=== PATIENT | male | born 1935 | race African-American/Black ===

== ENCOUNTER 2020-08-10 08:13 | Inpatient (IN) | payer OTHER ==
[~2020-08-10] VITALS: Ht 188 cm; Wt 50.8 kg
[2020-08-10] VITALS (10 sets, daily range): BP systolic 126–158; BP diastolic 55–113
--- NOTE | 2020-08-10 08:15 | NUR ---
ED Nurse Note: pt [facility] c/o desaturation to 81%n and dyspnea started this am. pt placed directly into isolation room onto telemetry monitoring. md aware of pt and eval of pt. resp therapist here to obtain ABG and then pt placed on NRB mask with improved saturation to 97%. pt with shallow dyspnea noted. occ coarse non productive cough noted. pt with incomprehensible speech. pt unable to follow commands. pt with iv attempts being made. difficult to obtain labs. labs sent except blood cultures as unable to obtain.
--- NOTE | 2020-08-10 08:20 | Emergency Room Report ---
History of Present Illness General Chief Complaint: Dyspnea/Respdistress Source: Medical Record, EMS Present Illness HPI Disclaimer: Please note that this report is being documented using DRAGON technology. This can lead to erroneous entry secondary to incorrect interpretation by the dictating instrument. HPI: 85-year-old male presents for evaluation of hypoxia. Presents from [facility] for decreased oxygen saturation in the 80s. Placed on nonrebreather improved to 92%. Patient is lethargic and cannot provide any add itional history at this time. Accompanying paperwork shows recent admission to [facility] for sepsis secondary to COVID-19. He is full code according to that documentation but no POLST is provided. No further information available from EMS. PMH: Hypertension, diabetes, COVID-19 PSH: Unable to obtain Allergies: Unable to obtain Social Hx: Unable to obtain Allergies: Coded Allergies: No Known Allergies (Unverified , 08/10/20) COVID-19 Screening Contact w/high risk pt: No Experienced COVID-19 symptoms?: Yes COVID-19 Testing performed SUCTION ROLLER: Yes COVID-19 Screening: Positive COVID-19 COVID-19 Testing Source: [facility] Review of Systems All Other Systems: limited - Unable to obtain from patient Physical Exam Vital Signs Date Time Temp Pulse Resp B/P (MAP) Pulse Ox O2 Delivery O2 Flow Rate FiO2 08/10/20 08:07 97.9 96 26 158/84 (108) 92 Non-Rebreather 15.0 General: Lethargic but arousable to light stimulation. HEENT: NC/AT. EOMI. Cardiovascular: Tachycardic. S1 and S2 normal. No murmur appreciated Resp: Tachypnea, nonrebreather 15 L. Pulse ox 92%. Shallow breathing. Abdomen: Abdomen is soft, nondistended. Nontender Skin: Intact. No abrasions, laceration or rash over the exposed skin MSK: Frail appearing. Decreased bulk globally. Moving all extremities. Neuro: Awake but lethargic. Procedures Critical Care Time Critical Care Time Total critical care time: Approximately 45 minutes Due to a high probability of clinically significant, life threatening deterioration, the patient required the highest level of preparedness to intervene emergently and I personally spent this critical care time directly and personally managing the patient. This critical care time included obtaining a history, examining the patient, pulse oximetry, ordering and reviewing studies, ordering treatments, evaluating response to treatment and updating management plan as needed, frequent reassessment and discussion with other providers as well as arranging for ultimate disposition. This critical to care time was performed to assess and manage the high probability of life-threatening deterioration that could result in multiorgan failure. This critical care time is separate from the separately billable procedures and treating other patients. Medical Decision Making Diagnostic Impression: Primary Impression: Encephalopathy Additional Impressions: COVID-19 Elevated d-dimer Sepsis ER Course Is an 85-year-old male presenting for evaluation of respiratory distress and hypoxia. Recently tested positive for COVID-19 and appears he was admitted to [facility]. Arrives on 15 L nonrebreather. Blood gas shows no acidosis oxygen saturations are maintained. No obvious consolidation appreciated on x-ray. Patient remains positive for COVID-19 according to rapid swab. Receiving 30 cc/kg IV fluid bolus for tachycardia. Broad cultures are sent. He is afebrile. Decadron given. Will admit the patient to his assigned hospitalist per health plan, Dr. Fagan, for sepsis secondary to COVID-19 infection. Sepsis reevaluation: I, Dr. Kj Tejada, reevaluated the patient Capillary refill: Less than 2 seconds MAP: 130 Heart rate: 120 Respiratory rate: 20 Initial Lactate: 4.5 Repeat Lactate: Pending Pressors: Not indicated at this time No signs of fluid overload Laboratory Tests Test 08/10/20 08:08 08/10/20 08:41 Arterial Blood pH 7.390 (7.350-7.450) Arterial Blood Partial Pressure CO2 30.7 mmHg (35.0-45.0) L Arterial Blood Partial Pressure O2 80.3 mmHg (75.0-100.0) Arterial Blood HCO3 18.2 mmol/L (22.0-26.0) L Arterial Blood Oxygen Saturation 94.7 % (95-100) L Arterial Blood Base Excess -5.6 (-2-2) L Oleksandr Test Positive White Blood Count 6.7 K/UL (4.8-10.8) Red Blood Count 4.24 M/UL (4.70-6.10) L Hemoglobin 13.8 G/DL (14.2-18.0) L Hematocrit 42.3 % (42.0-52.0) Mean Corpuscular Volume 100 FL (80-99) H Mean Corpuscular Hemoglobin 32.6 PG (27.0-31.0) H Mean Corpuscular Hemoglobin Concent 32.7 G/DL (32.0-36.0) Red Cell Distribution Width 11.2 % (11.6-14.8) L Platelet Count 119 K/UL (150-450) L Mean Platelet Volume 9.1 FL (6.5-10.1) Neutrophils (%) (Auto) 83.7 % (45.0-75.0) H Lymphocytes (%) (Auto) 10.0 % (20.0-45.0) L Monocytes (%) (Auto) 5.8 % (1.0-10.0) Eosinophils (%) (Auto) 0.2 % (0.0-3.0) Basophils (%) (Auto) 0.4 % (0.0-2.0) Prothrombin Time 12.0 SEC (9.30-11.50) H Prothrombin Time INR 1.1 (0.9-1.1) Activated Partial Thromboplast Time 28 SEC (23-33) D-Dimer 0.95 mg/L FEU (0.00-0.49) H Sodium Level 139 MMOL/L (136-145) Potassium Level 4.9 MMOL/L (3.5-5.1) Chloride Level 105 MMOL/L (98-107) Carbon Dioxide Level 23 MMOL/L (21-32) Anion Gap 11 mmol/L (5-15) Blood Urea Nitrogen 13 mg/dL (7-18) Creatinine 1.3 MG/DL (0.55-1.30) Estimated Glomerular Filtration Rate > 60 mL/min (>60) Glucose Level 140 MG/DL (74-106) H Lactic Acid Level 4.60 mmol/L (0.4-2.0) H Calcium Level 9.3 MG/DL (8.5-10.1) Phosphorus Level 3.2 MG/DL (2.5-4.9) Magnesium Level 2.0 MG/DL (1.8-2.4) Ferritin 1927 NG/ML (8-388) H Total Bilirubin 0.8 MG/DL (0.2-1.0) Aspartate Amino Transferase (AST) 88 U/L (15-37) H Alanine Aminotransferase (ALT) 83 U/L (12-78) H Alkaline Phosphatase 67 U/L (46-116) Lactate Dehydrogenase 396 U/L (81-234) H Total Creatine Kinase 252 U/L (26-308) Creatine Kinase MB 1.3 NG/ML (0.0-3.6) Creatine Kinase MB Relative Index 0.5 Troponin I 0.000 ng/mL (0.000-0.056) C-Reactive Protein, Quantitative 3.2 mg/dL (0.00-0.90) H Pro-B-Type Natriuretic Peptide 818 pg/mL (0-125) H Total Protein 7.4 G/DL (6.4-8.2) Albumin 3.3 G/DL (3.4-5.0) L Globulin 4.1 g/dL Albumin/Globulin Ratio 0.8 (1.0-2.7) L Lipase 80 U/L (73-393) Microbiology Date/Time Source Procedure Growth Status 08/10/20 08:41 Nasopharynx SARS-CoV-2 RdRp Gene Assay - Final Complete EKG Diagnostic Results Troponin ordered: Yes When was troponin ordered?: Aug 10, 2020 EKG Time: 08:46 Rate: tachycardiac Rhythm: NSR Other Impression Sinus tachycardia, normal axis, nonspecific ST changes, QTc interval 433 ms Rhythm Strip Diag. Results Rhythm Strip Time: 08:46 EP Interpretation: yes Rate: 110 Rhythm: NSR, no PVC's, no ectopy Chest X-Ray Diagnostic Results Chest X-Ray Diagnostic Results : Chest X-Ray Ordered: Yes # of Views/Limited/Complete: 1 View Indication: Shortness of Breath EP Interpretation: Yes Interpretation: no consolidation, no effusion, no pneumothorax, no acute cardiopulmonary disease Impression: No acute disease Electronically Signed by: Electronically signed by Dr. Kj Tejada MD Last Vital Signs Date Time Temp Pulse Resp B/P (MAP) Pulse Ox O2 Delivery O2 Flow Rate FiO2 08/10/20 08:07 97.9 96 26 158/84 (108) 92 Non-Rebreather 15.0 Disposition: ADMITTED INPATIENT Condition: Serious Kj Tejada MD Aug 10, 2020 08:20
[2020-08-10] MEDS ORDERED: FERROUS SULFAT325 MG ORAL (08:24)
[2020-08-10] MEDS ORDERED: MULTIVITAMINS1 EAC8 ORAL (08:24)
[2020-08-10] MEDS ORDERED: LOVASTATIN20 MG ORAL (08:24)
[2020-08-10] MEDS ORDERED: LATANOPROST2.5 ML BOTH EYES (08:24)
[2020-08-10] MEDS ORDERED: COSOPT EYE DROP10 M1 BOTH EYES (08:24)
[2020-08-10] MEDS ORDERED: XARELTO10 MG ORAL (08:24)
--- NOTE | 2020-08-10 08:50 | NUR ---
ED Nurse Note: pt with improved saturation with NRB in use. remains at same mentation. md aware of ecg resulted.
--- NOTE | 2020-08-10 09:21 | NUR ---
ED Nurse Note: Called [facility] for xray.
[2020-08-10 09:39] LABS: BASOPHILS % (AUTO) 0.4 % (0.0-2.0); EOSINOPHILS % (AUTO) 0.2 % (0.0-3.0); HEMATOCRIT 42.3 % (42.0-52.0); HEMOGLOBIN 13.8 G/DL (14.2-18.0); MEAN CORPUSCULAR VOLUME 100 FL (80-99); MONOCYTES % (AUTO) 5.8 % (1.0-10.0); NEUTROPHILS % (AUTO) 83.7 % (45.0-75.0); PLATELET COUNT 119 K/UL (150-450); RED BLOOD COUNT 4.24 M/UL (4.70-6.10); RED CELL DISTRIBUTION WIDTH 11.2 % (11.6-14.8); WHITE BLOOD COUNT 6.7 K/UL (4.8-10.8)
[2020-08-10] MEDS ORDERED: Sodium Chloride 2,200 ML IVLG ONE (09:45)
[2020-08-10 09:49] LABS: INR 1.1 (0.9-1.1)
[2020-08-10 09:50] LABS: ANION GAP 11 mmol/L (5-15); BLOOD UREA NITROGEN 13 mg/dL (7-18); CALCIUM 9.3 MG/DL (8.5-10.1); CARBON DIOXIDE 23 MMOL/L (21-32); CHLORIDE 105 MMOL/L (98-107); CREATININE 1.3 MG/DL (0.55-1.30); POTASSIUM 4.9 MMOL/L (3.5-5.1); SODIUM 139 MMOL/L (136-145)
[2020-08-10 10:19] LABS: ALANINE AMINOTRANSFERASE 83 U/L (12-78); ALBUMIN 3.3 G/DL (3.4-5.0); ALBUMIN/GLOBULIN RATIO 0.8 (1.0-2.7); ALKALINE PHOSPHATASE 67 U/L (46-116); ASPARTATE AMINO TRANSFERASE 88 U/L (15-37); BILIRUBIN,TOTAL 0.8 MG/DL (0.2-1.0); CKMB 1.3 NG/ML (0.0-3.6); CREATINE KINASE 252 U/L (26-308); FERRITIN 1927 NG/ML (8-388); LACTATE DEHYDROGENASE 396 U/L (81-234); PHOSPHORUS 3.2 MG/DL (2.5-4.9)
[2020-08-10] MEDS ORDERED: Vancomycin 1 GM in NS 275 ML IVPB ONE (10:30)
[2020-08-10] MEDS ORDERED: Piperacillin/Tazobactam 3.375 GM in NS 110 ML IVPB ONE (10:30)
--- NOTE | 2020-08-10 10:44 | NUR ---
ED Nurse Note: learning and development officer called to draw bcx2 and repeat lactic sample as pt is difficult lab draw
--- NOTE | 2020-08-10 11:10 | NUR ---
ED Nurse Note: repeat lactic sent and bc x2 sent. pt changed to 3L via NC O2 and antibitoics infusing.
--- NOTE | 2020-08-10 11:18 | NUR ---
ED Nurse Note: Ulysses rouse of pt.
[2020-08-10 11:32] LABS: APPEARANCE,URINE CLEAR; BILIRUBIN, URINE NEGATIVE (NEGATIVE); GLUCOSE, URINE (UA) 2+ (NEGATIVE); KETONES,URINE 1+ (NEGATIVE); LEUKOCYTE ESTERASE ,URINE NEGATIVE (NEGATIVE); NITRITE,URINE NEGATIVE (NEGATIVE); PH,URINE 6 (4.5-8.0); PROTEIN,URINE 2+ (NEGATIVE); UROBILINOGEN,URINE NORMAL MG/DL (0.0-1.0)
[2020-08-10 11:40] LABS: COLOR,URINE YELLOW
--- NOTE | 2020-08-10 11:48 | History and Physical ---
Orly Dick SET UP TECHNICIAN 08/10/20 1148: History of Present Illness General Date patient seen: Aug 10, 2020 Time patient seen: 11:00 Reason for Hospitalization: Dyspnea/Respdistress Present Illness HPI 85 years old male, resident of [facility] facility, with past medical history of hypertension, diabetes mellitus, recent COVID-19, was sent for evaluation due to hypoxia. Patient was noted in the facility to have pulse oximetry in the 80s. Patient was placed on 100% nonrebreathing mask with improvement in saturation to 92%. Patient was unable to provide any history . Patient was recently admitted to [facility] for generalized weakness, was diagnosed with COVID-19, was doing better and never was treated with steroids or Remdesivivr. Patient was on Xarelto for DVT prophylaxis Upon evaluation in emergency department pulse oximetry was 92% on 100% nonrebreather mask, ABG on NRM was stable. Rapid COVID-19 was positive No leukocytosis , hemoglobin 13.8 , hematocrit 42.3, platelet count 119 . D-dimer 0.95 LDH 396, ferritin 1927, CRP 3.2 Electrolytes and renal parameters stable. Lactic acid 4.6 Troponin negative , pro BNP [address] no acute ischemic changes Albumin 3.3 . Urinalysis pending at this time. CXR final report pending In emergency department patient received empiric antibiotic, septic work-up initiated : pt received fluid bolus, pancultured, started on empiric antibiotic and will be admitted for further management. Allergies: Coded Allergies: No Known Allergies (Unverified , 08/10/20) COVID-19 Screening Contact w/high risk pt: No Experienced COVID-19 symptoms?: Yes Coronavirus symptoms experienc: Shortness of Breath Medication History Scheduled Aspirin* (Aspirin*), 81 MG ORAL DAILY, (Reported) Dorzolamide Hcl/Timolol Maleat (Cosopt Eye Drops), ML OP TWICE A DAY, (Reported) Enoxaparin* (Lovenox*), 40 MG SUBQ DAILY, (Reported) Ferrous Sulfate* (Ferrous Sulfate*), 325 MG ORAL DAILY, (Reported) Latanoprost* (Xalatan*), 1 DROP BOTH EYES BEDTIME, (Reported) Lovastatin (Lovastatin), 20 MG ORAL BEDTIME, (Reported) Multivitamin With Minerals (Multivitamins With Minerals*), 1 TAB ORAL DAILY, (Reported) Rivaroxaban (Xarelto*), 10 MG ORAL DAILY, (Reported) Patient History Healthcare decision maker Resuscitation status full code Advanced Directive on File Review of Systems ROS Narrative unable to provide given encephalopathy Physical Exam General Appearance: cachetic, other - chroncially ill looking, bedridden frail male Lines, tubes and drains: peripheral HEENT: normocephalic, atraumatic, anicteric, other - on NRM Neck: non-tender, normal inspection, other - trachea midline Respiratory/Chest: no accessory muscle use, other - few isolated rhonchi Cardiovascular/Chest: regular rhythm, tachycardia - ST low tachy Abdomen: normal bowel sounds, non tender, soft Extremities: no calf tenderness, normal capillary refill, no edema Neurologic: abnormal gait, other - confused, poorly responsive, moves all extremities Musculoskeletal: atrophy - BLE Last 24 Hour Vital Signs Date Time Temp Pulse Resp B/P (MAP) Pulse Ox O2 Delivery O2 Flow Rate FiO2 08/10/20 11:13 99 22 138/62 100 Nasal Cannula 3.0 08/10/20 11:00 118 25 138/62 99 Non-Rebreather 08/10/20 10:26 102 23 Non-Rebreather 15.0 08/10/20 10:00 102 23 150/104 99 Non-Rebreather 08/10/20 09:00 102 20 158/84 98 Non-Rebreather 08/10/20 08:15 108 21 151/113 86 Room Air 08/10/20 08:07 97.9 96 26 158/84 (108) 92 Non-Rebreather 15.0 Laboratory Tests Test 08/10/20 08:08 08/10/20 08:41 08/10/20 08:50 08/10/20 11:08 Arterial Blood pH 7.390 (7.350-7.450) Arterial Blood Partial Pressure CO2 30.7 mmHg (35.0-45.0) L Arterial Blood Partial Pressure O2 80.3 mmHg (75.0-100.0) Arterial Blood HCO3 18.2 mmol/L (22.0-26.0) L Arterial Blood Oxygen Saturation 94.7 % (95-100) L Arterial Blood Base Excess -5.6 (-2-2) L Oleksandr Test Positive White Blood Count 6.7 K/UL (4.8-10.8) Red Blood Count 4.24 M/UL (4.70-6.10) L Hemoglobin 13.8 G/DL (14.2-18.0) L Hematocrit 42.3 % (42.0-52.0) Mean Corpuscular Volume 100 FL (80-99) H Mean Corpuscular Hemoglobin 32.6 PG (27.0-31.0) H Mean Corpuscular Hemoglobin Concent 32.7 G/DL (32.0-36.0) Red Cell Distribution Width 11.2 % (11.6-14.8) L Platelet Count 119 K/UL (150-450) L Mean Platelet Volume 9.1 FL (6.5-10.1) Neutrophils (%) (Auto) 83.7 % (45.0-75.0) H Lymphocytes (%) (Auto) 10.0 % (20.0-45.0) L Monocytes (%) (Auto) 5.8 % (1.0-10.0) Eosinophils (%) (Auto) 0.2 % (0.0-3.0) Basophils (%) (Auto) 0.4 % (0.0-2.0) Prothrombin Time 12.0 SEC (9.30-11.50) H Prothromb Time International Ratio 1.1 (0.9-1.1) Activated Partial Thromboplast Time 28 SEC (23-33) D-Dimer 0.95 mg/L FEU (0.00-0.49) H Sodium Level 139 MMOL/L (136-145) Potassium Level 4.9 MMOL/L (3.5-5.1) Chloride Level 105 MMOL/L (98-107) Carbon Dioxide Level 23 MMOL/L (21-32) Anion Gap 11 mmol/L (5-15) Blood Urea Nitrogen 13 mg/dL (7-18) Creatinine 1.3 MG/DL (0.55-1.30) Estimat Glomerular Filtration Rate > 60 mL/min (>60) Glucose Level 140 MG/DL (74-106) H Lactic Acid Level 4.60 mmol/L (0.4-2.0) H Pending Calcium Level 9.3 MG/DL (8.5-10.1) Phosphorus Level 3.2 MG/DL (2.5-4.9) Magnesium Level 2.0 MG/DL (1.8-2.4) Ferritin 1927 NG/ML (8-388) H Total Bilirubin 0.8 MG/DL (0.2-1.0) Aspartate Amino Transf (AST/SGOT) 88 U/L (15-37) H Alanine Aminotransferase (ALT/SGPT) 83 U/L (12-78) H Alkaline Phosphatase 67 U/L (46-116) Lactate Dehydrogenase 396 U/L (81-234) H Total Creatine Kinase 252 U/L (26-308) Creatine Kinase MB 1.3 NG/ML (0.0-3.6) Creatine Kinase MB Relative Index 0.5 Troponin I 0.000 ng/mL (0.000-0.056) C-Reactive Protein, Quantitative 3.2 mg/dL (0.00-0.90) H Pro-B-Type Natriuretic Peptide 818 pg/mL (0-125) H Total Protein 7.4 G/DL (6.4-8.2) Albumin 3.3 G/DL (3.4-5.0) L Globulin 4.1 g/dL Albumin/Globulin Ratio 0.8 (1.0-2.7) L Lipase 80 U/L (73-393) Urine Color Pending Urine Appearance Pending Urine pH Pending Urine Specific [place] Pending Urine Protein Pending Urine Glucose (UA) Pending Urine Ketones Pending Urine Blood Pending Urine Nitrite Pending Urine Bilirubin Pending Urine Urobilinogen Pending Urine Leukocyte Esterase Pending Microbiology Date/Time Source Procedure Growth Status 08/10/20 08:41 Nasopharynx SARS-CoV-2 RdRp Gene Assay - Final Complete Height (Feet): 6 Height (Inches): 2.00 Weight (Pounds): 160 Medications Current Medications Medications (Trade) Dose Ordered Sig/Torsten Route PRN Reason Start Time Stop Time Status Last Admin Dose Admin Vancomycin HCl 1 gm/Sodium Chloride 275 ml @ 183.708 mls/hr ONCE ONCE IVPB 08/10/20 10:30 08/10/20 11:59 Assessment/Plan Assessment/Plan: ASSESSMENT Probably sepsis Recent COVID infection/ never treated Probable PNA Aspiration risk Acute encephalopathy Elevated D dimer HTN DM Protein calorie malnutrition PLAN OF CARE admit to isolation room titrate Fio2 to keep sat above 92%, wean down from NRM as possible Albuterol via MDI prn empiric abx, fup with cx steroids ID consult pending recent COVID 19 at [facility], probably treated with steroids, abx and Remdesivir - will check link closely monitor resp status fup with CXR on Tuesday venous Duplex BLE aspiration precautions DVT prophylaxis BSSE when more awake gentle hydration keep NPO for now BP and BS management GI prophylaxis route sales manager consult supportive care full code case discussed and evaluated by supervising physician Sonu Fagan MD 08/10/20 1548: History of Present Illness General Reason for Hospitalization: Dyspnea/Respdistress Present Illness Allergies: Coded Allergies: No Known Allergies (Unverified , 08/10/20) Medication History Scheduled Aspirin* (Aspirin*), 81 MG ORAL DAILY, (Reported) Dorzolamide Hcl/Timolol Maleat (Cosopt Eye Drops), ML OP TWICE A DAY, (Reported) Enoxaparin* (Lovenox*), 40 MG SUBQ DAILY, (Reported) Ferrous Sulfate* (Ferrous Sulfate*), 325 MG ORAL DAILY, (Reported) Latanoprost* (Xalatan*), 1 DROP BOTH EYES BEDTIME, (Reported) Lovastatin (Lovastatin), 20 MG ORAL BEDTIME, (Reported) Multivitamin With Minerals (Multivitamins With Minerals*), 1 TAB ORAL DAILY, (Reported) Rivaroxaban (Xarelto*), 10 MG ORAL DAILY, (Reported) Orly Dick NP Aug 10, 2020 11:48 Sonu Fagan MD Aug 10, 2020 15:48
--- NOTE | 2020-08-10 11:55 | NUR ---
ED Nurse Note: pt continues to tolerate O2 via NC. abx and ivf infusion as noted. pt without mental status changes pt is awake and confused.
[2020-08-10] MEDS ORDERED: dexAMETHasone 10mg/ml Inj IV ONE (12:00)
--- NOTE | 2020-08-10 12:06 | NUR ---
ED Nurse Note: pt to be admitted to SDU at this time per dr reyez, lost charge card clerk notifying rn appliance service supervisor.
[2020-08-10] MEDS ORDERED: Vancomycin 750mg/NS 275ml IVPB ONE ×4 (13:30→16:00)
[2020-08-10] MEDS ORDERED: Albuterol 90mcg Inhaler 8gm INH PRN (13:30)
[2020-08-10] MEDS ORDERED: Potassium Chloride 10 MEQ in D5 1/2NS 1,000 ML IV SCH (13:30)
--- NOTE | 2020-08-10 14:08 | NUR ---
ED Nurse Note: report given to SDU rn. pt with stable vs.
--- NOTE | 2020-08-10 14:24 | NUR ---
ED Nurse Note: Dr. Ventura here to ambrose pt.
--- NOTE | 2020-08-10 14:30 | NUR ---
ED Nurse Note: pt transported to [facility]du with covid and acls protocols.
[2020-08-10] MEDS ORDERED: Varibar Pudding 230ml MC PRN (14:45)
[2020-08-10] MEDS ORDERED: Varibar Nectar 240ml MC PRN (14:45)
[2020-08-10] MEDS ORDERED: Varibar Thin Liquid powder 148gm MC PRN (14:45)
[2020-08-10] MEDS ORDERED: Varibar Honey 250ml MC PRN (14:45)
--- NOTE | 2020-08-10 15:00 | NUR ---
NURSE NOTES: Received report from MIRTA Leigh. Patient in bed resting, no active s/s cardiac, respiratory distress noticed at this time. Patient on 3L oxygen via NC, o2 sat 97% at this time. Patient open eyes spontaneously, does not follow command, rambling speech. laboratory monitor on, SR with HR 78. Vital signs taken. Espino Catheter patent, intact, draining well to gravity. IV on right and left hand 20G, asymptomatic, patent, intact. NPO at this time. contact, droplet, standard isolation initiate. Bed in lowest position, side rails upx3, call light within reach, bed alarm on, Will continue to monitor.
--- NOTE | 2020-08-10 15:05 | Infectious Diseases Prog Note ---
Assessment/Plan Assessment/Plan Full consult dictated: A) 1) covid-19 infection, pna, hypoxia 2) possible bacterial pna 3) possible sepsis P) 1) vancomycin and zosyn 2) remdesivir and dexamethasone 3) supportive care 4) will f/u 5) thanks Subjective Allergies: Coded Allergies: No Known Allergies (Unverified , 08/10/20) Objective Last 24 Hour Vital Signs Date Time Temp Pulse Resp B/P (MAP) Pulse Ox O2 Delivery O2 Flow Rate FiO2 08/10/20 14:13 86 23 129/80 100 Nasal Cannula 3.0 08/10/20 13:30 89 23 138/79 100 Nasal Cannula 3.0 08/10/20 11:54 95 22 127/55 100 Nasal Cannula 3.0 08/10/20 11:13 99 22 138/62 100 Nasal Cannula 3.0 08/10/20 11:00 118 25 138/62 99 Non-Rebreather 08/10/20 10:26 102 23 Non-Rebreather 15.0 08/10/20 10:00 102 23 150/104 99 Non-Rebreather 08/10/20 09:00 102 20 158/84 98 Non-Rebreather 08/10/20 08:15 108 21 151/113 86 Room Air 08/10/20 08:07 97.9 96 26 158/84 (108) 92 Non-Rebreather 15.0 Height (Feet): 6 Height (Inches): 2.00 Weight (Pounds): 160 Microbiology Date/Time Source Procedure Growth Status 08/10/20 08:41 Nasopharynx SARS-CoV-2 RdRp Gene Assay - Final Complete Laboratory Tests Test 08/10/20 08:08 08/10/20 08:41 08/10/20 08:50 08/10/20 11:08 Arterial Blood pH 7.390 (7.350-7.450) Arterial Blood Partial Pressure CO2 30.7 mmHg (35.0-45.0) L Arterial Blood Partial Pressure O2 80.3 mmHg (75.0-100.0) Arterial Blood HCO3 18.2 mmol/L (22.0-26.0) L Arterial Blood Oxygen Saturation 94.7 % (95-100) L Arterial Blood Base Excess -5.6 (-2-2) L Oleksandr Test Positive White Blood Count 6.7 K/UL (4.8-10.8) Red Blood Count 4.24 M/UL (4.70-6.10) L Hemoglobin 13.8 G/DL (14.2-18.0) L Hematocrit 42.3 % (42.0-52.0) Mean Corpuscular Volume 100 FL (80-99) H Mean Corpuscular Hemoglobin 32.6 PG (27.0-31.0) H Mean Corpuscular Hemoglobin Concent 32.7 G/DL (32.0-36.0) Red Cell Distribution Width 11.2 % (11.6-14.8) L Platelet Count 119 K/UL (150-450) L Mean Platelet Volume 9.1 FL (6.5-10.1) Neutrophils (%) (Auto) 83.7 % (45.0-75.0) H Lymphocytes (%) (Auto) 10.0 % (20.0-45.0) L Monocytes (%) (Auto) 5.8 % (1.0-10.0) Eosinophils (%) (Auto) 0.2 % (0.0-3.0) Basophils (%) (Auto) 0.4 % (0.0-2.0) Prothrombin Time 12.0 SEC (9.30-11.50) H Prothromb Time International Ratio 1.1 (0.9-1.1) Activated Partial Thromboplast Time 28 SEC (23-33) D-Dimer 0.95 mg/L FEU (0.00-0.49) H Sodium Level 139 MMOL/L (136-145) Potassium Level 4.9 MMOL/L (3.5-5.1) Chloride Level 105 MMOL/L (98-107) Carbon Dioxide Level 23 MMOL/L (21-32) Anion Gap 11 mmol/L (5-15) Blood Urea Nitrogen 13 mg/dL (7-18) Creatinine 1.3 MG/DL (0.55-1.30) Estimat Glomerular Filtration Rate > 60 mL/min (>60) Glucose Level 140 MG/DL (74-106) H Lactic Acid Level 4.60 mmol/L (0.4-2.0) H 4.10 mmol/L (0.66-2.22) H Calcium Level 9.3 MG/DL (8.5-10.1) Phosphorus Level 3.2 MG/DL (2.5-4.9) Magnesium Level 2.0 MG/DL (1.8-2.4) Ferritin 1927 NG/ML (8-388) H Total Bilirubin 0.8 MG/DL (0.2-1.0) Aspartate Amino Transf (AST/SGOT) 88 U/L (15-37) H Alanine Aminotransferase (ALT/SGPT) 83 U/L (12-78) H Alkaline Phosphatase 67 U/L (46-116) Lactate Dehydrogenase 396 U/L (81-234) H Total Creatine Kinase 252 U/L (26-308) Creatine Kinase MB 1.3 NG/ML (0.0-3.6) Creatine Kinase MB Relative Index 0.5 Troponin I 0.000 ng/mL (0.000-0.056) C-Reactive Protein, Quantitative 3.2 mg/dL (0.00-0.90) H Pro-B-Type Natriuretic Peptide 818 pg/mL (0-125) H Total Protein 7.4 G/DL (6.4-8.2) Albumin 3.3 G/DL (3.4-5.0) L Globulin 4.1 g/dL Albumin/Globulin Ratio 0.8 (1.0-2.7) L Lipase 80 U/L (73-393) Urine Color Yellow Urine Appearance Clear Urine pH 6 (4.5-8.0) Urine Specific [place] 1.015 (1.005-1.035) Urine Protein 2+ (NEGATIVE) H Urine Glucose (UA) 2+ (NEGATIVE) H Urine Ketones 1+ (NEGATIVE) H Urine Blood 2+ (NEGATIVE) H Urine Nitrite Negative (NEGATIVE) Urine Bilirubin Negative (NEGATIVE) Urine Urobilinogen Normal MG/DL (0.0-1.0) Urine Leukocyte Esterase Negative (NEGATIVE) Urine RBC 2-4 /HPF (0 - 0) H Urine WBC 0 /HPF (0 - 0) Urine Squamous Epithelial Cells Few /LPF (NONE/OCC) Urine Bacteria Few /HPF (NONE) Current Medications Medications (Trade) Dose Ordered Sig/Torsten Route PRN Reason Start Time Stop Time Status Last Admin Dose Admin Acetaminophen (Tylenol) 650 mg Q4H PRN ORAL Mild Pain (Pain Scale 1-3) 08/10/20 11:45 09/09/20 11:44 Albuterol Sulfate (Proventil MDI) 2 puff Q4H PRN INH Shortness of Breath 08/10/20 13:30 11/08/20 13:29 Barium Sulfate (Varibar Honey) 250 ml NOW PRN MC RAD 08/10/20 14:45 08/13/20 14:34 Barium Sulfate (Varibar [place]) 240 ml NOW PRN MC RAD 08/10/20 14:45 08/13/20 14:34 Barium Sulfate (Varibar Pudding) 230 ml NOW PRN MC RAD 08/10/20 14:45 08/13/20 14:34 Barium Sulfate (Varibar Thin Liquid powder) 148 gm NOW PRN MC RAD 08/10/20 14:45 08/13/20 14:34 Dexamethasone Sodium Phosphate (Decadron 10mg/ ml Inj) 6 mg DAILY IV 08/11/20 09:00 08/20/20 09:01 Dextrose (Dextrose 50%) 25 ml Q30M PRN IV Hypoglycemia 08/10/20 11:45 11/08/20 11:44 Dextrose (Dextrose 50%) 50 ml Q30M PRN IV Hypoglycemia 08/10/20 11:45 11/08/20 11:44 Dextrose/Sodium Chloride 1,000 ml @ 50 mls/hr Q20H IV 08/10/20 12:45 09/09/20 12:44 Heparin Sodium (Porcine) (Heparin 5000 units/ml) 5,000 units EVERY 12 HOURS SUBQ 08/10/20 21:00 09/24/20 20:59 Pantoprazole (Protonix) 40 mg DAILY IV 08/11/20 09:00 09/10/20 08:59 Piperacillin Sod/ Tazobactam Sod 3.375 gm/Sodium Chloride 110 ml @ 27.5 mls/hr EVERY 8 HOURS IVPB 08/10/20 18:00 08/15/20 17:59 Remdesivir 100 mg/ Sodium Chloride 250 ml @ 250 mls/hr Q24H IV 08/11/20 18:00 08/14/20 18:59 Remdesivir 200 mg/ Sodium Chloride 250 ml @ 125 mls/hr ONCE IV 08/10/20 18:00 08/10/20 19:59 Vancomycin HCl (Vanco pharmacy to dose) 1 ea DAILY PRN MISC Per rx protocol 08/10/20 11:45 09/09/20 11:44 Vancomycin HCl 500 mg/Dextrose 110 ml @ 110 mls/hr Q12H IVPB 08/10/20 23:00 08/15/20 22:59 Byron Byers MD Aug 10, 2020 15:05
[2020-08-10] MEDS ORDERED: LOVENOX10 M4 SUBQ (15:07)
[2020-08-10] MEDS ORDERED: ASPIRIN81 MG ORAL (15:07)
--- NOTE | 2020-08-10 15:40 | NUR ---
NURSE NOTES: Per Kapil WATER TAXI OPERATOR, NPO until speech evaluation, Oxygen 3L via NC.
[2020-08-10] MEDS: D5 1/2NS 1,000 ML IV SCH (15:51)
--- NOTE | 2020-08-10 17:50 | NUR ---
NURSE NOTES: Per JETT Dick, sliding scale with average. Order noted, entered, and carried out.
[2020-08-10] MEDS ORDERED: Loading Dose:Remdesivir 200mg/NS 210ml IV SCH ×2 (18:00)
[2020-08-10] MEDS: Piperacillin/Tazobactam 3.375 GM in NS 110 ML IVPB SCH (18:29)
--- NOTE | 2020-08-10 18:30 | NUR ---
NURSE NOTES: Per Dr. Byers, Remdesvir ordered, per pharmacist, no consent needed at this time.
--- NOTE | 2020-08-10 19:20 | NUR ---
NURSE NOTES: Received report from MIRTA Uribe. Pt asleep in bed, Alert and oriented x 1 to name only. Pt follows commands, afebrile and no respiratory distress noted. On Nasal cannula at 3 lpm pt saturating at 99-100%. With right wrist 20g and left hand 22g IV lines intact, patent and asymptomatic. With cardenas catheter to urine bag draining well with ana yellow urine. HOB elevated. Needs were attended. Call light within reach. Bed rails are up and wheels are locked Continue plan of care Addendum: 08/10/20 at 2005 by CLEOPATRA Guillen RN correction: Pt does not follow commands but opens eyes
--- NOTE | 2020-08-10 19:24 | NUR ---
NURSE HAND-OFF REPORT: Important Events on Shift: admitted to SDU Patient Status: stable Diet: NPO Pending Orders: na Pending Results/Labs:na Pending MD notification:na Latest Vital Signs: Temperature 98.6 , Pulse 89 , B/P 126 /81 , Respiratory Rate 20 , O2 SAT 96 , Nasal Cannula, O2 Flow Rate 3.0 . Vital Sign Comment: stable EKG Rhythm: Sinus Rhythm Rhythm change?: N MD Notified?: - MD Response: Latest Jacobsen Fall Score: 75 Fall Risk: High Risk Safety Measures: Call light Within Reach, Bed Alarm Zone 2, Side Rails Side Rails x3, Bed position Low and Locked. Fall Precautions: Yellow Socks Yellow Gown Door Sign Patient Fall Education Report given to MIRTA WHELAN.
[2020-08-10] MEDS ORDERED: Heparin 5000 units/ml inj SUBQ SCH (21:00)
[2020-08-10] MEDS: NovoLOG Insulin Flexpen SUBQ SCH (21:00)
--- NOTE | 2020-08-10 22:15 | Consultation ---
DATE OF CONSULTATION: 08/10/2020 INFECTIOUS DISEASE CONSULTATION CONSULTING PHYSICIAN: Byron Byers MD ATTENDING PHYSICIAN: Sonu Fagan MD REFERRING PHYSICIAN: Sonu Fagan MD REASON FOR CONSULTATION: COVID-19 infection, hypoxia, pneumonia, sepsis. CHIEF COMPLAINT: Patient's chief complaint into the hospital COVID pneumonia, hypoxia. HISTORY OF PRESENT ILLNESS: This is an 85-year-old male who was seen in the emergency room. Patient I believe at [facility] was diagnosed with COVID infection. Patient was not given remdesivir or steroids. Patient was at [facility] for generalized weakness also. He was diagnosed with COVID pneumonia. Patient now presents to [facility] from a senior living facility for hypoxia. Patient is being admitted for hypoxia, COVID-19 infection, and pneumonia. Infectious Disease consultation is requested. Patient will be started on dexamethasone and remdesivir. Patient is also on Vanco and Zosyn for possible aspiration and healthcare-acquired pneumonia versus community-acquired pneumonia. MAR was noted. Orders were noted. Notes and records were reviewed. Case discussed with Dr. Fagan and pharmacy. Remdesivir will be started in addition to steroids. Patient's lactic acid was also elevated. We will continue Vanco and Zosyn for now also for possible sepsis and bacterial pneumonia. Patient is currently in COVID isolation. REVIEW OF SYSTEMS: CONSTITUTIONAL: As discussed, he came in with hypoxia. He currently does not have any fevers. He has altered mental status. He has underlying dementia. He has also had tachycardia. Review of systems otherwise, weak, mostly nonverbal. CARDIAC: No pressors. GASTROINTESTINAL: No nausea, vomiting, or diarrhea. GENITOURINARY: He has a Espino. PULMONARY: He is short of breath and hypoxic. SKIN: No rash. NEUROLOGIC: No seizures. PAST MEDICAL HISTORY: Patient has a past medical history of hypertension, diabetes, COVID infection. Patient has also encephalopathy, aspiration risk, protein malnutrition. ALLERGIES: Patient has no known drug allergies. No antibiotic allergies. SOCIAL HISTORY: Negative for smoking, alcohol, or drug abuse. FAMILY HISTORY: Noncontributory. MEDICATIONS: Upon reviewing the MAR, patient is on following medications. He is on dexamethasone, remdesivir, Zosyn, Vanco. He is on heparin. He is on albuterol treatments, IV fluids, acetaminophen as needed. Outside medications noted and reconciliated. PHYSICAL EXAMINATION: VITAL SIGNS: Temperature 97.9, pulse rate 86, respiratory 23, blood pressure 129/80, saturation 100% on 3 liters. Heart rate has been as high as 118. GENERAL: Lethargic, weak, mostly nonverbal. Opens his eyes. HEAD AND NECK: Oral exam, no thrush. Eye exam, no icterus. Normocephalic. Neck is supple. No JVD. He is on a breathing mask. HEART: Regular. No gallop or murmur. ABDOMEN: Soft. Positive bowel sounds. Nontender. LUNGS: Bilateral rhonchi. No rales. He has shortness of breath. SKIN: No rash. MUSCULOSKELETAL: No effusion. Legs without cellulitis. PERIPHERAL VASCULAR: No cyanosis or gangrene. GENITOURINARY: He has a Espino. Urine is slightly cloudy. LINE SITES: Without phlebitis. NEUROLOGIC: Generalized weakness, responsive. Mostly nonverbal. LABORATORY DATA: UA had leukocyte esterase negative. White count 6.7, hemoglobin 13.8. Creatinine 1.3. LFTs noted. Cultures are pending. Imaging studies are pending. Chest x-ray per the report had pneumonia. Final report is pending. COVID testing by molecular nasopharyngeal testing is positive. ASSESSMENT AND PLAN: 1. Patient had COVID-19 infection with pneumonia, hypoxia. Patient has possible bacterial pneumonia. Patient has elevated lactic acid, could have sepsis. Continue Zosyn and Vanco currently for bacterial pneumonia. Continue remdesivir and steroids, which is dexamethasone for COVID infection. Continue COVID isolation and respiratory support. Continue remdesivir, dexamethasone, Vanco, and Zosyn for COVID infection and also possible rash, patient's healthcare-acquired pneumonia versus community-acquired pneumonia and bacterial pneumonia. Check cultures, laboratories, chest x-ray. Continue supportive COVID infection. Continue isolation. 2. Case was discussed with Dr. Fagan and pharmacy. 3. Patient has history of hypertension. 4. Diabetes. 5. COVID-19 infection. 6. Dehydration. 7. IV fluids. 8. Malnutrition. 9. Aspiration risk. 10. Elevated D-dimer . 11. Allergies, no known drug allergies. 12. Social history is negative. 13. Family history is noncontributory. 14. MAR was noted. 15. Case was discussed with Dr. Fagan. Thank you, I will follow. Byron Byers M.D. DR: ANJANA JOB#: [id number] CC:
[2020-08-10] MEDS ORDERED: Vancomycin 500mg/D5W 110ml IVPB SCH ×2 (23:00)
[2020-08-11] VITALS: BP 117/63
--- NOTE | 2020-08-11 01:30 | NUR ---
NURSE NOTES: Pt provided partial bed bath. gown and linen changed. Pt tolerated well. Continue plan of care
[2020-08-11 04:00] VITALS: BP 112/60
[2020-08-11] MEDS: Piperacillin/Tazobactam 3.375 GM in NS 110 ML IVPB SCH ×3 (05:21→21:10)
--- NOTE | 2020-08-11 06:00 | NUR ---
NURSE NOTES: Pt asleep in bed. No respiratory distress or discomforts noted. Pt arousable with tactile and verbal stimulation. Continue plan of care
[2020-08-11] MEDS: NovoLOG Insulin Flexpen SUBQ SCH ×4 (06:07→21:12)
[2020-08-11 07:13] LABS: HEMATOCRIT 37.8 % (42.0-52.0); HEMOGLOBIN 12.5 G/DL (14.2-18.0); MEAN CORPUSCULAR VOLUME 98 FL (80-99); PLATELET COUNT 148 K/UL (150-450); RED BLOOD COUNT 3.86 M/UL (4.70-6.10); RED CELL DISTRIBUTION WIDTH 11.3 % (11.6-14.8); WHITE BLOOD COUNT 10.9 K/UL (4.8-10.8)
--- NOTE | 2020-08-11 07:20 | NUR ---
NURSE HAND-OFF REPORT: Important Events on Shift: Stable Patient Status: Stable Diet: NPo Pending Results/Labs:cbc, bmp Pending MD notification:n Latest Vital Signs: Temperature 97.5 , Pulse 92 , B/P 112 /60 , Respiratory Rate 20 , O2 SAT 96 , Nasal Cannula, O2 Flow Rate 3.0 . Vital Sign Comment: n EKG Rhythm: Sinus Rhythm Rhythm change?: N MD Notified?: - MD Response: Latest Jacobsen Fall Score: 75 Fall Risk: High Risk Safety Measures: Call light Within Reach, Bed Alarm Zone 2, Side Rails Side Rails x3, Bed position Low and Locked. Fall Precautions: Yellow Socks Yellow Gown Door Sign Patient Fall Education Report given to MIRTA Toussaint.
--- NOTE | 2020-08-11 07:21 | NUR ---
NURSE NOTES: Pt received from CLEOPATRA RN in stable condition without cardiopulmonary distress. Pt is AAOx1 - SR to classroom monitor - on 3L NC with spO2 95-99%. Pt is currently NPO pending ST eval. F/C noted draining urine. Skin alterations noted. Pt has a RW 20g and LH 22g IVs running D5 1/2NS at 50 cc/hr. Bed in lowest position. Alarm on. Side rails up x 3. Call light within reach. Will continue to monitor.
[2020-08-11 07:31] LABS: ALANINE AMINOTRANSFERASE 68 U/L (12-78); ALBUMIN 2.9 G/DL (3.4-5.0); ALBUMIN/GLOBULIN RATIO 0.8 (1.0-2.7); ALKALINE PHOSPHATASE 54 U/L (46-116); ANION GAP 7 mmol/L (5-15); ASPARTATE AMINO TRANSFERASE 67 U/L (15-37); BILIRUBIN,TOTAL 0.7 MG/DL (0.2-1.0); BLOOD UREA NITROGEN 16 mg/dL (7-18); CALCIUM 8.9 MG/DL (8.5-10.1); CARBON DIOXIDE 26 MMOL/L (21-32); CHLORIDE 110 MMOL/L (98-107); CHOLESTEROL 103 MG/DL (< 200); CREATININE 1.6 MG/DL (0.55-1.30); HDL CHOLESTEROL 58 MG/DL (40-60); POTASSIUM 4.7 MMOL/L (3.5-5.1); SODIUM 143 MMOL/L (136-145); TRIGLYCERIDES 29 MG/DL (30-150)
[2020-08-11 08:00] VITALS: BP 124/76
[2020-08-11] MEDS: D5 1/2NS 1,000 ML IV SCH ×2 (08:22→21:11)
[2020-08-11] MEDS: Pantoprazole Inj IV SCH (08:22)
[2020-08-11] MEDS: dexAMETHasone 10mg/ml Inj IV SCH (08:22)
--- NOTE | 2020-08-11 08:59 | NUR ---
RD ASSESSMENT & RECOMMENDATIONS SEE CARE ACTIVITY FOR COMPLETE ASSESSMENT DAILY ESTIMATED NEEDS: Needs based on Pulmonary 51 25-35 kcals/kg 9528-2834 total kcals 1-1.5 g protein/kg 51-77 g total protein 25-30 mL/kg 1567-8849 total fluid mLs NUTRITION DIAGNOSIS: Altered nutrition related lab values r/t clinical status as evidenced by elev A1C (6.5), elev AST, covid ++. CURRENT DIET: NPO PO DIET RECOMMENDATIONS: Regular diet/ texture per BACTERIOLOGIST SOIL ADDITIONAL RECOMMENDATIONS: 1) Rec Glucerna supplements w/ Regular diet order monitor PO intake and need for added snacks 2) EMR wt: 72.5kg---> now 51kg Verify ht and wt as able 3) BACTERIOLOGIST SOIL eval pending 4) Monitor PO intake, BG and need for carb control diet
--- NOTE | 2020-08-11 11:37 | NUR ---
NURSE NOTES: Unable to collect sputum despite multiple attempts per RT (pt is not producing sputum at this time).
--- NOTE | 2020-08-11 11:43 | Pulmonology Progress Note ---
Subjective Allergies: Coded Allergies: No Known Allergies (Unverified , 08/10/20) Subjective in SDU now on O2 via NC, no resp distress ABG stable this am remains in isolation afebrile, on steroids and Remdesivivr creat uo to 1.6 this am still NPO, on gentle IV hydration BSSE pending lactic acid trending down, still elevated Objective Last 24 Hour Vital Signs Date Time Temp Pulse Resp B/P (MAP) Pulse Ox O2 Delivery O2 Flow Rate FiO2 08/11/20 08:00 97.6 103 18 124/76 (92) 99 08/11/20 08:00 Nasal Cannula 3.0 08/11/20 08:00 3.0 08/11/20 08:00 64 08/11/20 04:00 3.0 08/11/20 04:00 97.5 92 20 112/60 (77) 96 08/11/20 04:00 Nasal Cannula 3.0 Nasal Cannula 3.0 08/11/20 03:33 68 08/11/20 00:00 Nasal Cannula 3.0 Nasal Cannula 3.0 08/11/20 00:00 97.3 81 20 117/63 (81) 96 08/10/20 23:29 64 08/10/20 20:00 Nasal Cannula 3.0 Nasal Cannula 3.0 08/10/20 20:00 98.2 87 20 139/73 (95) 96 08/10/20 20:00 3.0 08/10/20 19:50 93 08/10/20 16:00 77 08/10/20 16:00 98.6 89 20 126/81 (96) 96 08/10/20 16:00 3.0 08/10/20 16:00 Nasal Cannula 3.0 Nasal Cannula 3.0 08/10/20 15:21 Nasal Cannula 3.0 08/10/20 15:00 98.8 81 17 131/76 (94) 96 08/10/20 14:13 86 23 129/80 100 Nasal Cannula 3.0 08/10/20 13:30 89 23 138/79 100 Nasal Cannula 3.0 08/10/20 11:54 95 22 127/55 100 Nasal Cannula 3.0 Intake and Output 08/10/20 08/11/20 19:00 07:00 Intake Total 5396.25 ml 856.25 ml Output Total 2000 ml 400 ml Balance 3396.25 ml 456.25 ml Intake Oral 0 ml IV Total 5396.25 ml 856.25 ml Output Urine Total 2000 ml 400 ml # Bowel Movements 3 Objective General Appearance: cachetic, chronically ill looking, bedridden frail male, confused Lines, tubes and drains: peripheral HEENT: normocephalic, atraumatic, anicteric, on O2 via NC Neck: non-tender, normal inspection, trachea midline Respiratory/Chest: no accessory muscle use; few isolated rhonchi Cardiovascular/Chest: regular rhythm, tele: - ST in loww 100th Abdomen: normal bowel sounds, non tender, soft Extremities: no calf tenderness, normal capillary refill, no edema Neurologic: abnormal gait, confused, poorly responsive, moves all extremities Musculoskeletal: atrophy - BLE Microbiology Date/Time Source Procedure Growth Status 08/10/20 08:41 Nasopharynx SARS-CoV-2 RdRp Gene Assay - Final Complete 08/10/20 08:30 Rectal Mucosa Received Laboratory Tests 08/10/20 21:48: POC Whole Blood Glucose 93 08/11/20 05:38: POC Whole Blood Glucose 94 08/11/20 06:20: White Blood Count 10.9#H, Red Blood Count 3.86L, Hemoglobin 12.5L, Hematocrit 37.8L, Mean Corpuscular Volume 98, Mean Corpuscular Hemoglobin 32.4H, Mean Corpuscular Hemoglobin Concent 33.1, Red Cell Distribution Width 11.3L, Platelet Count 148L, Mean Platelet Volume 8.3, Neutrophils (%) (Auto) , Lymphocytes (%) (Auto) , Monocytes (%) (Auto) , Eosinophils (%) (Auto) , Basophils (%) (Auto) , Differential Total Cells Counted 100, Neutrophils % (Manual) 88H, Lymphocytes % (Manual) 7L, Monocytes % (Manual) 5, Eosinophils % (Manual) 0, Basophils % (Manual) 0, Band Neutrophils 0, Platelet Estimate DecreasedL, Platelet Morphology Normal, Red Blood Cell Morphology Normal, D-Dimer 1.00H, Sodium Level 143, Potassium Level 4.7, Chloride Level 110H, Carbon Dioxide Level 26, Anion Gap 7, Blood Urea Nitrogen 16, Creatinine 1.6H, Estimat Glomerular Filtration Rate 50.2, Glucose Level 116H, Hemoglobin A1c 6.5H, Lactic Acid Level 2.70H, Calcium Level 8.9, Total Bilirubin 0.7, Aspartate Amino Transf (AST/SGOT) 67H, Alanine Aminotransferase (ALT/SGPT) 68, Alkaline Phosphatase 54, Total Protein 6.5, Albumin 2.9L, Globulin 3.6, Albumin/Globulin Ratio 0.8L, Triglycerides Level 29L, Cholesterol Level 103, LDL Cholesterol 35, HDL Cholesterol 58, Cholesterol/HDL Ratio 1.8L, Thyroid Stimulating Hormone (TSH) 0.558 08/11/20 07:40: Arterial Blood pH 7.384, Arterial Blood Partial Pressure CO2 31.9L, Arterial Blood Partial Pressure O2 123.8H, Arterial Blood HCO3 18.6L, Arterial Blood Oxygen Saturation 97.8, Arterial Blood Base Excess -5.5L, Oleksandr Test Positive Current Medications Medications (Trade) Dose Ordered Sig/Torsten Route PRN Reason Start Time Stop Time Status Last Admin Dose Admin Acetaminophen (Tylenol) 650 mg Q4H PRN ORAL Mild Pain (Pain Scale 1-3) 08/10/20 11:45 09/09/20 11:44 Albuterol Sulfate (Proventil MDI) 2 puff Q4H PRN INH Shortness of Breath 08/10/20 13:30 11/08/20 13:29 Barium Sulfate (Varibar Honey) 250 ml NOW PRN RAD 08/10/20 14:45 08/13/20 14:34 Barium Sulfate (Varibar [place]) 240 ml NOW PRN RAD 08/10/20 14:45 08/13/20 14:34 Barium Sulfate (Varibar Pudding) 230 ml NOW PRN RAD 08/10/20 14:45 08/13/20 14:34 Barium Sulfate (Varibar Thin Liquid powder) 148 gm NOW PRN RAD 08/10/20 14:45 08/13/20 14:34 Dexamethasone Sodium Phosphate (Decadron 10mg/ ml Inj) 6 mg DAILY IV 08/11/20 09:00 08/20/20 09:01 08/11/20 08:22 Dextrose (Dextrose 50%) 25 ml Q30M PRN IV Hypoglycemia 08/10/20 11:45 11/08/20 11:44 Dextrose (Dextrose 50%) 50 ml Q30M PRN IV Hypoglycemia 08/10/20 11:45 11/08/20 11:44 Dextrose/Sodium Chloride 1,000 ml @ 50 mls/hr Q20H IV 08/10/20 12:45 09/09/20 12:44 08/11/20 08:22 Insulin Aspart (NovoLOG) BEFORE MEALS AND HS SUBQ 08/10/20 21:00 11/08/20 20:59 Pantoprazole (Protonix) 40 mg DAILY IV 08/11/20 09:00 09/10/20 08:59 08/11/20 08:22 Piperacillin Sod/ Tazobactam Sod 3.375 gm/Sodium Chloride 110 ml @ 27.5 mls/hr EVERY 8 HOURS IVPB 08/10/20 18:00 08/15/20 17:59 08/11/20 05:21 Remdesivir 100 mg/ Sodium Chloride 250 ml @ 250 mls/hr Q24H IV 08/11/20 18:00 08/14/20 18:59 Rivaroxaban (Xarelto) 15 mg QPM ORAL 08/11/20 16:30 11/09/20 16:29 Vancomycin HCl (Vanco pharmacy to dose) 1 ea DAILY PRN MISC Per rx protocol 08/10/20 11:45 09/09/20 11:44 Assessment/Plan Assessment/Plan ASSESSMENT Probably sepsis Recent COVID infection/ never treated Probable PNA Aspiration risk Acute encephalopathy Elevated D dimer JERRY Proteinuria, possible diabetic nephropathy HTN DM Protein calorie malnutrition PLAN OF CARE AC isolation room titrate Fio2 to keep sat above 92%, now down to o2 via NC Albuterol via MDI prn empiric abx, fup with cx steroids and Remdesivvir D#2 ID follows recent COVID 19 at [facility], not treated at that time, closely monitor resp status fup with CXR on Tuesday venous Duplex BLE aspiration precautions DVT prophylaxis closely monitor renal parameters, will consider nephro eval if no improvement UA+ 2 protein, probably underlying diabetic nephropathy / BSSE when more awake IVF, increase rate t0 75 keep NPO for now BP and BS management GI prophylaxis shield runner consult supportive care full code case discussed and evaluated by supervising physician Orly Dick DIRECTOR OF NURSES REGISTRY Aug 11, 2020 11:43
[2020-08-11 12:00] VITALS: BP 131/73
--- NOTE | 2020-08-11 12:42 | Infectious Diseases Prog Note ---
Assessment/Plan Assessment/Plan A) 1) covid-19 infection, pna, hypoxia 2) possible bacterial pna 3) possible sepsis P) 1) vancomycin and zosyn 2) remdesivir and dexamethasone 3) supportive care 4) will f/u 5) monitor cr closely, monitor labs and chest x-ray Subjective Constitutional: Denies: fever HEENT: Reports: congestion - less Respiratory: Reports: shortness of breath - less Cardiovascular: Denies: chest pain Gastrointestinal/Abdominal: Denies: nausea Allergies: Coded Allergies: No Known Allergies (Unverified , 08/10/20) Objective Last 24 Hour Vital Signs Date Time Temp Pulse Resp B/P (MAP) Pulse Ox O2 Delivery O2 Flow Rate FiO2 08/11/20 12:00 60 08/11/20 12:00 97.5 60 20 131/73 (92) 99 08/11/20 12:00 Nasal Cannula 3.0 08/11/20 12:00 3.0 08/11/20 08:00 97.6 103 18 124/76 (92) 99 08/11/20 08:00 Nasal Cannula 3.0 08/11/20 08:00 3.0 08/11/20 08:00 64 08/11/20 04:00 3.0 08/11/20 04:00 97.5 92 20 112/60 (77) 96 08/11/20 04:00 Nasal Cannula 3.0 Nasal Cannula 3.0 08/11/20 03:33 68 08/11/20 00:00 Nasal Cannula 3.0 Nasal Cannula 3.0 08/11/20 00:00 97.3 81 20 117/63 (81) 96 08/10/20 23:29 64 08/10/20 20:00 Nasal Cannula 3.0 Nasal Cannula 3.0 08/10/20 20:00 98.2 87 20 139/73 (95) 96 08/10/20 20:00 3.0 08/10/20 19:50 93 08/10/20 16:00 77 08/10/20 16:00 98.6 89 20 126/81 (96) 96 08/10/20 16:00 3.0 08/10/20 16:00 Nasal Cannula 3.0 Nasal Cannula 3.0 08/10/20 15:21 Nasal Cannula 3.0 08/10/20 15:00 98.8 81 17 131/76 (94) 96 08/10/20 14:13 86 23 129/80 100 Nasal Cannula 3.0 08/10/20 13:30 89 23 138/79 100 Nasal Cannula 3.0 Height (Feet): 6 Height (Inches): 2.00 Weight (Pounds): 160 General Appearance: no acute distress HEENT: normocephalic, atraumatic, anicteric Respiratory/Chest: crackles/rales, rhonchi - bilaterally Cardiovascular: normal rate, regularly irregular Abdomen: normal bowel sounds, soft, non tender Microbiology Date/Time Source Procedure Growth Status 08/10/20 08:41 Nasopharynx SARS-CoV-2 RdRp Gene Assay - Final Complete 08/10/20 08:30 Rectal Mucosa Received Laboratory Tests Test 08/10/20 21:48 08/11/20 05:38 08/11/20 06:20 08/11/20 07:40 POC Whole Blood Glucose 93 MG/DL (74-106) 94 MG/DL (74-106) White Blood Count 10.9 K/UL (4.8-10.8) #H Red Blood Count 3.86 M/UL (4.70-6.10) L Hemoglobin 12.5 G/DL (14.2-18.0) L Hematocrit 37.8 % (42.0-52.0) L Mean Corpuscular Volume 98 FL (80-99) Mean Corpuscular Hemoglobin 32.4 PG (27.0-31.0) H Mean Corpuscular Hemoglobin Concent 33.1 G/DL (32.0-36.0) Red Cell Distribution Width 11.3 % (11.6-14.8) L Platelet Count 148 K/UL (150-450) L Mean Platelet Volume 8.3 FL (6.5-10.1) Neutrophils (%) (Auto) % (45.0-75.0) Lymphocytes (%) (Auto) % (20.0-45.0) Monocytes (%) (Auto) % (1.0-10.0) Eosinophils (%) (Auto) % (0.0-3.0) Basophils (%) (Auto) % (0.0-2.0) Differential Total Cells Counted 100 Neutrophils % (Manual) 88 % (45-75) H Lymphocytes % (Manual) 7 % (20-45) L Monocytes % (Manual) 5 % (1-10) Eosinophils % (Manual) 0 % (0-3) Basophils % (Manual) 0 % (0-2) Band Neutrophils 0 % (0-8) Platelet Estimate Decreased L Platelet Morphology Normal Red Blood Cell Morphology Normal D-Dimer 1.00 mg/L FEU (0.00-0.49) H Sodium Level 143 MMOL/L (136-145) Potassium Level 4.7 MMOL/L (3.5-5.1) Chloride Level 110 MMOL/L (98-107) H Carbon Dioxide Level 26 MMOL/L (21-32) Anion Gap 7 mmol/L (5-15) Blood Urea Nitrogen 16 mg/dL (7-18) Creatinine 1.6 MG/DL (0.55-1.30) H Estimat Glomerular Filtration Rate 50.2 mL/min (>60) Glucose Level 116 MG/DL (74-106) H Hemoglobin A1c 6.5 % (4.3-6.0) H Lactic Acid Level 2.70 mmol/L (0.4-2.0) H Calcium Level 8.9 MG/DL (8.5-10.1) Total Bilirubin 0.7 MG/DL (0.2-1.0) Aspartate Amino Transf (AST/SGOT) 67 U/L (15-37) H Alanine Aminotransferase (ALT/SGPT) 68 U/L (12-78) Alkaline Phosphatase 54 U/L (46-116) Total Protein 6.5 G/DL (6.4-8.2) Albumin 2.9 G/DL (3.4-5.0) L Globulin 3.6 g/dL Albumin/Globulin Ratio 0.8 (1.0-2.7) L Triglycerides Level 29 MG/DL (30-150) L Cholesterol Level 103 MG/DL (< 200) LDL Cholesterol 35 mg/dL (<100) HDL Cholesterol 58 MG/DL (40-60) Cholesterol/HDL Ratio 1.8 (3.3-4.4) L Thyroid Stimulating Hormone (TSH) 0.558 uiU/mL (0.358-3.740) Arterial Blood pH 7.384 (7.350-7.450) Arterial Blood Partial Pressure CO2 31.9 mmHg (35.0-45.0) L Arterial Blood Partial Pressure O2 123.8 mmHg (75.0-100.0) H Arterial Blood HCO3 18.6 mmol/L (22.0-26.0) L Arterial Blood Oxygen Saturation 97.8 % (95-100) Arterial Blood Base Excess -5.5 (-2-2) L Oleksandr Test Positive Current Medications Medications (Trade) Dose Ordered Sig/Torsten Route PRN Reason Start Time Stop Time Status Last Admin Dose Admin Acetaminophen (Tylenol) 650 mg Q4H PRN ORAL Mild Pain (Pain Scale 1-3) 08/10/20 11:45 09/09/20 11:44 Albuterol Sulfate (Proventil MDI) 2 puff Q4H PRN INH Shortness of Breath 08/10/20 13:30 11/08/20 13:29 Barium Sulfate (Varibar Honey) 250 ml NOW PRN RAD 08/10/20 14:45 08/13/20 14:34 Barium Sulfate (Varibar [place]) 240 ml NOW PRN RAD 08/10/20 14:45 08/13/20 14:34 Barium Sulfate (Varibar Pudding) 230 ml NOW PRN RAD 08/10/20 14:45 08/13/20 14:34 Barium Sulfate (Varibar Thin Liquid powder) 148 gm NOW PRN RAD 08/10/20 14:45 08/13/20 14:34 Dexamethasone Sodium Phosphate (Decadron 10mg/ ml Inj) 6 mg DAILY IV 08/11/20 09:00 08/20/20 09:01 08/11/20 08:22 Dextrose (Dextrose 50%) 25 ml Q30M PRN IV Hypoglycemia 08/10/20 11:45 11/08/20 11:44 Dextrose (Dextrose 50%) 50 ml Q30M PRN IV Hypoglycemia 08/10/20 11:45 11/08/20 11:44 Dextrose/Sodium Chloride 1,000 ml @ 75 mls/hr [id number] IV 08/10/20 12:45 09/09/20 12:44 08/11/20 08:22 Insulin Aspart (NovoLOG) BEFORE MEALS AND HS SUBQ 08/10/20 21:00 11/08/20 20:59 Pantoprazole (Protonix) 40 mg DAILY IV 08/11/20 09:00 09/10/20 08:59 08/11/20 08:22 Piperacillin Sod/ Tazobactam Sod 3.375 gm/Sodium Chloride 110 ml @ 27.5 mls/hr EVERY 8 HOURS IVPB 08/10/20 18:00 08/15/20 17:59 08/11/20 05:21 Remdesivir 100 mg/ Sodium Chloride 250 ml @ 250 mls/hr Q24H IV 08/11/20 18:00 08/14/20 18:59 Rivaroxaban (Xarelto) 15 mg QPM ORAL 08/11/20 16:30 11/09/20 16:29 Vancomycin HCl ([facility] pharmacy to dose) 1 ea DAILY PRN MISC Per rx protocol 08/10/20 11:45 09/09/20 11:44 Byron Byers MD Aug 11, 2020 12:42
--- NOTE | 2020-08-11 15:12 | Consultation ---
Consult Note Consult Note I am asked to evaluate the patient at the request of Dr. Melendez for rising serum creatinine and renal failure Patient evaluated, discussed with MIRTA Luis, records reviewed Chief Complaint: Dyspnea/Respdistress HPI: 85-year-old male presents for evaluation of hypoxia. Presents from [facility] for decreased oxygen saturation in the 80s. Placed on nonrebreather improved to 92%. Patient is lethargic and cannot provide any additional history at this time. Accompanying paperwork shows recent admission to [facility] for sepsis secondary to COVID-19. He is full code according to that documentation but no POLST is provided. No further information available from EMS. PMH: Hypertension, diabetes, COVID-19 Allergies: No Known Allergies (Unverified , 08/10/20) COVID-19 Screening Contact w/high risk pt: No Experienced COVID-19 symptoms?: Yes COVID-19 Testing performed EMR TRAINER: Yes COVID-19 Screening: Positive COVID-19 COVID-19 Testing Source: [facility] Vital Signs ER Date Time Temp Pulse Resp B/P (MAP) Pulse Ox O2 Delivery O2 Flow Rate FiO2 08/10/20 08:07 97.9 96 26 158/84 (108) 92 Non-Rebreather 15.0 General Appearance: cachetic, other - chroncially ill looking, bedridden frail male Lines, tubes and drains: peripheral HEENT: normocephalic, atraumatic, anicteric, other - on NRM Neck: non-tender, normal inspection, other - trachea midline Respiratory/Chest: no accessory muscle use, other - few isolated rhonchi Cardiovascular/Chest: regular rhythm, tachycardia - ST low tachy Abdomen: normal bowel sounds, non tender, soft Extremities: no calf tenderness, normal capillary refill, no edema Neurologic: abnormal gait, other - confused, poorly responsive, moves all extremities Musculoskeletal: atrophy - BLE . Assessment/Plan JERRY Sepsis, recent Covid infection, possible pneumonia Aspiration risk Acute encephalopathy Hypertension Diabetes mellitus BMI 20.5/protein calorie malnutrition Suggestion: Patient on antibiotics, remdesivir, steroids Continue to hydrate Monitor blood sugar Monitor electrolytes and renal parameters Urine studies Avoid nephrotoxic's Per orders Eyad Hunt MD Aug 11, 2020 15:12
[2020-08-11 16:00] VITALS: BP 145/82
--- NOTE | 2020-08-11 16:22 | NUR ---
CASE MANAGEMENT:REVIEW [facility]IB[facility]; SOB SI: COVID PNA. SEPSIS 97.8 96 26 158/84 92% ON 15L NON REBREATHER [id number] IS: IV VANCOMYCIN IVF+KCL IV DECADRON IV ZOSYN CXR BLOOD CX : TO TELEMETRY
--- NOTE | 2020-08-11 16:47 | NUR ---
Speech Pathology Note (Bedside Dysphagia Evaluation) Brief Note: Mr. Velasquez is an 85 year old male who was recently hospitalized at [facility] in early August for generalized weakness. He was noted to have poor PO intake 3 days prior to admission to [facility]. He was found to be COVID positive and subsequently transferred to [facility] for further care from 08/07/2020. On 08/10/2020, he was transfer to [facility] ED for COVID 19 c.w hypoxemia and lung infiltrate. CXR is not available at this time. The initial WBC is 6.7k and elevated to 10.9k overnight. His temp is stable between 97.3~97.6 range. Initial renal function is 1.3 similar to previous at [facility] and currently at 1.6. Findings: Mr. Velasquez is alert and oriented to self. He has poor insights. He is appeared to be able to comprehend and follow simple commands. However he frequently refused to perform what I ask for neurological assessment. He stated " what's wrong with you." His speech is intelligible and voice is intact. Asking him PO trial, including water, apple juice, and apple sauce, he refused to take any PO at this time. He stated " Why are you doing that. I do not wanna any in my mouth....what's wrong with these people." His speech is clear and voice is intact. At this time, I respect his wish and wants, I stop PO trials. Impression: Mr. Velasquez is 85 year old male with poor insights c.w encephalopathy. Pt remains at risk of aspiration, however due to refusal to take any PO at this time. Interpretation: 1. Failure to thrive with COVID 19 infection 2. Poor insights Plan: 1. PO diet with pureed and nectar thick liquid -On going RN dysphagia screen , if he fails screen please keep him NPO - COPPER TAPPER/myself will follow through this week Maria Elena Childress
[2020-08-11] MEDS: Xarelto 15mg tab ORAL SCH (17:16)
[2020-08-11] MEDS: Maintenance Dose:Remdesivir 100mg/NS 230ml x 4 Doses IV SCH ×2 (17:17)
--- NOTE | 2020-08-11 19:19 | NUR ---
NURSE HAND-OFF REPORT: Important Events on Shift: moderate pericardial effusion noted w/ 2D echo results today (Dr Hunt made aware - fleet technician also notified primary). Pt cleared by ST for diet (orders place - pt will be 1:1 feeder w/ aspiration precuation). Patient Status: stable Diet: CCHO med - pureed moist - NTL Pending Orders: sputum culture pending (unable to collect - multiple failed attempts per RT today). Venous Duplex pending covid swab results. Pending Results/Labs: n/a Pending MD notification: n/a Latest Vital Signs: Temperature 97.7 , Pulse 83 , B/P 145 /82 , Respiratory Rate 18 , O2 SAT 99 , Nasal Cannula, O2 Flow Rate 4.0 . Vital Sign Comment: stable EKG Rhythm: Sinus Rhythm Rhythm change?: N MD Notified?: n/a MD Response: n/a Latest Jacobsen Fall Score: 75 Fall Risk: High Risk Safety Measures: Call light Within Reach, Bed Alarm Zone 2, Side Rails Side Rails x3, Bed position Low and Locked. Fall Precautions: Yellow Socks Yellow Gown Door Sign Patient Fall Education Report given to MIRTA Omer.
--- NOTE | 2020-08-11 19:20 | NUR ---
NURSE NOTES: Pt received from MIRTA Toussaint alert and oriented x2 with no acute s/s of distress noted on 4L NC, saturating at 94%. cardiac monitor on - Sinus Rhythm. Bed alarm on, bed in lowest position. Call light and belongings within reach. IV site asymptomatic and patent on R wrist 20g, running to D5 1/2 NS at 75 and L hand 22g, saline lock.
[2020-08-11 20:00] VITALS: BP 125/65
[2020-08-12] VITALS: BP 136/61
[2020-08-12] MEDS ORDERED: Vancomycin 500 MG in NS 110 ML IVPB SCH (01:00)
[2020-08-12 04:00] VITALS: BP 129/80
[2020-08-12 05:06] LABS: HEMOGLOBIN 12.2 G/DL (14.2-18.0); MEAN CORPUSCULAR VOLUME 97 FL (80-99); PLATELET COUNT 171 K/UL (150-450); RED BLOOD COUNT 3.73 M/UL (4.70-6.10); RED CELL DISTRIBUTION WIDTH 11.3 % (11.6-14.8); WHITE BLOOD COUNT 12.2 K/UL (4.8-10.8)
[2020-08-12 05:27] LABS: ALANINE AMINOTRANSFERASE 50 U/L (12-78); ALBUMIN 2.6 G/DL (3.4-5.0); ALBUMIN/GLOBULIN RATIO 0.7 (1.0-2.7); ALKALINE PHOSPHATASE 46 U/L (46-116); ANION GAP 8 mmol/L (5-15); ASPARTATE AMINO TRANSFERASE 48 U/L (15-37); BILIRUBIN,TOTAL 0.6 MG/DL (0.2-1.0); BLOOD UREA NITROGEN 22 mg/dL (7-18); CARBON DIOXIDE 24 MMOL/L (21-32); CHLORIDE 107 MMOL/L (98-107); CREATININE 1.3 MG/DL (0.55-1.30); POTASSIUM 3.7 MMOL/L (3.5-5.1); SODIUM 139 MMOL/L (136-145)
[2020-08-12] MEDS: NovoLOG Insulin Flexpen SUBQ SCH ×4 (05:41→21:31)
[2020-08-12] MEDS: Piperacillin/Tazobactam 3.375 GM in NS 110 ML IVPB SCH ×3 (05:41→21:31)
[2020-08-12 05:42] LABS: PHOSPHORUS 3.1 MG/DL (2.5-4.9)
--- NOTE | 2020-08-12 07:22 | NUR ---
NURSE NOTES: Received report from Yahir RN
--- NOTE | 2020-08-12 07:25 | NUR ---
NURSE HAND-OFF REPORT: Important Events on Shift: Pt tolerating 4L NC, saturating at 97% during the shift. Wound care done, bed bath provided. Patient Status: Stable Diet: CCHO medium Pending Orders: n/a Pending Results/Labs: n/a Pending MD notification:n/a Latest Vital Signs: Temperature 97.2 , Pulse 60 , B/P 129 /80 , Respiratory Rate 20 , O2 SAT 100 , Nasal Cannula, O2 Flow Rate 4.0 . Vital Sign Comment: WNL EKG Rhythm: Sinus Rhythm Rhythm change?: N MD Notified?: - MD Response: Latest Jacobsen Fall Score: 75 Fall Risk: High Risk Safety Measures: Call light Within Reach, Bed Alarm Zone 2, Side Rails Side Rails x3, Bed position Low and Locked. Fall Precautions: Yes Yellow Socks Yellow Gown Door Sign Patient Fall Education Report given to Waleska RN and MIRTA Angel.
[2020-08-12 08:00] VITALS: BP 143/79
[2020-08-12] MEDS: Pantoprazole Inj IV SCH (08:30)
[2020-08-12] MEDS: dexAMETHasone 10mg/ml Inj IV SCH (08:30)
--- NOTE | 2020-08-12 09:11 | NUR ---
NURSE NOTES: Pt. in bed, sleeping but arousable. No sign of distress. On O2 at 4LPM via NC. O2 sat at 100%. No grimacing noted. IV at right wrist #20g. and left hand #22g. in placed patent/intact running D5 1/2 NS at 75cc/hr. F/C in placed patent/intact draining yellow colored urine. Bed in low position, locked. Call light within reach. Will cont. to monitor.
--- NOTE | 2020-08-12 09:32 | Nephrology Progress Note ---
Assessment/Plan Problem List: (1) Dehydration (2) JERRY (acute kidney injury) (3) Sepsis (4) COVID-19 (5) Encephalopathy Assessment JERRY- Sepsis, recent Covid infection, possible pneumonia Aspiration risk Acute encephalopathy Hypertension Diabetes mellitus BMI 20.5/protein calorie malnutrition Plan Patient on antibiotics, remdesivir, steroids Continue to hydrate Monitor blood sugar Monitor electrolytes and renal parameters Urine studies Avoid nephrotoxic's Per orders Subjective ROS Limited/Unobtainable: Yes Objective Objective Last 24 Hour Vital Signs Date Time Temp Pulse Resp B/P (MAP) Pulse Ox O2 Delivery O2 Flow Rate FiO2 08/12/20 08:00 97.5 79 20 143/79 (100) 92 08/12/20 04:00 Nasal Cannula 4.0 08/12/20 04:00 4.0 08/12/20 04:00 86 08/12/20 04:00 97.2 60 20 129/80 (96) 100 08/12/20 00:00 77 08/12/20 00:00 Nasal Cannula 4.0 08/12/20 00:00 97.5 64 18 136/61 (86) 100 08/11/20 20:00 Nasal Cannula 4.0 08/11/20 20:00 80 08/11/20 20:00 97.8 71 18 125/65 (85) 97 08/11/20 20:00 4.0 08/11/20 16:00 Nasal Cannula 4.0 08/11/20 16:00 67 08/11/20 16:00 97.7 83 18 145/82 (103) 99 08/11/20 16:00 4.0 08/11/20 12:00 60 08/11/20 12:00 97.5 60 20 131/73 (92) 99 08/11/20 12:00 Nasal Cannula 3.0 08/11/20 12:00 3.0 Intake and Output 08/11/20 08/12/20 19:00 07:00 Intake Total 1126.22689 ml 1707.0 ml Output Total 200 ml 300 ml Balance 926.18077 ml 1407.0 ml IV Total 1126.80952 ml 1707.0 ml Output Urine Total 200 ml 300 ml Current Medications Medications (Trade) Dose Ordered Sig/Torsten Route PRN Reason Start Time Stop Time Status Last Admin Dose Admin Acetaminophen (Tylenol) 650 mg Q4H PRN ORAL Mild Pain (Pain Scale 1-3) 08/10/20 11:45 09/09/20 11:44 Albuterol Sulfate (Proventil MDI) 2 puff Q4H PRN INH Shortness of Breath 08/10/20 13:30 11/08/20 13:29 Barium Sulfate (Varibar Honey) 250 ml NOW PRN RAD 08/10/20 14:45 08/13/20 14:34 Barium Sulfate (Varibar [place]) 240 ml NOW PRN RAD 08/10/20 14:45 08/13/20 14:34 Barium Sulfate (Varibar Pudding) 230 ml NOW PRN RAD 08/10/20 14:45 08/13/20 14:34 Barium Sulfate (Varibar Thin Liquid powder) 148 gm NOW PRN RAD 08/10/20 14:45 08/13/20 14:34 Dexamethasone Sodium Phosphate (Decadron 10mg/ ml Inj) 6 mg DAILY IV 08/11/20 09:00 08/20/20 09:01 08/12/20 08:30 Dextrose (Dextrose 50%) 25 ml Q30M PRN IV Hypoglycemia 08/10/20 11:45 11/08/20 11:44 Dextrose (Dextrose 50%) 50 ml Q30M PRN IV Hypoglycemia 08/10/20 11:45 11/08/20 11:44 Dextrose/Sodium Chloride 1,000 ml @ 75 mls/hr [id number] IV 08/10/20 12:45 09/09/20 12:44 08/11/20 21:11 Insulin Aspart (NovoLOG) BEFORE MEALS AND HS SUBQ 08/10/20 21:00 11/08/20 20:59 08/11/20 21:12 Magnesium Sulfate 100 ml @ 100 mls/hr Q1H IVPB 08/12/20 08:00 08/12/20 09:59 08/12/20 08:29 Pantoprazole (Protonix) 40 mg DAILY IV 08/11/20 09:00 09/10/20 08:59 08/12/20 08:30 Piperacillin Sod/ Tazobactam Sod 3.375 gm/Sodium Chloride 110 ml @ 27.5 mls/hr EVERY 8 HOURS IVPB 08/10/20 18:00 08/15/20 17:59 08/12/20 05:41 Remdesivir 100 mg/ Sodium Chloride 250 ml @ 250 mls/hr Q24H IV 08/11/20 18:00 08/14/20 18:59 08/11/20 17:17 Rivaroxaban (Xarelto) 15 mg QPM ORAL 08/11/20 16:30 11/09/20 16:29 08/11/20 17:16 Vancomycin HCl (Vanco pharmacy to dose) 1 ea DAILY PRN MISC Per rx protocol 08/10/20 11:45 09/09/20 11:44 Laboratory Tests 08/11/20 18:00: Urine Random Sodium 72 08/11/20 19:56: POC Whole Blood Glucose 151H 08/11/20 22:10: Random Vancomycin Level 6.7 08/12/20 04:00: Urine Eosinophils None seen 08/12/20 04:10: White Blood Count 12.2H, Red Blood Count 3.73L, Hemoglobin 12.2L, Hematocrit 36.0L, Mean Corpuscular Volume 97, Mean Corpuscular Hemoglobin 32.7H, Mean Corpuscular Hemoglobin Concent 33.8, Red Cell Distribution Width 11.3L, Platelet Count 171, Mean Platelet Volume 7.9, Neutrophils (%) (Auto) , Lymphocytes (%) (Auto) , Monocytes (%) (Auto) , Eosinophils (%) (Auto) , Basophils (%) (Auto) , Differential Total Cells Counted 100, Neutrophils % (Manual) 94H, Lymphocytes % (Manual) 3L, Monocytes % (Manual) 3, Eosinophils % (Manual) 0, Basophils % (Manual) 0, Band Neutrophils 0, Platelet Estimate Adequate, Platelet Morphology Normal, Red Blood Cell Morphology Normal, Sodium Level 139, Potassium Level 3.7, Chloride Level 107, Carbon Dioxide Level 24, Anion Gap 8, Blood Urea Nitrogen 22H, Creatinine 1.3, Estimat Glomerular Filtration Rate > 60, Glucose Level 125H , Uric Acid 2.9, Calcium Level 9.0, Phosphorus Level 3.1, Magnesium Level 1.7L, Total Bilirubin 0.6, Gamma Glutamyl Transpeptidase 28, Aspartate Amino Transf (AST/SGOT) 48H, Alanine Aminotransferase (ALT/SGPT) 50, Alkaline Phosphatase 46, Ammonia 21, Lactate Dehydrogenase 247H, C-Reactive Protein, Quantitative 6.0H, Pro-B-Type Natriuretic Peptide 735H, Total Protein 6.1L, Albumin 2.6L, Globulin 3.5, Albumin/Globulin Ratio 0.7L 08/12/20 05:32: POC Whole Blood Glucose 107H Height (Feet): 6 Height (Inches): 2.00 Weight (Pounds): 160 EENT: other - On nasal cannula Cardiovascular: normal rate Respiratory/Chest: decreased breath sounds Abdomen: distended Eyad Hunt MD Aug 12, 2020 09:32
--- NOTE | 2020-08-12 10:59 | Pulmonology Progress Note ---
Subjective ROS Limited/Unobtainable: Yes Constitutional: Denies: fever Gastrointestinal/Abdominal: Denies: nausea Allergies: Coded Allergies: No Known Allergies (Unverified , 08/10/20) Subjective in SDU now on O2 via NC, no resp distress ABG stable remains in isolation mild leukocytosis, likely due to steroids , no fevers on steroids and Remdesivivr creat down to 1.3 this am BSSE completed , started on diet as per ST recs Objective Last 24 Hour Vital Signs Date Time Temp Pulse Resp B/P (MAP) Pulse Ox O2 Delivery O2 Flow Rate FiO2 08/12/20 08:00 97.5 79 20 143/79 (100) 92 08/12/20 04:00 Nasal Cannula 4.0 08/12/20 04:00 4.0 08/12/20 04:00 86 08/12/20 04:00 97.2 60 20 129/80 (96) 100 08/12/20 00:00 77 08/12/20 00:00 Nasal Cannula 4.0 08/12/20 00:00 97.5 64 18 136/61 (86) 100 08/11/20 20:00 Nasal Cannula 4.0 08/11/20 20:00 80 08/11/20 20:00 97.8 71 18 125/65 (85) 97 08/11/20 20:00 4.0 08/11/20 16:00 Nasal Cannula 4.0 08/11/20 16:00 67 08/11/20 16:00 97.7 83 18 145/82 (103) 99 08/11/20 16:00 4.0 08/11/20 12:00 60 08/11/20 12:00 97.5 60 20 131/73 (92) 99 08/11/20 12:00 Nasal Cannula 3.0 08/11/20 12:00 3.0 Intake and Output 08/11/20 08/12/20 19:00 07:00 Intake Total 1126.96594 ml 1707.0 ml Output Total 200 ml 300 ml Balance 926.50064 ml 1407.0 ml IV Total 1126.54543 ml 1707.0 ml Output Urine Total 200 ml 300 ml Objective General Appearance: cachetic, chronically ill looking, bedridden frail male, confused Lines, tubes and drains: peripheral HEENT: normocephalic, atraumatic, anicteric, on O2 via NC Neck: non-tender, normal inspection, trachea midline Respiratory/Chest: no accessory muscle use; few isolated rhonchi Cardiovascular/Chest: regular rhythm, tele-SR Abdomen: normal bowel sounds, non tender, soft Extremities: no calf tenderness, normal capillary refill, no edema Neurologic: abnormal gait, confused, poorly responsive, moves all extremities Musculoskeletal: atrophy - BLE Microbiology Date/Time Source Procedure Growth Status 08/10/20 08:41 Nasopharynx SARS-CoV-2 RdRp Gene Assay - Final Complete 08/10/20 08:30 Rectal Mucosa VRE Culture - Final NO VANCOMYCIN RESISTANT ENTEROCOCCUS ... Complete Laboratory Tests 08/11/20 18:00: Urine Random Sodium 72 08/11/20 19:56: POC Whole Blood Glucose 151H 08/11/20 22:10: Random Vancomycin Level 6.7 08/12/20 04:00: Urine Eosinophils None seen 08/12/20 04:10: White Blood Count 12.2H, Red Blood Count 3.73L, Hemoglobin 12.2L, Hematocrit 36.0L, Mean Corpuscular Volume 97, Mean Corpuscular Hemoglobin 32.7H, Mean Corpuscular Hemoglobin Concent 33.8, Red Cell Distribution Width 11.3L, Platelet Count 171, Mean Platelet Volume 7.9, Neutrophils (%) (Auto) , Lymphocytes (%) (Auto) , Monocytes (%) (Auto) , Eosinophils (%) (Auto) , Basophils (%) (Auto) , Differential Total Cells Counted 100, Neutrophils % (Manual) 94H, Lymphocytes % (Manual) 3L, Monocytes % (Manual) 3, Eosinophils % (Manual) 0, Basophils % (Manual) 0, Band Neutrophils 0, Platelet Estimate Adequate, Platelet Morphology Normal, Red Blood Cell Morphology Normal, Sodium Level 139, Potassium Level 3.7, Chloride Level 107, Carbon Dioxide Level 24, Anion Gap 8, Blood Urea Nitrogen 22H, Creatinine 1.3, Estimat Glomerular Filtration Rate > 60, Glucose Level 125H , Uric Acid 2.9, Calcium Level 9.0, Phosphorus Level 3.1, Magnesium Level 1.7L, Total Bilirubin 0.6, Gamma Glutamyl Transpeptidase 28, Aspartate Amino Transf (AST/SGOT) 48H, Alanine Aminotransferase (ALT/SGPT) 50, Alkaline Phosphatase 46, Ammonia 21, Lactate Dehydrogenase 247H, C-Reactive Protein, Quantitative 6.0H, Pro-B-Type Natriuretic Peptide 735H, Total Protein 6.1L, Albumin 2.6L, Globulin 3.5, Albumin/Globulin Ratio 0.7L 08/12/20 05:32: POC Whole Blood Glucose 107H Current Medications Medications (Trade) Dose Ordered Sig/Torsten Route PRN Reason Start Time Stop Time Status Last Admin Dose Admin Acetaminophen (Tylenol) 650 mg Q4H PRN ORAL Mild Pain (Pain Scale 1-3) 08/10/20 11:45 09/09/20 11:44 Albuterol Sulfate (Proventil MDI) 2 puff Q4H PRN INH Shortness of Breath 08/10/20 13:30 11/08/20 13:29 Barium Sulfate (Varibar Honey) 250 ml NOW PRN MC RAD 08/10/20 14:45 08/13/20 14:34 Barium Sulfate (Varibar [place]) 240 ml NOW PRN RAD 08/10/20 14:45 08/13/20 14:34 Barium Sulfate (Varibar Pudding) 230 ml NOW PRN MC RAD 08/10/20 14:45 08/13/20 14:34 Barium Sulfate (Varibar Thin Liquid powder) 148 gm NOW PRN MC RAD 08/10/20 14:45 08/13/20 14:34 Dexamethasone Sodium Phosphate (Decadron 10mg/ ml Inj) 6 mg DAILY IV 08/11/20 09:00 08/20/20 09:01 08/12/20 08:30 Dextrose (Dextrose 50%) 25 ml Q30M PRN IV Hypoglycemia 08/10/20 11:45 11/08/20 11:44 Dextrose (Dextrose 50%) 50 ml Q30M PRN IV Hypoglycemia 08/10/20 11:45 11/08/20 11:44 Dextrose/Sodium Chloride 1,000 ml @ 75 mls/hr [id number] IV 08/10/20 12:45 09/09/20 12:44 08/11/20 21:11 Insulin Aspart (NovoLOG) BEFORE MEALS AND HS SUBQ 08/10/20 21:00 11/08/20 20:59 08/11/20 21:12 Pantoprazole (Protonix) 40 mg DAILY IV 08/11/20 09:00 09/10/20 08:59 08/12/20 08:30 Piperacillin Sod/ Tazobactam Sod 3.375 gm/Sodium Chloride 110 ml @ 27.5 mls/hr EVERY 8 HOURS IVPB 08/10/20 18:00 08/15/20 17:59 08/12/20 05:41 Remdesivir 100 mg/ Sodium Chloride 250 ml @ 250 mls/hr Q24H IV 08/11/20 18:00 08/14/20 18:59 08/11/20 17:17 Rivaroxaban (Xarelto) 15 mg QPM ORAL 08/11/20 16:30 11/09/20 16:29 08/11/20 17:16 Vancomycin HCl (Vanco pharmacy to dose) 1 ea DAILY PRN MISC Per rx protocol 08/10/20 11:45 09/09/20 11:44 Assessment/Plan Assessment/Plan ASSESSMENT Probably sepsis Recent COVID infection/ never treated Probable PNA Aspiration risk Acute encephalopathy Elevated D dimer JERRY Proteinuria, possible diabetic nephropathy HTN DM Protein calorie malnutrition PLAN OF CARE AC isolation room titrate Fio2 to keep sat above 92%, now down to 2 via NC Albuterol via MDI prn empiric abx, fup with cx steroids and Remdesivvir D#3 ID follows recent COVID 19 at [facility], not treated at that time, closely monitor resp status fup with CXR venous Duplex BLE aspiration precautions DVT prophylaxis closely monitor renal parameters, nephro eval appreciated continue hydration creat down to 1.3 BSSE completed diet texture as per ST recs aspiration precautions IVF, BP and BS management GI prophylaxis protein suppl as per RD recs supportive care full code case discussed and evaluated by supervising physician Orly Dick NP Aug 12, 2020 10:59
--- NOTE | 2020-08-12 11:00 | NUR ---
NURSE NOTES: Seen by Kapil FRAUSTO and updated her that pt. had poor p.o intake at breakfast. Ordered some labs for tomorrow.
--- NOTE | 2020-08-12 11:22 | NUR ---
RADIOLOGY DEPT., CHEST X-RAY DONE.-P.DYE
[2020-08-12 12:00] VITALS: BP 151/83
[2020-08-12] MEDS: D5 1/2NS 1,000 ML IV SCH (12:44)
--- NOTE | 2020-08-12 13:51 | NUR ---
NETWORK/TELECOM ENGINEERPLUNKET NURSE SI: RESP DISTRESS, COVID 19 LEUKOCYTOSIS T. 97.5 HR 58 RR 18 B/P 151/83 4L NC O2 SAT @ 98% WBC 12.2 BUN 22 MG 1.7 IS: RENDESIVIR IV DECADRON IV ZOSYN IV IVF D5NS @ 75ML/HR VANCO IV X 1 MG IV X 1 STEP DOWN STATUS
--- NOTE | 2020-08-12 13:56 | NUR ---
SHIPYARD PAINTING SUPERVISOR NOTES CLINICALS REVIEWED AND FAXED.
--- NOTE | 2020-08-12 14:08 | Diagnostic Imaging Report ---
Indication: Shortness of breath Technique: One view of the chest Comparison: 10/10/2019 Findings: Lungs and pleural spaces are clear. Heart size is normal. No significant change Impression: No acute process
[2020-08-12 16:00] VITALS: BP 141/75
--- NOTE | 2020-08-12 16:42 | NUR ---
NURSE NOTES:Skin/Wound assessment Sacral pressure ulcer stage 1 nonblanchable redness 4.0x2.5x0.0 Calazime and Optifoam applied for protection.Bilateral heels skin intact Optifoam applied and pillow to offload.
[2020-08-12] MEDS: Xarelto 15mg tab ORAL SCH (17:03)
[2020-08-12] MEDS: Maintenance Dose:Remdesivir 100mg/NS 230ml x 4 Doses IV SCH ×2 (18:02)
--- NOTE | 2020-08-12 18:23 | Infectious Diseases Prog Note ---
Assessment/Plan Assessment/Plan ASSESSMENT AND PLAN: 1. covid-19 infection, hypoxia, ? pna, chest x-ray negative, ? sepsis, leukocytosis likely secondary to steroids - zosyn -day # 3 - dexamethasone - day # 3 - remdesivir - day # 3 - monitor labs - f/u on final cultures 2. continue treatment per primary and consultants 3. Patient has history of hypertension. 4. Diabetes. 5. COVID-19 infection. 6. Dehydration. 7. IV fluids. 8. Malnutrition. 9. Aspiration risk. 10. Elevated D-dimer 11. Allergies, no known drug allergies. 12. Social history is negative. 13. Family history is noncontributory. 14. MAR was noted. 15. Case was discussed with Dr. Fagan. Subjective Constitutional: Reports: fatigue, other - more alert ; Denies: fever HEENT: Reports: congestion - less Respiratory: Reports: shortness of breath - less Cardiovascular: Denies: chest pain Gastrointestinal/Abdominal: Denies: nausea, vomiting, diarrhea Genitourinary: Reports: other - no cardenas ; Denies: dysuria Neurologic: Denies: headache Psychiatric: Denies: depression Skin: Denies: rash Endocrine: Denies: feels warm Musculoskeletal: Denies: pain, stiffness Allergies: Coded Allergies: No Known Allergies (Unverified , 08/10/20) Objective Last 24 Hour Vital Signs Date Time Temp Pulse Resp B/P (MAP) Pulse Ox O2 Delivery O2 Flow Rate FiO2 08/12/20 16:18 69 08/12/20 16:00 97.2 74 18 141/75 (97) 100 08/12/20 16:00 Nasal Cannula 4.0 08/12/20 16:00 4.0 08/12/20 12:44 58 08/12/20 12:00 Nasal Cannula 4.0 08/12/20 12:00 4.0 08/12/20 12:00 97.5 62 18 151/83 (105) 100 08/12/20 11:05 58 08/12/20 08:00 Nasal Cannula 4.0 08/12/20 08:00 4.0 08/12/20 08:00 97.5 79 20 143/79 (100) 92 08/12/20 04:00 Nasal Cannula 4.0 08/12/20 04:00 4.0 08/12/20 04:00 86 08/12/20 04:00 97.2 60 20 129/80 (96) 100 08/12/20 00:00 77 08/12/20 00:00 Nasal Cannula 4.0 08/12/20 00:00 97.5 64 18 136/61 (86) 100 08/11/20 20:00 Nasal Cannula 4.0 08/11/20 20:00 80 08/11/20 20:00 97.8 71 18 125/65 (85) 97 08/11/20 20:00 4.0 Height (Feet): 6 Height (Inches): 2.00 Weight (Pounds): 160 General Appearance: no acute distress, other - nad HEENT: normocephalic, atraumatic, anicteric, mucous membranes moist Respiratory/Chest: crackles/rales, rhonchi - bilaterally Cardiovascular: normal rate, regular rhythm, no gallop/murmur, no JVD Abdomen: normal bowel sounds, soft, non tender, no organomegaly, non distended Genitourinary: other - + cardenas Extremities: no cyanosis Skin: no rash Neurologic/Psychiatric: home health rn II-XII grossly normal, alert, responsive, other - nad Lymphatic: no neck adenopathy Musculoskeletal: no effusion Microbiology Date/Time Source Procedure Growth Status 08/10/20 08:41 Nasopharynx SARS-CoV-2 RdRp Gene Assay - Final Complete 08/10/20 08:30 Rectal Mucosa VRE Culture - Final NO VANCOMYCIN RESISTANT ENTEROCOCCUS ... Complete 08/10/20 08:30 Nasal Nares MRSA Culture - Final NO METHICILLIN RESISTANT STAPH AUREUS... Complete Laboratory Tests Test 08/11/20 19:56 08/11/20 22:10 08/12/20 04:00 08/12/20 04:10 POC Whole Blood Glucose 151 MG/DL (74-106) H Random Vancomycin Level 6.7 ug/mL Urine Eosinophils None seen (NONE SEEN) White Blood Count 12.2 K/UL (4.8-10.8) H Red Blood Count 3.73 M/UL (4.70-6.10) L Hemoglobin 12.2 G/DL (14.2-18.0) L Hematocrit 36.0 % (42.0-52.0) L Mean Corpuscular Volume 97 FL (80-99) Mean Corpuscular Hemoglobin 32.7 PG (27.0-31.0) H Mean Corpuscular Hemoglobin Concent 33.8 G/DL (32.0-36.0) Red Cell Distribution Width 11.3 % (11.6-14.8) L Platelet Count 171 K/UL (150-450) Mean Platelet Volume 7.9 FL (6.5-10.1) Neutrophils (%) (Auto) % (45.0-75.0) Lymphocytes (%) (Auto) % (20.0-45.0) Monocytes (%) (Auto) % (1.0-10.0) Eosinophils (%) (Auto) % (0.0-3.0) Basophils (%) (Auto) % (0.0-2.0) Differential Total Cells Counted 100 Neutrophils % (Manual) 94 % (45-75) H Lymphocytes % (Manual) 3 % (20-45) L Monocytes % (Manual) 3 % (1-10) Eosinophils % (Manual) 0 % (0-3) Basophils % (Manual) 0 % (0-2) Band Neutrophils 0 % (0-8) Platelet Estimate Adequate Platelet Morphology Normal Red Blood Cell Morphology Normal Sodium Level 139 MMOL/L (136-145) Potassium Level 3.7 MMOL/L (3.5-5.1) Chloride Level 107 MMOL/L (98-107) Carbon Dioxide Level 24 MMOL/L (21-32) Anion Gap 8 mmol/L (5-15) Blood Urea Nitrogen 22 mg/dL (7-18) H Creatinine 1.3 MG/DL (0.55-1.30) Estimat Glomerular Filtration Rate > 60 mL/min (>60) Glucose Level 125 MG/DL (74-106) H Uric Acid 2.9 MG/DL (2.6-7.2) Calcium Level 9.0 MG/DL (8.5-10.1) Phosphorus Level 3.1 MG/DL (2.5-4.9) Magnesium Level 1.7 MG/DL (1.8-2.4) L Total Bilirubin 0.6 MG/DL (0.2-1.0) Gamma Glutamyl Transpeptidase 28 U/L (5-85) Aspartate Amino Transf (AST/SGOT) 48 U/L (15-37) H Alanine Aminotransferase (ALT/SGPT) 50 U/L (12-78) Alkaline Phosphatase 46 U/L (46-116) Ammonia 21 umol/L (11-32) Lactate Dehydrogenase 247 U/L (81-234) H C-Reactive Protein, Quantitative 6.0 mg/dL (0.00-0.90) H Pro-B-Type Natriuretic Peptide 735 pg/mL (0-125) H Total Protein 6.1 G/DL (6.4-8.2) L Albumin 2.6 G/DL (3.4-5.0) L Globulin 3.5 g/dL Albumin/Globulin Ratio 0.7 (1.0-2.7) L Test 08/12/20 05:32 08/12/20 12:07 08/12/20 17:20 POC Whole Blood Glucose 107 MG/DL (74-106) H 120 MG/DL (74-106) H 135 MG/DL (74-106) H Current Medications Medications (Trade) Dose Ordered Sig/Torsten Route PRN Reason Start Time Stop Time Status Last Admin Dose Admin Acetaminophen (Tylenol) 650 mg Q4H PRN ORAL Mild Pain (Pain Scale 1-3) 08/10/20 11:45 09/09/20 11:44 Albuterol Sulfate (Proventil MDI) 2 puff Q4H PRN INH Shortness of Breath 08/10/20 13:30 11/08/20 13:29 Barium Sulfate (Varibar Honey) 250 ml NOW PRN MC RAD 08/10/20 14:45 08/13/20 14:34 Barium Sulfate (Varibar [place]) 240 ml NOW PRN MC RAD 08/10/20 14:45 08/13/20 14:34 Barium Sulfate (Varibar Pudding) 230 ml NOW PRN MC RAD 08/10/20 14:45 08/13/20 14:34 Barium Sulfate (Varibar Thin Liquid powder) 148 gm NOW PRN MC RAD 08/10/20 14:45 08/13/20 14:34 Dexamethasone Sodium Phosphate (Decadron 10mg/ ml Inj) 6 mg DAILY IV 08/11/20 09:00 08/20/20 09:01 08/12/20 08:30 Dextrose (Dextrose 50%) 25 ml Q30M PRN IV Hypoglycemia 08/10/20 11:45 11/08/20 11:44 Dextrose (Dextrose 50%) 50 ml Q30M PRN IV Hypoglycemia 08/10/20 11:45 11/08/20 11:44 Dextrose/Sodium Chloride 1,000 ml @ 75 mls/hr [id number] IV 08/10/20 12:45 09/09/20 12:44 08/12/20 12:44 Insulin Aspart (NovoLOG) BEFORE MEALS AND HS SUBQ 08/10/20 21:00 11/08/20 20:59 08/11/20 21:12 Pantoprazole (Protonix) 40 mg DAILY IV 08/11/20 09:00 09/10/20 08:59 08/12/20 08:30 Piperacillin Sod/ Tazobactam Sod 3.375 gm/Sodium Chloride 110 ml @ 27.5 mls/hr EVERY 8 HOURS IVPB 08/10/20 18:00 08/15/20 17:59 08/12/20 14:12 Remdesivir 100 mg/ Sodium Chloride 250 ml @ 250 mls/hr Q24H IV 08/11/20 18:00 08/14/20 18:59 08/12/20 18:02 Rivaroxaban (Xarelto) 15 mg QPM ORAL 08/11/20 16:30 11/09/20 16:29 08/12/20 17:03 Byron Byers MD Aug 12, 2020 18:23
--- NOTE | 2020-08-12 19:24 | Cardiology Report ---
APPROVED REPORT EKG Measurement Heart [id number] [id number] <Conclusion> Sinus tachycardia Nonspecific ST and T wave abnormality Abnormal ECG
--- NOTE | 2020-08-12 19:26 | NUR ---
NURSE HAND-OFF REPORT: Important Events on Shift: continue on remdesivir. no a/r noted. Patient Status: Diet: Pending Orders: Pending Results/Labs: Pending MD notification: Latest Vital Signs: Temperature 97.2 , Pulse 69 , B/P 141 /75 , Respiratory Rate 18 , O2 SAT 100 , Nasal Cannula, O2 Flow Rate 4.0 . Vital Sign Comment: EKG Rhythm: Sinus Rhythm Rhythm change?: N MD Notified?: - MD Response: Latest Jacobsen Fall Score: 75 Fall Risk: High Risk Safety Measures: Call light Within Reach, Bed Alarm Zone 2, Side Rails Side Rails x3, Bed position Low and Locked. Fall Precautions: Yellow Socks Yellow Gown Door Sign Patient Fall Education Report given to .
--- NOTE | 2020-08-12 19:54 | NUR ---
NURSE NOTES: Report received from MIRTA Galeano. Observed pt lying in the bed, sleeping, arousable. SR on surveillance system monitor. On 3L NC, no sob noted. Pt resting in the bed calmly. IV on R AC 20G, intact. L UA 20G, intact, running 1/2 NS at 75cc/hr. Bed in the lowest position. Side rails up x3. Will continue to monitor.
--- NOTE | 2020-08-12 19:55 | NUR ---
NURSE NOTES: Pt family member, granddaughter, Denies, requested for transfer to [facility]. Will f/u with case sealer in the morning.
[2020-08-12 20:00] VITALS: BP 132/74
--- NOTE | 2020-08-12 23:18 | NUR ---
NURSE NOTES: No acute distress noted at this time. SR noted. On 4L, no sob, tolerating. Apple juice given, no coughing w/ swallowing noted. will continue to monitor.
[2020-08-13] VITALS: BP 141/73
--- NOTE | 2020-08-13 | NUR ---
NURSE NOTES: Pt pooped using bed lee, stool is brown to black, formed, soft, and small. Pt is cleaned, reposition and gown is changed. Will continue to monitor pt. Addendum: 08/14/20 at 0216 by Galilea Zafar RN RN wrong date 1999
[2020-08-13] MEDS: D5 1/2NS 1,000 ML IV SCH ×2 (01:43→15:18)
[2020-08-13 04:00] VITALS: BP 144/87
[2020-08-13 05:14] LABS: HEMATOCRIT 41.4 % (42.0-52.0); HEMOGLOBIN 13.5 G/DL (14.2-18.0); MEAN CORPUSCULAR VOLUME 99 FL (80-99); PLATELET COUNT 212 K/UL (150-450); RED BLOOD COUNT 4.19 M/UL (4.70-6.10); RED CELL DISTRIBUTION WIDTH 11.4 % (11.6-14.8); WHITE BLOOD COUNT 12.1 K/UL (4.8-10.8)
[2020-08-13] MEDS: Piperacillin/Tazobactam 3.375 GM in NS 110 ML IVPB SCH ×3 (05:41→21:20)
[2020-08-13] MEDS: NovoLOG Insulin Flexpen SUBQ SCH ×4 (06:30→21:00)
[2020-08-13 06:57] LABS: ALANINE AMINOTRANSFERASE 53 U/L (12-78); ALBUMIN 2.8 G/DL (3.4-5.0); ALBUMIN/GLOBULIN RATIO 0.8 (1.0-2.7); ALKALINE PHOSPHATASE 45 U/L (46-116); ANION GAP 7 mmol/L (5-15); ASPARTATE AMINO TRANSFERASE 37 U/L (15-37); BILIRUBIN,TOTAL 0.5 MG/DL (0.2-1.0); BLOOD UREA NITROGEN 21 mg/dL (7-18); CALCIUM 9.1 MG/DL (8.5-10.1); CARBON DIOXIDE 26 MMOL/L (21-32); CHLORIDE 107 MMOL/L (98-107); CREATININE 1.3 MG/DL (0.55-1.30); POTASSIUM 4.3 MMOL/L (3.5-5.1); SODIUM 140 MMOL/L (136-145)
--- NOTE | 2020-08-13 07:16 | NUR ---
NURSE HAND-OFF REPORT: Important Events on Shift: Patient Status: No acute distress noted at this time. Diet: CCHO, pureed nectar thicken Pending Orders: n Pending Results/Labs:n Pending MD notification: n Latest Vital Signs: Temperature 97.7 , Pulse 74 , B/P 144 /87 , Respiratory Rate 20 , O2 SAT 98 , Nasal Cannula, O2 Flow Rate 4.0 . Vital Sign Comment: [] EKG Rhythm: Sinus Rhythm Rhythm change?: N MD Notified?: - MD Response: Latest Jacobsen Fall Score: 75 Fall Risk: High Risk Safety Measures: Call light Within Reach, Bed Alarm Zone 2, Side Rails Side Rails x3, Bed position Low and Locked. Fall Precautions: Yellow Socks Yellow Gown Door Sign Patient Fall Education Report given to MIRTA Gonzalez.
--- NOTE | 2020-08-13 07:30 | NUR ---
NURSE NOTES: Patient stable AOx1, alert to self. Cardiac sounds benign. RR even an unlabored on 5L NC. BL lung diminished with shallow respirations. Bowel sounds hypoactive. No BM at this time. Espino draining well to gravity, yellow urine. Radial and pedal pulses weak. Trace edema to BLE. Fluids and zosyn infusing through peripheral IV. Side rails upx2, call light within reach, bed low and locked. Labs drawn. Waiting for blood bank for transfusion.
[2020-08-13 08:00] VITALS: BP 135/74
--- NOTE | 2020-08-13 08:29 | Cardiology Report ---
APPROVED REPORT EXAM: Two-dimensional and M-mode echocardiogram with Doppler and color Doppler. INDICATION SOB M-Mode DIMENSIONS IVSd0.8 (0.7-1.1cm)Left Atrium (MM)2.1 (1.6-4.0cm) LVDd3.0 (3.5-5.6cm)Aortic Root3.4 (2.0-3.7cm) PWd1.0 (0.7-1.1cm)Aortic Cusp Exc.1.9 (1.5-2.0cm) IVSs1.0 cmEPSS0.5 (>1.0cm) LVDs1.5 (2.5-4.0cm) PWs1.2 cm Other Information Technically limited study due to pt's breathing. <Conclusion> Normal left ventricular chamber size, systolic function and wall motion to extent visualized. Left ventricular ejection fraction estimated to be 65 %. Study quality precludes accurate assessment of regional wall motion. No left ventricular hypertrophy. Small and moderate circumferential pericardial effusion. No evidence of pleural effusion. All other cardiac chamber sizes are within normal limits. Focal aortic valve sclerosis with adequate cusp excursion. Thickened mitral valve leaflets with normal excursion. Mitral annulus and aortic root calcification. Pulmonic valve not well visualized. Normal tricuspid valve structure. IVC at normal size without physiologic collapse suggestive of mildly increased RA pressure. A color flow and spectral Doppler study was performed and revealed: Mild aortic regurgitation. Trace mitral regurgitation. Mitral diastolic velocities suggest reduced left ventricular relaxation c/w mild LV diastolic dysfunction (Grade I ). Moderate tricuspid regurgitation. Tricuspid systolic velocities suggests peak right ventricular systolic pressure of 41 mmHg, consistent with moderate pulmonary hypertension. Trace pulmonic regurgitation present. There is no respiratory variations more than 50% across TV. There is no respiratory variations more than 25% across MV.
--- NOTE | 2020-08-13 08:51 | Pulmonology Progress Note ---
Subjective ROS Limited/Unobtainable: Yes Constitutional: Reports: other - more alert Allergies: Coded Allergies: No Known Allergies (Unverified , 08/10/20) Subjective in SDU now on O2 4 L via NC, no resp distress CXR 08/12 NGT remains in isolation mild leukocytosis, likely due to steroids , no fevers on steroids and Remdesivivr creat down to 1.3 , remains stable pt did not participated much in BSSE, started on diet as per ST rec Objective Last 24 Hour Vital Signs Date Time Temp Pulse Resp B/P (MAP) Pulse Ox O2 Delivery O2 Flow Rate FiO2 08/13/20 04:00 97.7 74 20 144/87 (106) 98 08/13/20 04:00 4.0 08/13/20 04:00 58 08/13/20 04:00 Nasal Cannula 4.0 08/13/20 00:00 97.7 77 24 141/73 (95) 100 08/13/20 00:00 Nasal Cannula 4.0 08/13/20 00:00 56 08/12/20 20:12 63 08/12/20 20:00 Nasal Cannula 4.0 08/12/20 20:00 4.0 08/12/20 20:00 97.8 73 24 132/74 (93) 100 08/12/20 16:18 69 08/12/20 16:00 97.2 74 18 141/75 (97) 100 08/12/20 16:00 Nasal Cannula 4.0 08/12/20 16:00 4.0 08/12/20 12:44 58 08/12/20 12:00 Nasal Cannula 4.0 08/12/20 12:00 4.0 08/12/20 12:00 97.5 62 18 151/83 (105) 100 08/12/20 11:05 58 Intake and Output 08/12/20 08/13/20 19:00 07:00 Intake Total 665 ml 1020 ml Output Total 225 ml 400 ml Balance 440 ml 620 ml Intake Oral 195 ml 120 ml IV Total 470 ml 900 ml Output Urine Total 225 ml 400 ml Objective General Appearance: cachetic, chronically ill looking, bedridden frail male, confused Lines, tubes and drains: peripheral HEENT: normocephalic, atraumatic, anicteric, on O2 via NC Neck: non-tender, normal inspection, trachea midline Respiratory/Chest: no accessory muscle use; few isolated rhonchi Cardiovascular/Chest: regular rhythm, tele-SR Abdomen: normal bowel sounds, non tender, soft Extremities: no calf tenderness, normal capillary refill, no edema Neurologic: abnormal gait, confused, poorly responsive, moves all extremities Musculoskeletal: atrophy - BLE Laboratory Tests 08/12/20 12:07: POC Whole Blood Glucose 120H 08/12/20 17:20: POC Whole Blood Glucose 135H 08/12/20 20:44: POC Whole Blood Glucose 170H 08/13/20 03:30: White Blood Count 12.1H, Red Blood Count 4.19L, Hemoglobin 13.5L, Hematocrit 41.4L, Mean Corpuscular Volume 99, Mean Corpuscular Hemoglobin 32.3H, Mean Corpuscular Hemoglobin Concent 32.6, Red Cell Distribution Width 11.4L, Platelet Count 212, Mean Platelet Volume 8.1, Neutrophils (%) (Auto) , Lymphocytes (%) (Auto) , Monocytes (%) (Auto) , Eosinophils (%) (Auto) , Basophils (%) (Auto) , Neutrophils % (Manual) [Pending], Lymphocytes % (Manual) [Pending], Platelet Estimate [Pending], Platelet Morphology [Pending], Sodium Level 140, Potassium Level 4.3, Chloride Level 107, Carbon Dioxide Level 26, Anion Gap 7, Blood Urea Nitrogen 21H, Creatinine 1.3, Estimat Glomerular Filtration Rate > 60, Glucose Level 136H, Calcium Level 9.1, Magnesium Level 2.3, Total Bilirubin 0.5, Direct Bilirubin 0.2, Aspartate Amino Transf (AST/SGOT) 37, Alanine Aminotransferase (ALT/SGPT) 53, Alkaline Phosphatase 45L, Total Protein 6.5, Albumin 2.8L, Globulin 3.7, Albumin/Globulin Ratio 0.8L 08/13/20 05:46: POC Whole Blood Glucose 134H 08/13/20 06:00: Urine Eosinophils [Pending] Current Medications Medications (Trade) Dose Ordered Sig/Torsten Route PRN Reason Start Time Stop Time Status Last Admin Dose Admin Acetaminophen (Tylenol) 650 mg Q4H PRN ORAL Mild Pain (Pain Scale 1-3) 08/10/20 11:45 09/09/20 11:44 Albuterol Sulfate (Proventil MDI) 2 puff Q4H PRN INH Shortness of Breath 08/10/20 13:30 11/08/20 13:29 Barium Sulfate (Varibar Honey) 250 ml NOW PRN MC RAD 08/10/20 14:45 08/13/20 14:34 Barium Sulfate (Varibar [place]) 240 ml NOW PRN MC RAD 08/10/20 14:45 08/13/20 14:34 Barium Sulfate (Varibar Pudding) 230 ml NOW PRN MC RAD 08/10/20 14:45 08/13/20 14:34 Barium Sulfate (Varibar Thin Liquid powder) 148 gm NOW PRN RAD 08/10/20 14:45 08/13/20 14:34 Dexamethasone Sodium Phosphate (Decadron 10mg/ ml Inj) 6 mg DAILY IV 08/11/20 09:00 08/20/20 09:01 08/12/20 08:30 Dextrose (Dextrose 50%) 25 ml Q30M PRN IV Hypoglycemia 08/10/20 11:45 11/08/20 11:44 Dextrose (Dextrose 50%) 50 ml Q30M PRN IV Hypoglycemia 08/10/20 11:45 11/08/20 11:44 Dextrose/Sodium Chloride 1,000 ml @ 75 mls/hr [id number] IV 08/10/20 12:45 09/09/20 12:44 08/13/20 01:43 Insulin Aspart (NovoLOG) BEFORE MEALS AND HS SUBQ 08/10/20 21:00 11/08/20 20:59 08/12/20 21:31 Pantoprazole (Protonix) 40 mg DAILY IV 08/11/20 09:00 09/10/20 08:59 08/12/20 08:30 Piperacillin Sod/ Tazobactam Sod 3.375 gm/Sodium Chloride 110 ml @ 27.5 mls/hr EVERY 8 HOURS IVPB 08/10/20 18:00 08/15/20 17:59 08/13/20 05:41 Remdesivir 100 mg/ Sodium Chloride 250 ml @ 250 mls/hr Q24H IV 08/11/20 18:00 08/14/20 18:59 08/12/20 18:02 Rivaroxaban (Xarelto) 15 mg QPM ORAL 08/11/20 16:30 11/09/20 16:29 08/12/20 17:03 Assessment/Plan Assessment/Plan ASSESSMENT Probably sepsis Recent COVID infection/ never treated Probable PNA Aspiration risk Acute encephalopathy Elevated D dimer JERRY Proteinuria, possible diabetic nephropathy HTN DM Protein calorie malnutrition PLAN OF CARE AC isolation room titrate Fio2 to keep sat above 92%, now 4 L O2 via NC Albuterol via MDI prn empiric abx, fup with cx steroids and Remdesivvir D#4 ID follows recent COVID 19 at [facility], not treated at that time, closely monitor resp status CXR 08/12 NGT for acute CP pathology aspiration precautions DVT prophylaxis with Xarelto closely monitor renal parameters, nephro eval appreciated continue hydration creat down to 1.3, remains stable BSSE done, but pt not participated much in the study diet texture as per ST recs aspiration precautions IVF, BP and BS management GI prophylaxis protein suppl as per RD recs supportive care full code case discussed and evaluated by supervising physician Orly Dick NP Aug 13, 2020 08:51
[2020-08-13] MEDS: Pantoprazole Inj IV SCH (09:23)
[2020-08-13] MEDS: dexAMETHasone 10mg/ml Inj IV SCH (09:24)
--- NOTE | 2020-08-13 09:38 | Nephrology Progress Note ---
Assessment/Plan Problem List: (1) Dehydration (2) JERRY (acute kidney injury) (3) Sepsis (4) COVID-19 (5) Encephalopathy Assessment JERRY- Sepsis, recent Covid infection, possible pneumonia Aspiration risk Acute encephalopathy Hypertension Diabetes mellitus BMI 20.5/protein calorie malnutrition Plan August 13: Labs reviewed. Renal parameters and electrolytes stable. Continue per ID/pulmonary management. Patient on antibiotics, remdesivir, steroids Continue to hydrate Monitor blood sugar Monitor electrolytes and renal parameters Urine studies Avoid nephrotoxic's Per orders Subjective ROS Limited/Unobtainable: No Constitutional: Reports: malaise Objective Objective Last 24 Hour Vital Signs Date Time Temp Pulse Resp B/P (MAP) Pulse Ox O2 Delivery O2 Flow Rate FiO2 08/13/20 04:00 97.7 74 20 144/87 (106) 98 08/13/20 04:00 4.0 08/13/20 04:00 58 08/13/20 04:00 Nasal Cannula 4.0 08/13/20 00:00 97.7 77 24 141/73 (95) 100 08/13/20 00:00 Nasal Cannula 4.0 08/13/20 00:00 56 08/12/20 20:12 63 08/12/20 20:00 Nasal Cannula 4.0 08/12/20 20:00 4.0 08/12/20 20:00 97.8 73 24 132/74 (93) 100 08/12/20 16:18 69 08/12/20 16:00 97.2 74 18 141/75 (97) 100 08/12/20 16:00 Nasal Cannula 4.0 08/12/20 16:00 4.0 08/12/20 12:44 58 08/12/20 12:00 Nasal Cannula 4.0 08/12/20 12:00 4.0 08/12/20 12:00 97.5 62 18 151/83 (105) 100 08/12/20 11:05 58 Intake and Output 08/12/20 08/13/20 19:00 07:00 Intake Total 665 ml 1020 ml Output Total 225 ml 400 ml Balance 440 ml 620 ml Intake Oral 195 ml 120 ml IV Total 470 ml 900 ml Output Urine Total 225 ml 400 ml Current Medications Medications (Trade) Dose Ordered Sig/Torsten Route PRN Reason Start Time Stop Time Status Last Admin Dose Admin Acetaminophen (Tylenol) 650 mg Q4H PRN ORAL Mild Pain (Pain Scale 1-3) 08/10/20 11:45 09/09/20 11:44 Albuterol Sulfate (Proventil MDI) 2 puff Q4H PRN INH Shortness of Breath 08/10/20 13:30 11/08/20 13:29 Barium Sulfate (Varibar Honey) 250 ml NOW PRN RAD 08/10/20 14:45 08/13/20 14:34 Barium Sulfate (Varibar [place]) 240 ml NOW PRN RAD 08/10/20 14:45 08/13/20 14:34 Barium Sulfate (Varibar Pudding) 230 ml NOW PRN RAD 08/10/20 14:45 08/13/20 14:34 Barium Sulfate (Varibar Thin Liquid powder) 148 gm NOW PRN RAD 08/10/20 14:45 08/13/20 14:34 Dexamethasone Sodium Phosphate (Decadron 10mg/ ml Inj) 6 mg DAILY IV 08/11/20 09:00 08/20/20 09:01 08/13/20 09:24 Dextrose (Dextrose 50%) 25 ml Q30M PRN IV Hypoglycemia 08/10/20 11:45 11/08/20 11:44 Dextrose (Dextrose 50%) 50 ml Q30M PRN IV Hypoglycemia 08/10/20 11:45 11/08/20 11:44 Dextrose/Sodium Chloride 1,000 ml @ 75 mls/hr [id number] IV 08/10/20 12:45 09/09/20 12:44 08/13/20 01:43 Insulin Aspart (NovoLOG) BEFORE MEALS AND HS SUBQ 08/10/20 21:00 11/08/20 20:59 08/12/20 21:31 Pantoprazole (Protonix) 40 mg DAILY IV 08/11/20 09:00 09/10/20 08:59 08/13/20 09:23 Piperacillin Sod/ Tazobactam Sod 3.375 gm/Sodium Chloride 110 ml @ 27.5 mls/hr EVERY 8 HOURS IVPB 08/10/20 18:00 08/15/20 17:59 08/13/20 05:41 Remdesivir 100 mg/ Sodium Chloride 250 ml @ 250 mls/hr Q24H IV 08/11/20 18:00 08/14/20 18:59 08/12/20 18:02 Rivaroxaban (Xarelto) 15 mg QPM ORAL 08/11/20 16:30 11/09/20 16:29 08/12/20 17:03 Laboratory Tests 08/12/20 12:07: POC Whole Blood Glucose 120H 08/12/20 17:20: POC Whole Blood Glucose 135H 08/12/20 20:44: POC Whole Blood Glucose 170H 08/13/20 03:30: White Blood Count 12.1H, Red Blood Count 4.19L, Hemoglobin 13.5L, Hematocrit 41.4L, Mean Corpuscular Volume 99, Mean Corpuscular Hemoglobin 32.3H, Mean Corpuscular Hemoglobin Concent 32.6, Red Cell Distribution Width 11.4L, Platelet Count 212, Mean Platelet Volume 8.1, Neutrophils (%) (Auto) , Lymphocytes (%) (Auto) , Monocytes (%) (Auto) , Eosinophils (%) (Auto) , Basophils (%) (Auto) , Neutrophils % (Manual) [Pending], Lymphocytes % (Manual) [Pending], Platelet Estimate [Pending], Platelet Morphology [Pending], Sodium Level 140, Potassium Level 4.3, Chloride Level 107, Carbon Dioxide Level 26, Anion Gap 7, Blood Urea Nitrogen 21H, Creatinine 1.3, Estimat Glomerular Filtration Rate > 60, Glucose Level 136H, Calcium Level 9.1, Magnesium Level 2.3, Ferritin [Pending], Total Bilirubin 0.5, Direct Bilirubin 0.2, Aspartate Amino Transf (AST/SGOT) 37, Alanine Aminotransferase (ALT/SGPT) 53, Alkaline Phosphatase 45L, Total Protein 6.5, Albumin 2.8L, Globulin 3.7, Albumin/Globulin Ratio 0.8L 08/13/20 05:46: POC Whole Blood Glucose 134H 08/13/20 06:00: Urine Eosinophils None seen Height (Feet): 6 Height (Inches): 2.00 Weight (Pounds): 160 EENT: other - On nasal cannula Cardiovascular: normal rate Respiratory/Chest: decreased breath sounds Abdomen: soft Eyad Hunt MD Aug 13, 2020 09:38
[2020-08-13] MEDS ORDERED: Tubing IV Secondary IV ONE (10:03)
[2020-08-13] MEDS ORDERED: D5 1/2NS 1000ml IV ONE ×2 (10:03→13:44)
[2020-08-13] MEDS ORDERED: MULTI VITAMIN1 EACH ORAL (10:49)
--- NOTE | 2020-08-13 10:57 | NUR ---
NURSE NOTES: Reported Sinus Bradycardia with lowest of 46. Stat orders received.
[2020-08-13 12:00] VITALS: BP 139/72
--- NOTE | 2020-08-13 12:45 | Cardiac Electrophysiology PN ---
Subjective Subjective [id number] Objective Last 24 Hour Vital Signs Date Time Temp Pulse Resp B/P (MAP) Pulse Ox O2 Delivery O2 Flow Rate FiO2 08/13/20 08:00 Nasal Cannula 5.0 08/13/20 08:00 5.0 08/13/20 08:00 96.9 64 16 135/74 (94) 95 08/13/20 08:00 63 08/13/20 04:00 97.7 74 20 144/87 (106) 98 08/13/20 04:00 4.0 08/13/20 04:00 58 08/13/20 04:00 Nasal Cannula 4.0 08/13/20 00:00 97.7 77 24 141/73 (95) 100 08/13/20 00:00 Nasal Cannula 4.0 08/13/20 00:00 56 08/12/20 20:12 63 08/12/20 20:00 Nasal Cannula 4.0 08/12/20 20:00 4.0 08/12/20 20:00 97.8 73 24 132/74 (93) 100 08/12/20 16:18 69 08/12/20 16:00 97.2 74 18 141/75 (97) 100 08/12/20 16:00 Nasal Cannula 4.0 08/12/20 16:00 4.0 Intake and Output 08/12/20 08/13/20 19:00 07:00 Intake Total 665 ml 1020 ml Output Total 225 ml 400 ml Balance 440 ml 620 ml Intake Oral 195 ml 120 ml IV Total 470 ml 900 ml Output Urine Total 225 ml 400 ml Laboratory Tests Test 08/12/20 17:20 08/12/20 20:44 08/13/20 03:30 08/13/20 05:46 POC Whole Blood Glucose 135 MG/DL (74-106) H 170 MG/DL (74-106) H 134 MG/DL (74-106) H White Blood Count 12.1 K/UL (4.8-10.8) H Red Blood Count 4.19 M/UL (4.70-6.10) L Hemoglobin 13.5 G/DL (14.2-18.0) L Hematocrit 41.4 % (42.0-52.0) L Mean Corpuscular Volume 99 FL (80-99) Mean Corpuscular Hemoglobin 32.3 PG (27.0-31.0) H Mean Corpuscular Hemoglobin Concent 32.6 G/DL (32.0-36.0) Red Cell Distribution Width 11.4 % (11.6-14.8) L Platelet Count 212 K/UL (150-450) Mean Platelet Volume 8.1 FL (6.5-10.1) Neutrophils (%) (Auto) % (45.0-75.0) Lymphocytes (%) (Auto) % (20.0-45.0) Monocytes (%) (Auto) % (1.0-10.0) Eosinophils (%) (Auto) % (0.0-3.0) Basophils (%) (Auto) % (0.0-2.0) Differential Total Cells Counted 100 Neutrophils % (Manual) 95 % (45-75) H Lymphocytes % (Manual) 3 % (20-45) L Monocytes % (Manual) 2 % (1-10) Eosinophils % (Manual) 0 % (0-3) Basophils % (Manual) 0 % (0-2) Band Neutrophils 0 % (0-8) Platelet Estimate Adequate Platelet Morphology Giant Platelets Occasional Macrocytosis 1+ [place] Cells Occasional Sodium Level 140 MMOL/L (136-145) Potassium Level 4.3 MMOL/L (3.5-5.1) Chloride Level 107 MMOL/L (98-107) Carbon Dioxide Level 26 MMOL/L (21-32) Anion Gap 7 mmol/L (5-15) Blood Urea Nitrogen 21 mg/dL (7-18) H Creatinine 1.3 MG/DL (0.55-1.30) Estimat Glomerular Filtration Rate > 60 mL/min (>60) Glucose Level 136 MG/DL (74-106) H Calcium Level 9.1 MG/DL (8.5-10.1) Magnesium Level 2.3 MG/DL (1.8-2.4) Ferritin 1499 NG/ML (8-388) H Total Bilirubin 0.5 MG/DL (0.2-1.0) Direct Bilirubin 0.2 MG/DL (0.0-0.3) Aspartate Amino Transf (AST/SGOT) 37 U/L (15-37) Alanine Aminotransferase (ALT/SGPT) 53 U/L (12-78) Alkaline Phosphatase 45 U/L (46-116) L Troponin I 0.084 ng/mL (0.000-0.056) Total Protein 6.5 G/DL (6.4-8.2) Albumin 2.8 G/DL (3.4-5.0) L Globulin 3.7 g/dL Albumin/Globulin Ratio 0.8 (1.0-2.7) L Test 08/13/20 06:00 08/13/20 12:40 Urine Eosinophils None seen (NONE SEEN) POC Whole Blood Glucose 122 MG/DL (74-106) H Microbiology Date/Time Source Procedure Growth Status 08/10/20 14:18 Rectum - Final NO CARBAPENEM-RESISTANT ENTEROBACTERI... Complete Ronald Baer MD Aug 13, 2020 12:45
[2020-08-13] MEDS ORDERED: NS 275ml ONE (13:44)
[2020-08-13] MEDS ORDERED: Sterile Water Irrig 1000ml IRRIG ONE (13:44)
[2020-08-13] MEDS ORDERED: 1/2 NS 1000ml IV ONE (13:44)
--- NOTE | 2020-08-13 15:38 | NUR ---
TRANSFER UPDATE RECEIVED CALL FROM PATIENT'S GRANDDAUGHTER (MARY T: [phone]) SHE IS REQUESTING PATIENT BE TRANSFERRED TO [facility] EXPLAINED TO STACY THAT THIS CASE MANGER WOULD LEAVE A MESSAGE FOR THE [facility] EMPLOYMENT SUPERVISOR AND ASK HIM TO ARRANGE TRANSFER AND TO CALL THE GRANDDAUGHTER LEFT VMM FOR [facility] EMPLOYMENT SUPERVISOR RIOS UNTIL [facility] ARRANGES TRANSFER THERE IS NOTHING THIS EMPLOYMENT SUPERVISOR CAN DO Addendum: 08/13/20 at 1609 by HAFSA ARAIZA LVN LVN SECOND MESSAGE LEFT FOR DOM BRODY AT [facility] ALSO LEFT MESSAGE FOR [facility] REFRACTORY TECHNICIAN, DELBERT, REGARDING GRANDDAUGHTER'S REQUEST FOR TRANSFER
--- NOTE | 2020-08-13 15:45 | Consultation ---
DATE OF CONSULTATION: 08/13/2020 CARDIOLOGY CONSULTATION CONSULTING PHYSICIAN: Ronald Baer MD REFERRING PHYSICIAN: Sonu Fagan MD REASON FOR CONSULTATION: Management of atrial fibrillation, pericardial effusion, and elevated troponin in a patient with recent COVID-19 pneumonia. HISTORY OF PRESENT ILLNESS: Patient is an 85-year-old gentleman who lives in a longterm facility with history of hypertension, diabetes, recent COVID-19 pneumonia who was sent from the facility for pulse oximeter in the 80s. Patient was placed on 100% non-rebreather facemask in saturation to 92%. Patient was recently at [facility], diagnosed with COVID-19, and was doing better and was not treated with steroids or remdesivir. Patient was evaluated and admitted. His echocardiogram showed ejection fraction of 65%; however, with moderate pericardial effusion. Even though EKG initially shows sinus rhythm, EKG from today was showed very low voltage and symptoms of atrial fibrillation. The troponin was also elevated. Cardiac electrophysiology consultation was obtained for further evaluation. REVIEW OF SYSTEMS: Cannot be obtained. PAST MEDICAL HISTORY: As mentioned above. FAMILY HISTORY: Noncontributory. SOCIAL HISTORY: assisted resident. PHYSICAL EXAMINATION: VITAL SIGNS: Show blood pressure of 134/74, pulse 64, respirations 18, temperature 96.9. HEAD AND NECK: Showed no JVD. LUNGS: Coarse rhonchi. CARDIOVASCULAR: Shows irregular S1 and S2 with no gallop or murmur. ABDOMEN: Soft. EXTREMITIES: No pitting edema. LABORATORY DATA: White count 12.1, hemoglobin 13.1, hematocrit 41.4, platelet count is 212,000. Troponin is 0.084, but initial troponin was negative. His EKG showed atrial fibrillation, low voltage even though prior EKG showed sinus rhythm. ASSESSMENT AND PLAN: 1. Troponin elevation. The first troponin was negative. We will completely rule out [place] protocol. EKG is very low voltage, it is nondiagnostic. We will repeat the EKG and repeat the cardiac enzymes in the morning for further evaluation. Patient is already on Xarelto 15 mg at night. 2. Atrial fibrillation. Again low voltage. Rate is controlled. Patient is already on Xarelto. 3. Low-voltage QRS, likely due to patient's moderate pericardial effusion, but clinically no tamponade physiology. 4. COVID infection, on remdesivir and IV antibiotic as well as Xarelto. 5. History of diabetes. 6. Hypoxemia. Thank you very much for allowing me to participate in the care of this patient. Please do not hesitate to contact me for any questions regarding my evaluation. Ronald Baer M.D. DR: HARINDER JOB#: [id number] CC:
--- NOTE | 2020-08-13 15:51 | NUR ---
NURSE NOTES: Reported to Dr. Fagan that patient is not eating. Order received for NGT placement and nutrition eval for feed recommendation.
--- NOTE | 2020-08-13 15:58 | NUR ---
NEUROLOGISTANALYTICS DEVELOPER SI; COVID 19 PNA, LEUKOCYTOSIS T. 96.9 HR 63 RR 16 B/P 144/87 4L N/C O2 SAT @ 98% WBC 12.1 TROP 0.084 IS: REMDESIVIR IV DECADRON IV ZOSYN IV IVF D5NS@ 75ML/HR STEP DOWN STATUS
[2020-08-13 16:00] VITALS: BP 148/74
--- NOTE | 2020-08-13 16:01 | NUR ---
DRYING CAN WORKER NOTES CLINICALS REVIEWED AND FAXED.
[2020-08-13] MEDS: Xarelto 15mg tab ORAL SCH (16:30)
[2020-08-13] MEDS: Maintenance Dose:Remdesivir 100mg/NS 230ml x 4 Doses IV SCH ×2 (18:12)
--- NOTE | 2020-08-13 19:15 | NUR ---
NURSE NOTES: Received report from MIRTA Devries. Pt is awake, alert/oriented x2-3. Vital signs are stable. Sinus Rhythm on the project management advisor. Peripheral IV is intact and patent. Tolerating 4L O2 via NC and saturating 98%. Espino catheter is intact and patent and draining yellowish urine. Skin issues noted. Bed is locked and in lowest position, bed alarm on, call light within reach. Will continue to monitor the pt. Will continue with the plan of care.
--- NOTE | 2020-08-13 19:35 | NUR ---
NURSE HAND-OFF REPORT: Important Events on Shift: Patient ericka. Dr. Baer consulted. Patient Status: Stable Diet: CCHO Pending Orders: N/A Pending Results/Labs:n/a Pending MD notification:n/a Latest Vital Signs: Temperature 97.7 , Pulse 81 , B/P 148 /74 , Respiratory Rate 18 , O2 SAT 96 , Nasal Cannula, O2 Flow Rate 4.0 . Vital Sign Comment: STABLE EKG Rhythm: Sinus Rhythm Rhythm change?: N MD Notified?: - MD Response: Latest Jacobsen Fall Score: 75 Fall Risk: High Risk Safety Measures: Call light Within Reach, Bed Alarm Zone 2, Side Rails Side Rails x3, Bed position Low and Locked. Fall Precautions: Yellow Socks Yellow Gown Door Sign Patient Fall Education Report given to Galilea. Resistive when NGT being placed although agreeing to it but kept stating "no it hurts, stop". Endorsed to try again. Plan of care endorsed.
[2020-08-13 20:00] VITALS: BP 134/78
--- NOTE | 2020-08-13 22:00 | NUR ---
NURSE NOTES: Initial assessment done. Evening medications given. Pt ate 90% of his dinner. Denies pain. Tolerating 4L O2 saturating 100%. Vital signs remain stable. Will continue to monitor pt.
[2020-08-14] VITALS: BP 157/65
--- NOTE | 2020-08-14 | NUR ---
NURSE NOTES: Pt is asleep. Not in distress. O2 saturation remain 100%. Vital signs stable. Will continue to monitor pt.
[2020-08-14 04:00] VITALS: BP 134/71
--- NOTE | 2020-08-14 04:00 | NUR ---
NURSE NOTES: Pt is asleep. Not in distress. Tolerating 4L O2 With O2 sat of 100%. 12 lead EKG done, In and out of SR/AFib in the front desk monitor. Vital signs stable. Will continue to monitor pt.
--- NOTE | 2020-08-14 04:00 | NUR ---
NURSE NOTES: Bed bath done, dressings changed, repositioned. Pt pooped, small brown, black stool. Tolerating O2 4L saturating 100%. Vital signs remain stable. Espino catheter intact draining yellowish urine with tiny streaks of blood and blood clots. Will continue to monitor pt.
[2020-08-14] MEDS: D5 1/2NS 1,000 ML IV SCH ×2 (04:08→18:05)
[2020-08-14] MEDS: Piperacillin/Tazobactam 3.375 GM in NS 110 ML IVPB SCH ×3 (05:35→21:30)
[2020-08-14] MEDS: NovoLOG Insulin Flexpen SUBQ SCH ×4 (05:53→21:00)
[2020-08-14 06:02] LABS: HEMATOCRIT 40.3 % (42.0-52.0); HEMOGLOBIN 13.3 G/DL (14.2-18.0); MEAN CORPUSCULAR VOLUME 98 FL (80-99); PLATELET COUNT 211 K/UL (150-450); RED BLOOD COUNT 4.11 M/UL (4.70-6.10); RED CELL DISTRIBUTION WIDTH 11.2 % (11.6-14.8); WHITE BLOOD COUNT 14.2 K/UL (4.8-10.8)
[2020-08-14 06:30] LABS: ANION GAP 6 mmol/L (5-15); BLOOD UREA NITROGEN 21 mg/dL (7-18); CALCIUM 8.9 MG/DL (8.5-10.1); CARBON DIOXIDE 27 MMOL/L (21-32); CHLORIDE 108 MMOL/L (98-107); CREATININE 1.3 MG/DL (0.55-1.30); POTASSIUM 3.9 MMOL/L (3.5-5.1); SODIUM 141 MMOL/L (136-145)
--- NOTE | 2020-08-14 07:25 | NUR ---
NURSE HAND-OFF REPORT: Important Events on Shift:None Patient Status: stable, Full code Diet: CCHO, pureed, nectar thick Pending Orders: N Pending Results/Labs:N Pending MD notification:N Latest Vital Signs: Temperature 97.2 , Pulse 62 , B/P 134 /71 , Respiratory Rate 18 , O2 SAT 100 , Nasal Cannula, O2 Flow Rate 4.0 . Vital Sign Comment: stable EKG Rhythm: Sinus Rhythm Rhythm change?: Y MD Notified?: N - MD Response: Latest Jacobsen Fall Score: 75 Fall Risk: High Risk Safety Measures: Call light Within Reach, Bed Alarm Zone 2, Side Rails Side Rails x3, Bed position Low and Locked. Fall Precautions: Yellow Socks Yellow Gown Door Sign Patient Fall Education Report given to MIRTA Valerio
[2020-08-14 08:00] VITALS: BP 146/76
--- NOTE | 2020-08-14 08:04 | NUR ---
RD ASSESSMENT & RECOMMENDATIONS SEE CARE ACTIVITY FOR COMPLETE ASSESSMENT DAILY ESTIMATED NEEDS: Needs based on Pulmonary 51 25-35 kcals/kg 9311-5922 total kcals 1-1.5 g protein/kg 51-77 g total protein 25-30 mL/kg 4883-6442 total fluid mLs NUTRITION DIAGNOSIS: Altered nutrition related lab values r/t clinical status as evidenced by elev A1C (6.5), elev AST, covid ++. CURRENT DIET: CCHO MED puree w/ NTL PO DIET RECOMMENDATIONS: Regular diet/ texture per BRAND DIRECTOR ADDITIONAL RECOMMENDATIONS: 1) Rec Glucerna supplements w/ Regular diet order monitor PO intake and need for added snacks 2) EMR wt: 72.5kg---> now 51kg Verify ht and wt as able 3) BRAND DIRECTOR eval pending 4) Monitor PO intake, BG and need for carb control diet
--- NOTE | 2020-08-14 08:10 | NUR ---
NURSE NOTES:Handoff received from MIRTA Calero. Patient received resting in bed, no acute signs of distress noted. 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 Patient is on nasal cannula 4 liters saturating at 97%. patient is on isolation for Covid placed on fall and aspiration precaution, bed in the low and locked position with call light within reach, Espino is attached to bedside and is draining to gravity. IV sites are clean dry and intact with R wrist running D51/2NS@&%ML/HR. will follow plan of care.
--- NOTE | 2020-08-14 09:05 | Pulmonology Progress Note ---
Subjective ROS Limited/Unobtainable: No Constitutional: Reports: other - more alert Allergies: Coded Allergies: No Known Allergies (Unverified , 08/10/20) Subjective in SDU on O2 4 L via NC, no resp distress CXR 08/12 NGT remains in isolation persistent leukocytosis, likely due to steroids , no fevers on steroids and Remdesivivr creat down to 1.3 , remains stable episode of ericka 08/13, cardio consulted minimal troponin elevation 08/13 and 08/14 pt did not participated much in BSSE, started on diet as per ST recs, not eating, resisted NG tube palcemnet Objective Last 24 Hour Vital Signs Date Time Temp Pulse Resp B/P (MAP) Pulse Ox O2 Delivery O2 Flow Rate FiO2 08/14/20 04:00 Nasal Cannula 4.0 08/14/20 04:00 4.0 08/14/20 04:00 97.2 62 18 134/71 (92) 100 08/14/20 03:41 73 08/14/20 00:00 Nasal Cannula 4.0 08/14/20 00:00 97.3 67 18 157/65 (95) 100 08/14/20 00:00 65 08/13/20 20:00 Nasal Cannula 4.0 08/13/20 20:00 4.0 08/13/20 20:00 96.9 75 18 134/78 (96) 100 08/13/20 19:16 83 08/13/20 16:00 Nasal Cannula 4.0 08/13/20 16:00 74 08/13/20 16:00 4.0 08/13/20 16:00 97.7 81 18 148/74 (98) 96 08/13/20 12:00 74 08/13/20 12:00 Nasal Cannula 4.0 08/13/20 12:00 4.0 08/13/20 12:00 97.2 81 18 139/72 (94) 96 Intake and Output 08/13/20 08/14/20 19:00 07:00 Intake Total 175 ml 1205.0 ml Output Total 300 ml 550 ml Balance -125 ml 655.0 ml Intake Oral 100 ml 120 ml IV Total 75 ml 1085.0 ml Output Urine Total 300 ml 550 ml Objective General Appearance: cachetic, chronically ill looking, bedridden frail male, confused Lines, tubes and drains: peripheral HEENT: normocephalic, atraumatic, anicteric, on O2 via NC Neck: non-tender, normal inspection, trachea midline Respiratory/Chest: no accessory muscle use; few isolated rhonchi Cardiovascular/Chest: regular rhythm, tele-SR Abdomen: normal bowel sounds, non tender, soft Extremities: no calf tenderness, normal capillary refill, no edema Neurologic: abnormal gait, confused, poorly responsive, moves all extremities Musculoskeletal: atrophy - BLE Laboratory Tests 08/13/20 12:40: POC Whole Blood Glucose 122H 08/13/20 17:55: POC Whole Blood Glucose 136H 08/13/20 21:18: POC Whole Blood Glucose 121H 08/14/20 03:40: White Blood Count 14.2H, Red Blood Count 4.11L, Hemoglobin 13.3L, Hematocrit 40.3L, Mean Corpuscular Volume 98, Mean Corpuscular Hemoglobin 32.4H, Mean Corpuscular Hemoglobin Concent 33.1, Red Cell Distribution Width 11.2L, Platelet Count 211, Mean Platelet Volume 7.9, Neutrophils (%) (Auto) , Lymphocytes (%) (Auto) , Monocytes (%) (Auto) , Eosinophils (%) (Auto) , Basophils (%) (Auto) , Differential Total Cells Counted 100, Neutrophils % (Manual) 88H, Lymphocytes % (Manual) 4L, Monocytes % (Manual) 8, Eosinophils % (Manual) 0, Basophils % (Manual) 0, Band Neutrophils 0, Platelet Estimate Adequate, Platelet Morphology Normal, Les Cells Occasional, Sodium Level 141, Potassium Level 3.9, Chloride Level 108H, Carbon Dioxide Level 27, Anion Gap 6, Blood Urea Nitrogen 21H, Creatinine 1.3, Estimat Glomerular Filtration Rate > 60, Glucose Level 112H, Calcium Level 8.9, Direct Bilirubin 0.2, Troponin I 0.074H, C-Reactive Protein, Quantitative 2.4H, Pro-B-Type Natriuretic Peptide 376H 08/14/20 04:30: Urine Eosinophils None seen 08/14/20 05:46: POC Whole Blood Glucose 93 Current Medications Medications (Trade) Dose Ordered Sig/Torsten Route PRN Reason Start Time Stop Time Status Last Admin Dose Admin Acetaminophen (Tylenol) 650 mg Q4H PRN ORAL Mild Pain (Pain Scale 1-3) 08/10/20 11:45 09/09/20 11:44 Albuterol Sulfate (Proventil MDI) 2 puff Q4H PRN INH Shortness of Breath 08/10/20 13:30 11/08/20 13:29 Dexamethasone Sodium Phosphate (Decadron 10mg/ ml Inj) 6 mg DAILY IV 08/11/20 09:00 08/20/20 09:01 08/13/20 09:24 Dextrose (Dextrose 50%) 25 ml Q30M PRN IV Hypoglycemia 08/10/20 11:45 11/08/20 11:44 Dextrose (Dextrose 50%) 50 ml Q30M PRN IV Hypoglycemia 08/10/20 11:45 11/08/20 11:44 Dextrose/Sodium Chloride 1,000 ml @ 75 mls/hr [id number] IV 08/10/20 12:45 09/09/20 12:44 08/14/20 04:08 Insulin Aspart (NovoLOG) BEFORE MEALS AND HS SUBQ 08/10/20 21:00 11/08/20 20:59 08/12/20 21:31 Pantoprazole (Protonix) 40 mg DAILY IV 08/11/20 09:00 09/10/20 08:59 08/13/20 09:23 Piperacillin Sod/ Tazobactam Sod 3.375 gm/Sodium Chloride 110 ml @ 27.5 mls/hr EVERY 8 HOURS IVPB 08/10/20 18:00 08/15/20 17:59 08/14/20 05:35 Remdesivir 100 mg/ Sodium Chloride 250 ml @ 250 mls/hr Q24H IV 08/11/20 18:00 08/14/20 18:59 08/13/20 18:12 Rivaroxaban (Xarelto) 15 mg QPM ORAL 08/11/20 16:30 11/09/20 16:29 08/12/20 17:03 Assessment/Plan Assessment/Plan ASSESSMENT Probably sepsis Recent COVID infection/ never treated Probable PNA Aspiration risk Elevated troponin Bradycardia Paroxysmal atrial fibrillation Acute encephalopathy Elevated D dimer JERRY -resolved Proteinuria, HTN DM Protein calorie malnutrition PLAN OF CARE AC isolation room titrate Fio2 to keep sat above 92%, on 4 L O2 via NC Albuterol via MDI prn empiric abx, BCX 08/10 NGTD steroids and Remdesivvir D#5 mild leukocytosis, probably due to steroids ID follows recent COVID 19 at [facility], not treated at that time, closely monitor resp status CRP down to 2.4, ferritin down to 1499 CXR 08/12 NGT for acute CP pathology will f/up with CXR in am aspiration precautions minimal troponin elevation 08/13 and 08/14 cardio eval appreciates PAF rate controlled on Xarelto already closely monitor renal parameters, nephro eval appreciated continue hydration creat down to 1.3, remains stable BSSE done, but pt not participated diet texture as per ST recs not eating, declined NGT aspiration precautions continue IVF, BP and BS management GI prophylaxis will consider GI eval protein suppl as per RD recs supportive care full code case discussed and evaluated by supervising physician Orly Dick NP Aug 14, 2020 09:05
--- NOTE | 2020-08-14 09:10 | NUR ---
NURSE NOTES:Patient ate eggs from his breakfast plate but refused the rest.
--- NOTE | 2020-08-14 09:28 | Nephrology Progress Note ---
Assessment/Plan Problem List: (1) Dehydration (2) JERRY (acute kidney injury) (3) Sepsis (4) COVID-19 (5) Encephalopathy Assessment JERRY- Sepsis, recent Covid infection, possible pneumonia Aspiration risk Acute encephalopathy Hypertension Diabetes mellitus BMI 20.5/protein calorie malnutrition Plan August 14: No chemistry panel done today. Stable from renal standpoint of view. August 13: Labs reviewed. Renal parameters and electrolytes stable. Continue per ID/pulmonary management. Patient on antibiotics, remdesivir, steroids Continue to hydrate Monitor blood sugar Monitor electrolytes and renal parameters Urine studies Avoid nephrotoxic's Per orders Subjective ROS Limited/Unobtainable: No Objective Objective Last 24 Hour Vital Signs Date Time Temp Pulse Resp B/P (MAP) Pulse Ox O2 Delivery O2 Flow Rate FiO2 08/14/20 04:00 Nasal Cannula 4.0 08/14/20 04:00 4.0 08/14/20 04:00 97.2 62 18 134/71 (92) 100 08/14/20 03:41 73 08/14/20 00:00 Nasal Cannula 4.0 08/14/20 00:00 97.3 67 18 157/65 (95) 100 08/14/20 00:00 65 08/13/20 20:00 Nasal Cannula 4.0 08/13/20 20:00 4.0 08/13/20 20:00 96.9 75 18 134/78 (96) 100 08/13/20 19:16 83 08/13/20 16:00 Nasal Cannula 4.0 08/13/20 16:00 74 08/13/20 16:00 4.0 08/13/20 16:00 97.7 81 18 148/74 (98) 96 08/13/20 12:00 74 08/13/20 12:00 Nasal Cannula 4.0 08/13/20 12:00 4.0 08/13/20 12:00 97.2 81 18 139/72 (94) 96 Intake and Output 08/13/20 08/14/20 19:00 07:00 Intake Total 175 ml 1205.0 ml Output Total 300 ml 550 ml Balance -125 ml 655.0 ml Intake Oral 100 ml 120 ml IV Total 75 ml 1085.0 ml Output Urine Total 300 ml 550 ml Laboratory Tests 08/13/20 12:40: POC Whole Blood Glucose 122H 08/13/20 17:55: POC Whole Blood Glucose 136H 08/13/20 21:18: POC Whole Blood Glucose 121H 08/14/20 03:40: White Blood Count 14.2H, Red Blood Count 4.11L, Hemoglobin 13.3L, Hematocrit 40.3L, Mean Corpuscular Volume 98, Mean Corpuscular Hemoglobin 32.4H, Mean Corpuscular Hemoglobin Concent 33.1, Red Cell Distribution Width 11.2L, Platelet Count 211, Mean Platelet Volume 7.9, Neutrophils (%) (Auto) , Lymphocytes (%) (Auto) , Monocytes (%) (Auto) , Eosinophils (%) (Auto) , Basophils (%) (Auto) , Differential Total Cells Counted 100, Neutrophils % (Manual) 88H, Lymphocytes % (Manual) 4L, Monocytes % (Manual) 8, Eosinophils % (Manual) 0, Basophils % (Manual) 0, Band Neutrophils 0, Platelet Estimate Adequate, Platelet Morphology Normal, Les Cells Occasional, Sodium Level 141, Potassium Level 3.9, Chloride Level 108H, Carbon Dioxide Level 27, Anion Gap 6, Blood Urea Nitrogen 21H, Creatinine 1.3, Estimat Glomerular Filtration Rate > 60, Glucose Level 112H, Calcium Level 8.9, Direct Bilirubin 0.2, Troponin I 0.074H, C-Reactive Protein, Quantitative 2.4H, Pro-B-Type Natriuretic Peptide 376H 08/14/20 04:30: Urine Eosinophils None seen 08/14/20 05:46: POC Whole Blood Glucose 93 Height (Feet): 6 Height (Inches): 2.00 Weight (Pounds): 160 General Appearance: no apparent distress Objective No change Eyad Hunt MD Aug 14, 2020 09:27
[2020-08-14] MEDS: dexAMETHasone 10mg/ml Inj IV SCH (09:44)
[2020-08-14] MEDS: Pantoprazole Inj IV SCH (09:44)
--- NOTE | 2020-08-14 10:32 | Cardiac Electrophysiology PN ---
Assessment/Plan Assessment/Plan 1. Troponin elevation. The first troponin was negative. FU trponins mildly elevated at 0.08 and 0.07 EKG is very low voltage, it is nondiagnostic. Patient is already on Xarelto 15 mg daily 2. Atrial fibrillation. Again low voltage. Rate is controlled. Patient is already on Xarelto. 3. Low-voltage QRS, likely due to patient's moderate pericardial effusion, but clinically no tamponade physiology. 4. COVID infection, on remdesivir and IV antibiotic as well as Xarelto. 5. History of diabetes. 6. Hypoxemia. Subjective Subjective In and out of atrial fib. Refused NGT. In isolation for Covid Objective Last 24 Hour Vital Signs Date Time Temp Pulse Resp B/P (MAP) Pulse Ox O2 Delivery O2 Flow Rate FiO2 08/14/20 08:00 97.9 76 20 146/76 (99) 100 08/14/20 08:00 Nasal Cannula 4.0 08/14/20 04:00 Nasal Cannula 4.0 08/14/20 04:00 4.0 08/14/20 04:00 97.2 62 18 134/71 (92) 100 08/14/20 03:41 73 08/14/20 00:00 Nasal Cannula 4.0 08/14/20 00:00 97.3 67 18 157/65 (95) 100 08/14/20 00:00 65 08/13/20 20:00 Nasal Cannula 4.0 08/13/20 20:00 4.0 08/13/20 20:00 96.9 75 18 134/78 (96) 100 08/13/20 19:16 83 08/13/20 16:00 Nasal Cannula 4.0 08/13/20 16:00 74 08/13/20 16:00 4.0 08/13/20 16:00 97.7 81 18 148/74 (98) 96 08/13/20 12:00 74 08/13/20 12:00 Nasal Cannula 4.0 08/13/20 12:00 4.0 08/13/20 12:00 97.2 81 18 139/72 (94) 96 Intake and Output 08/13/20 08/14/20 19:00 07:00 Intake Total 175 ml 1205.0 ml Output Total 300 ml 550 ml Balance -125 ml 655.0 ml Intake Oral 100 ml 120 ml IV Total 75 ml 1085.0 ml Output Urine Total 300 ml 550 ml Laboratory Tests Test 08/13/20 12:40 08/13/20 17:55 08/13/20 21:18 08/14/20 03:40 POC Whole Blood Glucose 122 MG/DL (74-106) H 136 MG/DL (74-106) H 121 MG/DL (74-106) H White Blood Count 14.2 K/UL (4.8-10.8) H Red Blood Count 4.11 M/UL (4.70-6.10) L Hemoglobin 13.3 G/DL (14.2-18.0) L Hematocrit 40.3 % (42.0-52.0) L Mean Corpuscular Volume 98 FL (80-99) Mean Corpuscular Hemoglobin 32.4 PG (27.0-31.0) H Mean Corpuscular Hemoglobin Concent 33.1 G/DL (32.0-36.0) Red Cell Distribution Width 11.2 % (11.6-14.8) L Platelet Count 211 K/UL (150-450) Mean Platelet Volume 7.9 FL (6.5-10.1) Neutrophils (%) (Auto) % (45.0-75.0) Lymphocytes (%) (Auto) % (20.0-45.0) Monocytes (%) (Auto) % (1.0-10.0) Eosinophils (%) (Auto) % (0.0-3.0) Basophils (%) (Auto) % (0.0-2.0) Differential Total Cells Counted 100 Neutrophils % (Manual) 88 % (45-75) H Lymphocytes % (Manual) 4 % (20-45) L Monocytes % (Manual) 8 % (1-10) Eosinophils % (Manual) 0 % (0-3) Basophils % (Manual) 0 % (0-2) Band Neutrophils 0 % (0-8) Platelet Estimate Adequate Platelet Morphology Normal Les Cells Occasional Sodium Level 141 MMOL/L (136-145) Potassium Level 3.9 MMOL/L (3.5-5.1) Chloride Level 108 MMOL/L (98-107) H Carbon Dioxide Level 27 MMOL/L (21-32) Anion Gap 6 mmol/L (5-15) Blood Urea Nitrogen 21 mg/dL (7-18) H Creatinine 1.3 MG/DL (0.55-1.30) Estimat Glomerular Filtration Rate > 60 mL/min (>60) Glucose Level 112 MG/DL (74-106) H Calcium Level 8.9 MG/DL (8.5-10.1) Direct Bilirubin 0.2 MG/DL (0.0-0.3) Troponin I 0.074 ng/mL (0.000-0.056) C-Reactive Protein, Quantitative 2.4 mg/dL (0.00-0.90) H Pro-B-Type Natriuretic Peptide 376 pg/mL (0-125) H Test 08/14/20 04:30 08/14/20 05:46 Urine Eosinophils None seen (NONE SEEN) POC Whole Blood Glucose 93 MG/DL (74-106) Objective HEAD AND NECK: Showed no JVD. LUNGS: Coarse rhonchi. CARDIOVASCULAR: Shows irregular S1 and S2 with no gallop or murmur. ABDOMEN: Soft. EXTREMITIES: No pitting edema. Ronald Baer MD Aug 14, 2020 10:32
[2020-08-14 11:57] VITALS: BP 153/78
--- NOTE | 2020-08-14 12:22 | NUR ---
SPEECH PATHOLOGY NOTE: PATIENT SEEN FOR DYSPHAGIA TX SESSION, CLEARED BY MIRTA VILLEDA. PATIENT WAS ALERT, COOPERATIVE, ANSWERING SIMPLE QUESTIONS FROM CLINICIAN. HE WAS POSITIONED AT 90 DEGREES UPRIGHT FOR P.O. TRIALS OF PUREE AND NECTAR THICK LIQUID PRESENTED IN 5ML AMOUNT VIA SPOON. PER OBSERVATION, ORAL PHASE PRESENTED MILDLY DELAYED IN BOLUS FORMATION, BOLUS TRANSFER. PHARYNGEAL PHASE C/B MILD/MOD DELAY IN INITIATION OF PHARYNGEAL PHASE OF SWALLOW. FULL HYOLARYNGEAL EXCURSION OBSERVED. CLEAR UPPER AIRWAY SOUNDS POST SWALLOW. NO OVERT S/S OF ASPIRATION OBSERVED. PATIENT OPENED HIS EYES BRIEFLY UPON REQUEST. HE PRESENTS MALNOURISHED, PER RD ASSESSMENT: Current Diet CCHO MED puree w/ NTL PO Intake Variable PO Intake Comment mostly 0% w/ 90% of dinner last night Diagnosis Altered nutrition related lab values r/t clinical status as evidenced by elev A1C (6.5), elev AST, covid ++. Diet Regular diet/ texture per DISPATCH CLERK Recommendation #1 1) Rec Glucerna supplements w/ Regular diet order Recommendation #2 monitor PO intake and need for added snacks Recommendation #3 2) EMR wt: 72.5kg---> now 51kg Recommendation #4 Verify ht and wt as able Recommendation #5 3) DISPATCH CLERK eval pending Recommendation #6 4) Monitor PO intake, BG and need for carb control diet Education Comment iso, A&O x1 Nutrition Monitoring & Evaluation Wt stable/gain/loss PO intake adequacy Tolerate intake/delivery Blood Glucose Control Na/Fluid status Phos,Magnesium,K+ Nutrition Risk High Reassessment Due CONTINUE CURRENT DIET TEXTURE (PUREE/NECTAR THICK LIQUIDS) WITH MEALTIME SUPPLEMENTATION PER RD RECOMMENDATION, TOTAL ASSIST WITH MEALS, CRUSH CRUSHABLE MEDS/PRESENT IN PUREE, ORAL CARE POST P.O. ST TO FOLLOW FOR DIET TOLERANCE, ANALYZE/ADJUST DIET TEXTURE. THANK YOU FOR THIS REFERRAL.
--- NOTE | 2020-08-14 12:40 | NUR ---
NURSE NOTES:Patient does not want to eat any lunch at this time stating he is not hungry.
--- NOTE | 2020-08-14 13:01 | NUR ---
NURSE NOTES:Tried calling the grand-daughter twice from the patient room but did not get an answer.
--- NOTE | 2020-08-14 13:30 | NUR ---
NURSE NOTES:Called the number located on the face sheet from patient room so that patient could speak to his grand-daughter Apryl.
--- NOTE | 2020-08-14 14:26 | NUR ---
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 97.7 HR 70 RR 20 B/P 146/76 4L NC O2 SAT @ 98% WBC 14.2 IS: REDEMSIVIR IV DECADRON IV PROTONIX IV IVF D5NS@ 75ML/HR STEP DOWN STATUS
--- NOTE | 2020-08-14 14:30 | NUR ---
MEDIA ASSISTANT NOTES CLINICALS REVIEWED AND FAXED.
--- NOTE | 2020-08-14 15:33 | Infectious Diseases Prog Note ---
Assessment/Plan Assessment/Plan ASSESSMENT AND PLAN: 1. covid-19 infection, hypoxia, ? pna, chest x-ray negative, ? sepsis, leukocytosis likely secondary to steroids - zosyn -day # 5 - dexamethasone - day # 5 - remdesivir - day # 5 - monitor labs - f/u on final cultures - negative to date - f/u chest x-ray ordered - f/ on results - consider discontinue zosyn if chest x-ray negative 2. continue treatment per primary and consultants 3. Patient has history of hypertension. 4. Diabetes. 5. COVID-19 infection. 6. Dehydration. 7. IV fluids. 8. Malnutrition. 9. Aspiration risk. 10. Elevated D-dimer 11. Allergies, no known drug allergies. 12. Social history is negative. 13. Family history is noncontributory. 14. MAR was noted. 15. Case was discussed with Dr. Fagan. Subjective Constitutional: Reports: fatigue; Denies: fever HEENT: Reports: congestion - mild Respiratory: Reports: shortness of breath - mild Cardiovascular: Denies: chest pain Gastrointestinal/Abdominal: Denies: nausea, vomiting, diarrhea Genitourinary: Denies: dysuria Neurologic: Denies: headache Psychiatric: Denies: depression Skin: Denies: rash Hematologic: Denies: bleeding Musculoskeletal: Denies: pain Allergies: Coded Allergies: No Known Allergies (Unverified , 08/10/20) Objective Last 24 Hour Vital Signs Date Time Temp Pulse Resp B/P (MAP) Pulse Ox O2 Delivery O2 Flow Rate FiO2 08/14/20 12:00 4.0 08/14/20 12:00 68 08/14/20 11:59 Nasal Cannula 4.0 08/14/20 11:57 97.7 70 18 153/78 (103) 100 08/14/20 08:00 97.9 76 20 146/76 (99) 100 08/14/20 08:00 4.0 08/14/20 08:00 Nasal Cannula 4.0 08/14/20 07:48 68 08/14/20 04:00 Nasal Cannula 4.0 08/14/20 04:00 4.0 08/14/20 04:00 97.2 62 18 134/71 (92) 100 08/14/20 03:41 73 08/14/20 00:00 Nasal Cannula 4.0 08/14/20 00:00 97.3 67 18 157/65 (95) 100 08/14/20 00:00 65 08/13/20 20:00 Nasal Cannula 4.0 08/13/20 20:00 4.0 08/13/20 20:00 96.9 75 18 134/78 (96) 100 08/13/20 19:16 83 08/13/20 16:00 Nasal Cannula 4.0 08/13/20 16:00 74 08/13/20 16:00 4.0 08/13/20 16:00 97.7 81 18 148/74 (98) 96 Height (Feet): 6 Height (Inches): 2.00 Weight (Pounds): 160 General Appearance: no acute distress HEENT: normocephalic, atraumatic, anicteric, mucous membranes moist Respiratory/Chest: no respiratory distress, no accessory muscle use, crackles/rales, rhonchi - bilaterally Cardiovascular: normal rate, regular rhythm, no gallop/murmur Abdomen: normal bowel sounds, soft, non tender, no organomegaly, non distended Genitourinary: other Extremities: no cyanosis Skin: no rash 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 Heart size is normal. No significant change Impression: No acute process Microbiology Date/Time Source Procedure Growth Status 08/10/20 14:18 Rectum - Final NO CARBAPENEM-RESISTANT ENTEROBACTERI... Complete 08/10/20 11:08 Blood Blood Culture - Preliminary NO GROWTH AFTER 72 HOURS Resulted 08/10/20 08:41 Nasopharynx SARS-CoV-2 RdRp Gene Assay - Final Complete Laboratory Tests Test 08/13/20 17:55 08/13/20 21:18 08/14/20 03:40 08/14/20 04:30 POC Whole Blood Glucose 136 MG/DL (74-106) H 121 MG/DL (74-106) H White Blood Count 14.2 K/UL (4.8-10.8) H Red Blood Count 4.11 M/UL (4.70-6.10) L Hemoglobin 13.3 G/DL (14.2-18.0) L Hematocrit 40.3 % (42.0-52.0) L Mean Corpuscular Volume 98 FL (80-99) Mean Corpuscular Hemoglobin 32.4 PG (27.0-31.0) H Mean Corpuscular Hemoglobin Concent 33.1 G/DL (32.0-36.0) Red Cell Distribution Width 11.2 % (11.6-14.8) L Platelet Count 211 K/UL (150-450) Mean Platelet Volume 7.9 FL (6.5-10.1) Neutrophils (%) (Auto) % (45.0-75.0) Lymphocytes (%) (Auto) % (20.0-45.0) Monocytes (%) (Auto) % (1.0-10.0) Eosinophils (%) (Auto) % (0.0-3.0) Basophils (%) (Auto) % (0.0-2.0) Differential Total Cells Counted 100 Neutrophils % (Manual) 88 % (45-75) H Lymphocytes % (Manual) 4 % (20-45) L Monocytes % (Manual) 8 % (1-10) Eosinophils % (Manual) 0 % (0-3) Basophils % (Manual) 0 % (0-2) Band Neutrophils 0 % (0-8) Platelet Estimate Adequate Platelet Morphology Normal Les Cells Occasional Sodium Level 141 MMOL/L (136-145) Potassium Level 3.9 MMOL/L (3.5-5.1) Chloride Level 108 MMOL/L (98-107) H Carbon Dioxide Level 27 MMOL/L (21-32) Anion Gap 6 mmol/L (5-15) Blood Urea Nitrogen 21 mg/dL (7-18) H Creatinine 1.3 MG/DL (0.55-1.30) Estimat Glomerular Filtration Rate > 60 mL/min (>60) Glucose Level 112 MG/DL (74-106) H Calcium Level 8.9 MG/DL (8.5-10.1) Direct Bilirubin 0.2 MG/DL (0.0-0.3) Troponin I 0.074 ng/mL (0.000-0.056) C-Reactive Protein, Quantitative 2.4 mg/dL (0.00-0.90) H Pro-B-Type Natriuretic Peptide 376 pg/mL (0-125) H Urine Eosinophils None seen (NONE SEEN) Test 08/14/20 05:46 08/14/20 11:54 POC Whole Blood Glucose 93 MG/DL (74-106) 123 MG/DL (74-106) H Current Medications Medications (Trade) Dose Ordered Sig/Torsten Route PRN Reason Start Time Stop Time Status Last Admin Dose Admin Acetaminophen (Tylenol) 650 mg Q4H PRN ORAL Mild Pain (Pain Scale 1-3) 08/10/20 11:45 09/09/20 11:44 Albuterol Sulfate (Proventil MDI) 2 puff Q4H PRN INH Shortness of Breath 08/10/20 13:30 11/08/20 13:29 Dexamethasone Sodium Phosphate (Decadron 10mg/ ml Inj) 6 mg DAILY IV 08/11/20 09:00 08/20/20 09:01 08/14/20 09:44 Dextrose (Dextrose 50%) 25 ml Q30M PRN IV Hypoglycemia 08/10/20 11:45 11/08/20 11:44 Dextrose (Dextrose 50%) 50 ml Q30M PRN IV Hypoglycemia 08/10/20 11:45 11/08/20 11:44 Dextrose/Sodium Chloride 1,000 ml @ 75 mls/hr [id number] IV 08/10/20 12:45 09/09/20 12:44 08/14/20 04:08 Insulin Aspart (NovoLOG) BEFORE MEALS AND HS SUBQ 08/10/20 21:00 11/08/20 20:59 08/12/20 21:31 Pantoprazole (Protonix) 40 mg DAILY IV 08/11/20 09:00 09/10/20 08:59 08/14/20 09:44 Piperacillin Sod/ Tazobactam Sod 3.375 gm/Sodium Chloride 110 ml @ 27.5 mls/hr EVERY 8 HOURS IVPB 08/10/20 18:00 08/15/20 17:59 08/14/20 13:58 Remdesivir 100 mg/ Sodium Chloride 250 ml @ 250 mls/hr Q24H IV 08/11/20 18:00 08/14/20 18:59 08/13/20 18:12 Rivaroxaban (Xarelto) 15 mg QPM ORAL 08/11/20 16:30 11/09/20 16:29 08/12/20 17:03 Byron Byers MD Aug 14, 2020 15:33
[2020-08-14 16:00] VITALS: BP 126/56
[2020-08-14] MEDS: Xarelto 15mg tab ORAL SCH (16:44)
[2020-08-14] MEDS: Maintenance Dose:Remdesivir 100mg/NS 230ml x 4 Doses IV SCH ×2 (18:05)
--- NOTE | 2020-08-14 19:15 | NUR ---
NURSE NOTES: Received report from MIRTA Valerio. Pt is lying down on bed asleep. No facial grimacing. No signs of distress. IV site are intact and patent. Vital signs are stable. Tolerating 4 L O2. Espino catheter is intact and patent and draining sufficient urine. Bed is locked and in lowest position, bed alarm on. Head of bed is elevated at all times. Will continue to monitor the pt. Will continue with the plan of care.
--- NOTE | 2020-08-14 19:15 | NUR ---
NURSE HAND-OFF REPORT: Important Events on Shift: Patient Status: stable Diet: CCHO M pureed nectar thick liquids Pending Orders: Pending Results/Labs: Pending MD notification: Latest Vital Signs: Temperature 98.4 , Pulse 89 , B/P 126 /56 , Respiratory Rate 16 , O2 SAT 100 , Nasal Cannula, O2 Flow Rate 4.0 . Vital Sign Comment: EKG Rhythm: Sinus Rhythm Rhythm change?: N MD Notified?: N - MD Response: Latest Jacobsen Fall Score: 75 Fall Risk: High Risk Safety Measures: Call light Within Reach, Bed Alarm Zone 2, Side Rails Side Rails x3, Bed position Low and Locked. Fall Precautions: Yellow Socks Yellow Gown Door Sign Patient Fall Education Report given to MIRTA Calero.
[2020-08-14 20:00] VITALS: BP 139/75
--- NOTE | 2020-08-14 22:00 | NUR ---
NURSE NOTES: Initial assessment done. Evening medications given. Vital signs remain stable. Tolerating 4L O2 NC with O2 sat 100%. No sign of distress. Pt is sleeping. Will continue to monitor pt.
[2020-08-15] VITALS: BP 143/81
--- NOTE | 2020-08-15 01:45 | NUR ---
NURSE NOTES: Pt d/c IV. Pt given complete bed bath, gown change, linens change, turned and repositioned. Vitals remain stable. Tolerating 4 L O2 saturating 100%. Espino catheter draining dark ana urine. Will continue to monitor pt.
[2020-08-15 04:00] VITALS: BP 153/84
[2020-08-15 04:53] LABS: HEMATOCRIT 38.4 % (42.0-52.0); HEMOGLOBIN 12.9 G/DL (14.2-18.0); MEAN CORPUSCULAR VOLUME 98 FL (80-99); PLATELET COUNT 227 K/UL (150-450); RED BLOOD COUNT 3.93 M/UL (4.70-6.10); RED CELL DISTRIBUTION WIDTH 11.1 % (11.6-14.8); WHITE BLOOD COUNT 9.8 K/UL (4.8-10.8)
[2020-08-15 05:08] LABS: PHOSPHORUS 2.4 MG/DL (2.5-4.9)
[2020-08-15 05:19] LABS: ALANINE AMINOTRANSFERASE 35 U/L (12-78); ALBUMIN 2.4 G/DL (3.4-5.0); ALBUMIN/GLOBULIN RATIO 0.8 (1.0-2.7); ALKALINE PHOSPHATASE 41 U/L (46-116); ANION GAP 5 mmol/L (5-15); ASPARTATE AMINO TRANSFERASE 34 U/L (15-37); BILIRUBIN,DIRECT 0.2 MG/DL (0.0-0.3); BILIRUBIN,TOTAL 0.5 MG/DL (0.2-1.0); CARBON DIOXIDE 27 MMOL/L (21-32); CHLORIDE 107 MMOL/L (98-107); CREATININE 1.2 MG/DL (0.55-1.30); SODIUM 139 MMOL/L (136-145)
[2020-08-15 05:28] LABS: BLOOD UREA NITROGEN 16 mg/dL (7-18)
[2020-08-15] MEDS: Piperacillin/Tazobactam 3.375 GM in NS 110 ML IVPB SCH ×3 (05:47→21:57)
[2020-08-15] MEDS: NovoLOG Insulin Flexpen SUBQ SCH ×4 (05:52→21:00)
--- NOTE | 2020-08-15 07:25 | NUR ---
NURSE HAND-OFF REPORT: Important Events on Shift:None Patient Status: stable Diet: CCHO, pureed nectar thick Pending Orders: N Pending Results/Labs:N Pending MD notification:N Latest Vital Signs: Temperature 96.9 , Pulse 57 , B/P 153 /84 , Respiratory Rate 14 , O2 SAT 100 , Nasal Cannula, O2 Flow Rate 4.0 . Vital Sign Comment: stable EKG Rhythm: Sinus Rhythm Rhythm change?: N MD Notified?: N - MD Response: Latest Jacobsen Fall Score: 75 Fall Risk: High Risk Safety Measures: Call light Within Reach, Bed Alarm Zone 2, Side Rails Side Rails x3, Bed position Low and Locked. Fall Precautions: Yellow Socks Yellow Gown Door Sign Patient Fall Education Report given to MIRTA Dfuf.
--- NOTE | 2020-08-15 07:30 | NUR ---
NURSE NOTES: Received patient from MIRTA Calero under the care of Dr. Fagan for the admitting dx. of Covid (+) status and PNA. Noted NKA and Full code. On contact and droplet isolation for Covid (+) status. Fall and aspiration precaution observed and maintained at all times. Patient is asleep but easily arousable. Tolerating O2 settings well. No acute distress or discomfort noted. Will continue to monitor.
[2020-08-15] MEDS: D5 1/2NS 1,000 ML IV SCH (07:37)
[2020-08-15 08:00] VITALS: BP 131/72
[2020-08-15] MEDS: Pantoprazole Inj IV SCH (08:24)
[2020-08-15] MEDS: dexAMETHasone 10mg/ml Inj IV SCH (08:25)
--- NOTE | 2020-08-15 08:49 | Nephrology Progress Note ---
Assessment/Plan Problem List: (1) Dehydration (2) JERRY (acute kidney injury) (3) Sepsis (4) COVID-19 (5) Encephalopathy Assessment JERRY- Sepsis, recent Covid infection, possible pneumonia Aspiration risk Acute encephalopathy Hypertension Diabetes mellitus BMI 20.5/protein calorie malnutrition Plan August 15: Labs reviewed. Low magnesium and low phosphorus replacement ordered. Continue per consultants. August 14: No chemistry panel done today. Stable from renal standpoint of view. August 13: Labs reviewed. Renal parameters and electrolytes stable. Continue per ID/pulmonary management. Patient on antibiotics, remdesivir, steroids Continue to hydrate Monitor blood sugar Monitor electrolytes and renal parameters Urine studies Avoid nephrotoxic's Per orders Subjective ROS Limited/Unobtainable: No Constitutional: Reports: malaise Objective Objective Last 24 Hour Vital Signs Date Time Temp Pulse Resp B/P (MAP) Pulse Ox O2 Delivery O2 Flow Rate FiO2 08/15/20 06:40 57 08/15/20 04:00 96.9 63 14 153/84 (107) 100 08/15/20 04:00 4.0 08/15/20 04:00 Nasal Cannula 4.0 08/15/20 00:00 68 08/15/20 00:00 Nasal Cannula 4.0 08/15/20 00:00 98.0 60 14 143/81 (101) 100 08/14/20 20:00 4.0 08/14/20 20:00 Nasal Cannula 4.0 08/14/20 20:00 73 08/14/20 20:00 98.2 66 14 139/75 (96) 100 08/14/20 16:00 4.0 08/14/20 16:00 98.4 80 16 126/56 (79) 100 08/14/20 16:00 Nasal Cannula 4.0 08/14/20 16:00 89 08/14/20 12:00 4.0 08/14/20 12:00 68 08/14/20 11:59 Nasal Cannula 4.0 08/14/20 11:57 97.7 70 18 153/78 (103) 100 Intake and Output 08/14/20 08/15/20 19:00 07:00 Intake Total 1035 ml 1089.65 ml Output Total 800 ml 700 ml Balance 235 ml 389.65 ml Intake Oral 60 ml 60 ml IV Total 975 ml 1029.65 ml Output Urine Total 800 ml 700 ml Current Medications Medications (Trade) Dose Ordered Sig/Torsten Route PRN Reason Start Time Stop Time Status Last Admin Dose Admin Acetaminophen (Tylenol) 650 mg Q4H PRN ORAL Mild Pain (Pain Scale 1-3) 08/10/20 11:45 09/09/20 11:44 Albuterol Sulfate (Proventil MDI) 2 puff Q4H PRN INH Shortness of Breath 08/10/20 13:30 11/08/20 13:29 Dexamethasone Sodium Phosphate (Decadron 10mg/ ml Inj) 6 mg DAILY IV 08/11/20 09:00 08/20/20 09:01 08/15/20 08:25 Dextrose (Dextrose 50%) 25 ml Q30M PRN IV Hypoglycemia 08/10/20 11:45 11/08/20 11:44 Dextrose (Dextrose 50%) 50 ml Q30M PRN IV Hypoglycemia 08/10/20 11:45 11/08/20 11:44 Dextrose/Sodium Chloride 1,000 ml @ 75 mls/hr [id number] IV 08/10/20 12:45 09/09/20 12:44 08/15/20 07:37 Insulin Aspart (NovoLOG) BEFORE MEALS AND HS SUBQ 08/10/20 21:00 11/08/20 20:59 08/14/20 16:43 Magnesium Sulfate 100 ml @ 100 mls/hr Q1H IVPB 08/15/20 08:00 08/15/20 09:59 08/15/20 08:24 Pantoprazole (Protonix) 40 mg DAILY IV 08/11/20 09:00 09/10/20 08:59 08/15/20 08:24 Piperacillin Sod/ Tazobactam Sod 3.375 gm/Sodium Chloride 110 ml @ 27.5 mls/hr EVERY 8 HOURS IVPB 08/14/20 22:00 08/19/20 21:59 08/15/20 05:47 Rivaroxaban (Xarelto) 15 mg QPM ORAL 08/11/20 16:30 11/09/20 16:29 08/14/20 16:44 Sodium Phosphate 15 mm/Sodium Chloride 280 ml @ 70.273 mls/ hr ONCE ONCE IVPB 08/15/20 10:00 08/15/20 13:59 Laboratory Tests 08/14/20 11:54: POC Whole Blood Glucose 123H 08/14/20 16:29: POC Whole Blood Glucose 153H 08/14/20 21:27: POC Whole Blood Glucose 116H 08/15/20 03:55: White Blood Count 9.8, Red Blood Count 3.93L, Hemoglobin 12.9L, Hematocrit 38.4L , Mean Corpuscular Volume 98, Mean Corpuscular Hemoglobin 32.9H, Mean Corpuscul ar Hemoglobin Concent 33.7, Red Cell Distribution Width 11.1L, Platelet Count 227, Mean Platelet Volume 7.8, Neutrophils (%) (Auto) , Lymphocytes (%) (Auto) , Monocytes (%) (Auto) , Eosinophils (%) (Auto) , Basophils (%) (Auto) , Neutr ophils % (Manual) [Pending], Lymphocytes % (Manual) [Pending], Platelet Estimate [Pending], Platelet Morphology [Pending], Sodium Level 139, Potassium Level 4.0, Chloride Level 107, Carbon Dioxide Level 27, Anion Gap 5, Blood Urea Nitrogen 16, Creatinine 1.2, Estimat Glomerular Filtration Rate > 60, Glucose Level 89, Calcium Level 9.0, Phosphorus Level 2.4L, Magnesium Level 1.7L, Total Bilirubin 0.5, Direct Bilirubin 0.2, Gamma Glutamyl Transpeptidase 28, Aspartate Amino Transf (AST/SGOT) 34, Alanine Aminotransferase (ALT/SGPT) 35, Alkaline Phosphatase 41L, Total Protein 5.6L, Albumin 2.4L, Globulin 3.2, Albumin/Globulin Ratio 0.8L 08/15/20 05:38: POC Whole Blood Glucose 76 08/15/20 05:52: POC Whole Blood Glucose 99 Height (Feet): 6 Height (Inches): 2.00 Weight (Pounds): 160 General Appearance: no apparent distress Respiratory/Chest: decreased breath sounds Abdomen: soft Objective No change Eyad Hunt MD Aug 15, 2020 08:49
--- NOTE | 2020-08-15 09:40 | NUR ---
NURSE NOTES: Patient continues to be asleep. No sign of distress noted. 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 NNO at this time. Will continue with current plan of care.
--- NOTE | 2020-08-15 09:42 | NUR ---
RADIOLOGY DEPT., CHEST X-RAY DONE.-P.DYE
[2020-08-15] MEDS ORDERED: Sodium Phosphate 15 MM in NS 275 ML IVPB ONE (10:00)
--- NOTE | 2020-08-15 10:47 | Pulmonology Progress Note ---
Subjective ROS Limited/Unobtainable: No Constitutional: Reports: fatigue; Denies: fever Gastrointestinal/Abdominal: Denies: nausea, vomiting, diarrhea Psychiatric: Denies: depression Skin: Denies: rash Musculoskeletal: Denies: pain Allergies: Coded Allergies: No Known Allergies (Unverified , 08/10/20) Subjective in SDU on O2 4 L via NC, no resp distress CXR 08/12 NGT remains in isolation leuk resolved, no fevers on steroids completed 5 days of Remdesivivr creat down to 1.2 , remains stable Mg-1.7 P-2.4 minimal troponin elevation 08/13 and 08/14 pt ate some breakfast with full assistance this am Objective Last 24 Hour Vital Signs Date Time Temp Pulse Resp B/P (MAP) Pulse Ox O2 Delivery O2 Flow Rate FiO2 08/15/20 08:00 4.0 08/15/20 08:00 Nasal Cannula 4.0 08/15/20 08:00 69 08/15/20 08:00 97.2 73 15 131/72 (91) 100 08/15/20 06:40 57 08/15/20 04:00 96.9 63 14 153/84 (107) 100 08/15/20 04:00 4.0 08/15/20 04:00 Nasal Cannula 4.0 08/15/20 00:00 68 08/15/20 00:00 Nasal Cannula 4.0 08/15/20 00:00 98.0 60 14 143/81 (101) 100 08/14/20 20:00 4.0 08/14/20 20:00 Nasal Cannula 4.0 08/14/20 20:00 73 08/14/20 20:00 98.2 66 14 139/75 (96) 100 08/14/20 16:00 4.0 08/14/20 16:00 98.4 80 16 126/56 (79) 100 08/14/20 16:00 Nasal Cannula 4.0 08/14/20 16:00 89 08/14/20 12:00 4.0 08/14/20 12:00 68 08/14/20 11:59 Nasal Cannula 4.0 08/14/20 11:57 97.7 70 18 153/78 (103) 100 Intake and Output 08/14/20 08/15/20 19:00 07:00 Intake Total 1035 ml 1089.65 ml Output Total 800 ml 700 ml Balance 235 ml 389.65 ml Intake Oral 60 ml 60 ml IV Total 975 ml 1029.65 ml Output Urine Total 800 ml 700 ml Objective General Appearance: cachetic, chronically ill looking, bedridden frail male, confused Lines, tubes and drains: peripheral HEENT: normocephalic, atraumatic, anicteric, on O2 via NC Neck: non-tender, normal inspection, trachea midline Respiratory/Chest: no accessory muscle use; few isolated rhonchi Cardiovascular/Chest: regular rhythm, tele-SR Abdomen: normal bowel sounds, non tender, soft Extremities: no calf tenderness, normal capillary refill, no edema Neurologic: abnormal gait, confused, poorly responsive, moves all extremities Musculoskeletal: atrophy - BLE Laboratory Tests 08/14/20 11:54: POC Whole Blood Glucose 123H 08/14/20 16:29: POC Whole Blood Glucose 153H 08/14/20 21:27: POC Whole Blood Glucose 116H 08/15/20 03:55: White Blood Count 9.8, Red Blood Count 3.93L, Hemoglobin 12.9L, Hematocrit 38.4L , Mean Corpuscular Volume 98, Mean Corpuscular Hemoglobin 32.9H, Mean Corpuscular Hemoglobin Concent 33.7, Red Cell Distribution Width 11.1L, Platelet Count 227, Mean Platelet Volume 7.8, Neutrophils (%) (Auto) , Lymphocytes (%) (Auto) , Monocytes (%) (Auto) , Eosinophils (%) (Auto) , Basophils (%) (Auto) , Differential Total Cells Counted 100, Neutrophils % (Manual) 86H, Lymphocytes % (Manual) 8L, Monocytes % (Manual) 6, Eosinophils % (Manual) 0, Basophils % (Manual) 0, Band Neutrophils 0, Platelet Estimate Adequate, Platelet Morphology Normal, Red Blood Cell Morphology Normal, Sodium Level 139, Potassium Level 4.0, Chloride Level 107, Carbon Dioxide Level 27, Anion Gap 5, Blood Urea Nitrogen 16, Creatinine 1.2, Estimat Glomerular Filtration Rate > 60, Glucose Level 89, Calcium Level 9.0, Phosphorus Level 2.4L, Magnesium Level 1.7L, Total Bilirubin 0.5, Direct Bilirubin 0.2, Gamma Glutamyl Transpeptidase 28, Aspartate Amino T ransf (AST/SGOT) 34, Alanine Aminotransferase (ALT/SGPT) 35, Alkaline Phosphatase 41L, Total Protein 5.6L, Albumin 2.4L, Globulin 3.2, Albumin/Globulin Ratio 0.8L 08/15/20 05:38: POC Whole Blood Glucose 76 08/15/20 05:52: POC Whole Blood Glucose 99 Current Medications Medications (Trade) Dose Ordered Sig/Torsten Route PRN Reason Start Time Stop Time Status Last Admin Dose Admin Acetaminophen (Tylenol) 650 mg Q4H PRN ORAL Mild Pain (Pain Scale 1-3) 08/10/20 11:45 09/09/20 11:44 Albuterol Sulfate (Proventil MDI) 2 puff Q4H PRN INH Shortness of Breath 08/10/20 13:30 11/08/20 13:29 Dexamethasone Sodium Phosphate (Decadron 10mg/ ml Inj) 6 mg DAILY IV 08/11/20 09:00 08/20/20 09:01 08/15/20 08:25 Dextrose (Dextrose 50%) 25 ml Q30M PRN IV Hypoglycemia 08/10/20 11:45 11/08/20 11:44 Dextrose (Dextrose 50%) 50 ml Q30M PRN IV Hypoglycemia 08/10/20 11:45 11/08/20 11:44 Dextrose/Sodium Chloride 1,000 ml @ 75 mls/hr [id number] IV 08/10/20 12:45 09/09/20 12:44 08/15/20 07:37 Insulin Aspart (NovoLOG) BEFORE MEALS AND HS SUBQ 08/10/20 21:00 11/08/20 20:59 08/14/20 16:43 Pantoprazole (Protonix) 40 mg DAILY IV 08/11/20 09:00 09/10/20 08:59 08/15/20 08:24 Piperacillin Sod/ Tazobactam Sod 3.375 gm/Sodium Chloride 110 ml @ 27.5 mls/hr EVERY 8 HOURS IVPB 08/14/20 22:00 08/19/20 21:59 08/15/20 05:47 Rivaroxaban (Xarelto) 15 mg QPM ORAL 08/11/20 16:30 11/09/20 16:29 08/14/20 16:44 Sodium Phosphate 15 mm/Sodium Chloride 280 ml @ 70.273 mls/ hr ONCE ONCE IVPB 08/15/20 10:00 08/15/20 13:59 08/15/20 10:00 Assessment/Plan Assessment/Plan ASSESSMENT Probably sepsis Recent COVID infection/ never treated Probable PNA Aspiration risk Elevated troponin Bradycardia Paroxysmal atrial fibrillation Acute encephalopathy Elevated D dimer JERRY -resolved Proteinuria, HTN DM Protein calorie malnutrition PLAN OF CARE AC isolation room titrate Fio2 to keep sat above 92%, on 4 L O2 via NC Albuterol via MDI prn empiric abx, BCX 08/10 NGTD steroids , completed Remdesivvir mild leukocytosis, probably due to steroids -resolved ID follows recent COVID 19 at [facility], not treated at that time, closely monitor resp status CRP and ferritin trending down CXR 08/12 NGT for acute CP pathology will f/up with CXR today aspiration precautions minimal troponin elevation 08/13 and 08/14 cardio eval appreciates PAF rate controlled on Xarelto already at night ericka in high 50th, during the day no ericka closely monitor renal parameters, nephro eval appreciated continue hydration creat down to 1.2, remains stable Mg and P replaced as per nephro recs BSSE done, but pt not participated diet texture as per ST recs not eating, declined NGT aspiration precautions continue IVF, BP and BS management GI prophylaxis will consider GI eval protein suppl as per RD recs supportive care full code case discussed and evaluated by supervising physician Orly Dick NP Aug 15, 2020 10:47
--- NOTE | 2020-08-15 11:00 | NUR ---
NURSE NOTES: Received order from Dr. Byers to perform a rapid Covid-19 nasopharyngeal swab on patient. Noted and carried out.
[2020-08-15 11:58] VITALS: BP 143/77
--- NOTE | 2020-08-15 13:00 | NUR ---
NURSE NOTES: Patient able to consume 100% of lunch meal with assistance. No distress or discomfort noted. No cheeking or aspiration noted. Seen and examined by ADOLFO Mesa at this time. Will continue to monitor.
--- NOTE | 2020-08-15 13:13 | Cardiac Electrophysiology PN ---
Assessment/Plan Assessment/Plan 1. Troponin elevation. The first troponin was negative. FU trponins mildly elevated at 0.08 and 0.07 EKG is very low voltage, it is nondiagnostic. Patient is already on Xarelto 15 mg daily 2. Atrial fibrillation. Again low voltage. Rate is controlled. Patient is already on Xarelto. 3. Low-voltage QRS, likely due to patient's moderate pericardial effusion, but clinically no tamponade physiology. 4. COVID infection, finished remdesivir. On IV antibiotic as well as Xarelto. 5. History of diabetes. 6. Hypoxemia. SRIRAM RN Subjective Subjective HAd atrial fib last night. In isolation for Covid. Completed Remdesevir, On Puree diet now. Had Rapid Covid today Objective Last 24 Hour Vital Signs Date Time Temp Pulse Resp B/P (MAP) Pulse Ox O2 Delivery O2 Flow Rate FiO2 08/15/20 12:00 71 08/15/20 11:58 97.1 69 17 143/77 (99) 97 08/15/20 08:00 4.0 08/15/20 08:00 Nasal Cannula 4.0 08/15/20 08:00 69 08/15/20 08:00 97.2 73 15 131/72 (91) 100 08/15/20 06:40 57 08/15/20 04:00 96.9 63 14 153/84 (107) 100 08/15/20 04:00 4.0 08/15/20 04:00 Nasal Cannula 4.0 08/15/20 00:00 68 08/15/20 00:00 Nasal Cannula 4.0 08/15/20 00:00 98.0 60 14 143/81 (101) 100 08/14/20 20:00 4.0 08/14/20 20:00 Nasal Cannula 4.0 08/14/20 20:00 73 08/14/20 20:00 98.2 66 14 139/75 (96) 100 08/14/20 16:00 4.0 08/14/20 16:00 98.4 80 16 126/56 (79) 100 08/14/20 16:00 Nasal Cannula 4.0 08/14/20 16:00 89 Intake and Output 08/14/20 08/15/20 19:00 07:00 Intake Total 1035 ml 1089.65 ml Output Total 800 ml 700 ml Balance 235 ml 389.65 ml Intake Oral 60 ml 60 ml IV Total 975 ml 1029.65 ml Output Urine Total 800 ml 700 ml Laboratory Tests Test 08/14/20 16:29 08/14/20 21:27 08/15/20 03:55 08/15/20 05:38 POC Whole Blood Glucose 153 MG/DL (74-106) H 116 MG/DL (74-106) H 76 MG/DL (74-106) White Blood Count 9.8 K/UL (4.8-10.8) Red Blood Count 3.93 M/UL (4.70-6.10) L Hemoglobin 12.9 G/DL (14.2-18.0) L Hematocrit 38.4 % (42.0-52.0) L Mean Corpuscular Volume 98 FL (80-99) Mean Corpuscular Hemoglobin 32.9 PG (27.0-31.0) H Mean Corpuscular Hemoglobin Concent 33.7 G/DL (32.0-36.0) Red Cell Distribution Width 11.1 % (11.6-14.8) L Platelet Count 227 K/UL (150-450) Mean Platelet Volume 7.8 FL (6.5-10.1) Neutrophils (%) (Auto) % (45.0-75.0) Lymphocytes (%) (Auto) % (20.0-45.0) Monocytes (%) (Auto) % (1.0-10.0) Eosinophils (%) (Auto) % (0.0-3.0) Basophils (%) (Auto) % (0.0-2.0) Differential Total Cells Counted 100 Neutrophils % (Manual) 86 % (45-75) H Lymphocytes % (Manual) 8 % (20-45) L Monocytes % (Manual) 6 % (1-10) Eosinophils % (Manual) 0 % (0-3) Basophils % (Manual) 0 % (0-2) Band Neutrophils 0 % (0-8) Platelet Estimate Adequate Platelet Morphology Normal Red Blood Cell Morphology Normal Sodium Level 139 MMOL/L (136-145) Potassium Level 4.0 MMOL/L (3.5-5.1) Chloride Level 107 MMOL/L (98-107) Carbon Dioxide Level 27 MMOL/L (21-32) Anion Gap 5 mmol/L (5-15) Blood Urea Nitrogen 16 mg/dL (7-18) Creatinine 1.2 MG/DL (0.55-1.30) Estimat Glomerular Filtration Rate > 60 mL/min (>60) Glucose Level 89 MG/DL (74-106) Calcium Level 9.0 MG/DL (8.5-10.1) Phosphorus Level 2.4 MG/DL (2.5-4.9) L Magnesium Level 1.7 MG/DL (1.8-2.4) L Total Bilirubin 0.5 MG/DL (0.2-1.0) Direct Bilirubin 0.2 MG/DL (0.0-0.3) Gamma Glutamyl Transpeptidase 28 U/L (5-85) Aspartate Amino Transf (AST/SGOT) 34 U/L (15-37) Alanine Aminotransferase (ALT/SGPT) 35 U/L (12-78) Alkaline Phosphatase 41 U/L (46-116) L Total Protein 5.6 G/DL (6.4-8.2) L Albumin 2.4 G/DL (3.4-5.0) L Globulin 3.2 g/dL Albumin/Globulin Ratio 0.8 (1.0-2.7) L Test 08/15/20 05:52 08/15/20 11:56 POC Whole Blood Glucose 99 MG/DL (74-106) 140 MG/DL (74-106) H Objective HEAD AND NECK: Showed no JVD. LUNGS: Coarse rhonchi. CARDIOVASCULAR: Shows irregular S1 and S2 with no gallop or murmur. ABDOMEN: Soft. EXTREMITIES: No pitting edema. Ronald Baer MD Aug 15, 2020 13:13
--- NOTE | 2020-08-15 13:15 | NUR ---
NURSE NOTES: LAB results for the Covid-19 rapid test came back positive. Patient remains Covid-19 positive status. Will continue current plan of care.
--- NOTE | 2020-08-15 13:40 | NUR ---
NURSE NOTES: Made JETT Dick regarding eating and appetite and agreed with new order to D/C current IV fluid. Noted and carried out. Will continue to monitor.
--- NOTE | 2020-08-15 14:28 | NUR ---
DISCHARGE PLANNING: NOTE CHICA S/W JEREMIAS AT [facility]. SHE CAN ACCOMMODATE A COVID POSITIVE PT. CLINICALS FAXED TO [phone] DC REQUESTED FROM MD BESS Addendum: 08/15/20 at 1732 by Michelle Hargrove CM [facility] AUTH # [id number] AUTH FOR SNF [id number] Addendum: 08/15/20 at 1740 by Michelle Hargrove CM PER DR FARIAS PT IS NOT READY FOR DC D/T 4L/NC CHICA MADE HIM AWARE TAHT SNF CAN ACCOMMODATE WITH 4L/NC AND COVID POSITIVE.
--- NOTE | 2020-08-15 14:30 | NUR ---
CASE MANAGEMENT: REVIEW 08/15/2020 SI:SEPSIS. COVID PNA. VS: T 97.1 HR 69 RR 17 B/P 143/77 SATS 97% ON 4L/NC LABS: GLU 140 IS;ZOSYN IV Q8H DECADRON IV QD XARELTO PO QPM INSULIN ASPART SUBQ AC/HS SDU DCP: SNF
--- NOTE | 2020-08-15 14:37 | NUR ---
INSURANCE CLINICALS FAXED TO IPA: [facility] P: [phone] F: [phone] (FAX CLINICALS)
[2020-08-15 16:00] VITALS: BP 126/71
--- NOTE | 2020-08-15 16:21 | Diagnostic Imaging Report ---
Indication: Shortness of breath Technique: One view of the chest Comparison: 08/12/2020 Findings: Lungs pleural spaces are clear. The heart is borderline enlarged. The aorta is tortuous ectatic and calcified. No significant interim change Impression: No acute process
[2020-08-15] MEDS: Xarelto 15mg tab ORAL SCH (17:04)
--- NOTE | 2020-08-15 19:25 | NUR ---
NURSE HAND-OFF REPORT: Important Events on Shift:Covid rapid test result (+) Patient Status: Stable Diet: Pureed nectar thick Pending Orders: Pending Results/Labs: Pending MD notification: Latest Vital Signs: Temperature 98.1 , Pulse 72 , B/P 126 /71 , Respiratory Rate 18 , O2 SAT 99 , Nasal Cannula, O2 Flow Rate 4.0 . Vital Sign Comment: EKG Rhythm: Sinus Rhythm Rhythm change?: N MD Notified?: N - MD Response: Latest Jacobsen Fall Score: 75 Fall Risk: High Risk Safety Measures: Call light Within Reach, Bed Alarm Zone 2, Side Rails Side Rails x3, Bed position Low and Locked. Fall Precautions: Yellow Socks Yellow Gown Door Sign Patient Fall Education Report given to MIRTA Valencia.
--- NOTE | 2020-08-15 19:26 | NUR ---
NURSE NOTES: Received report from MIRTA Roger. Pt A/Ox4 responsive to verbal and tactile stimuli. On 4L N/C saturating 100%. 5-lead EKG shows SR. Vitals WNL. Afebrile. Espino draining well to gravity. Made aware of alterations in skin integrity. Call light within reach. Bed placed in lowest and locked position. Bed alarm on. Will continue monitoring.
[2020-08-15 20:00] VITALS: BP 135/70
[2020-08-16] VITALS (7 sets, daily range): BP systolic 109–148; BP diastolic 63–85
--- NOTE | 2020-08-16 03:15 | NUR ---
NURSE NOTES: Pt cardenas leaking. Pt. claims he feels the urge to urinate. Deflated 8cc of fluid, inserted further, and inflated 10 cc in balloon. Possible request for condom catheter if leaking continues. Will monitor. Encouraged pt to spit for sputum culture. Pt noncompliant and confused despite encouragement. Offered liquids as tolerated. In stable condition.
[2020-08-16] MEDS: Piperacillin/Tazobactam 3.375 GM in NS 110 ML IVPB SCH (05:13)
[2020-08-16] MEDS: NovoLOG Insulin Flexpen SUBQ SCH ×4 (05:17→21:00)
--- NOTE | 2020-08-16 05:49 | NUR ---
NURSE NOTES: Pt blood sugar glucose 80 mg/dl this morning. Encouraged thickened apple juice. Pt able to drink but does so slowly. In stable condition otherwise.
--- NOTE | 2020-08-16 07:00 | NUR ---
NURSE HAND-OFF REPORT: Important Events on Shift:No changes Patient Status: Stable Diet: [facility] Pending Orders: N Pending Results/Labs: N Pending MD notification: Tricia Fagan for Chemistry repeat Latest Vital Signs: Temperature 97.6 , Pulse 92 , B/P 148 /76 , Respiratory Rate 20 , O2 SAT 100 , Nasal Cannula, O2 Flow Rate 4.0 . Vital Sign Comment: WNL. Afebrile EKG Rhythm: Sinus Rhythm Rhythm change?: N MD Notified?: N - MD Response: Latest Jacobsen Fall Score: 75 Fall Risk: High Risk Safety Measures: Call light Within Reach, Bed Alarm Zone 1, Side Rails Side Rails x3, Bed position Low and Locked. Fall Precautions: Yellow Socks Yellow Gown Door Sign Patient Fall Education Report given to MIRTA Pradhan.
--- NOTE | 2020-08-16 07:09 | NUR ---
NURSE NOTES: Received report from MIRTA Valencia. Patient is resting in bed, in stable condition. No s/sx of SOB, breathing is even and unlabored, patent is on 4LNC, SpO2 95%. Patient denies any presence of pain or discomfort at this time. Bed is in lowest position, brakes engaged. Call light is kept within easy reach. Will continue to monitor patient.
--- NOTE | 2020-08-16 08:25 | Pulmonology Progress Note ---
Subjective ROS Limited/Unobtainable: No Constitutional: Reports: fatigue; Denies: fever Gastrointestinal/Abdominal: Denies: nausea, vomiting, diarrhea Psychiatric: Denies: depression Skin: Denies: rash Musculoskeletal: Denies: pain Allergies: Coded Allergies: No Known Allergies (Unverified , 08/10/20) Subjective in SDU now on 3 L via NC ; no resp distress CXR 08/12 NGT remains in isolation leuk resolved, no fevers on steroids completed 5 days of Remdesivivr creat down to 1.2 , remains stable minimal troponin elevation 08/13 and 08/14 eating labs still pending for this am Objective Last 24 Hour Vital Signs Date Time Temp Pulse Resp B/P (MAP) Pulse Ox O2 Delivery O2 Flow Rate FiO2 08/16/20 07:54 96.6 65 20 140/73 (95) 100 08/16/20 04:00 4.0 08/16/20 04:00 Nasal Cannula 4.0 08/16/20 04:00 97.6 92 20 148/76 (100) 100 08/16/20 03:57 64 08/16/20 00:00 Nasal Cannula 4.0 08/16/20 00:00 98.3 72 20 143/85 (104) 100 08/15/20 23:33 70 08/15/20 20:00 97.9 73 18 135/70 (91) 100 08/15/20 20:00 Nasal Cannula 4.0 08/15/20 20:00 4.0 08/15/20 19:28 72 08/15/20 16:00 73 08/15/20 16:00 4.0 08/15/20 16:00 Nasal Cannula 4.0 08/15/20 16:00 98.1 72 18 126/71 (89) 99 08/15/20 12:00 4.0 08/15/20 12:00 71 08/15/20 12:00 Nasal Cannula 4.0 08/15/20 11:58 97.1 69 17 143/77 (99) 97 Intake and Output 08/15/20 08/16/20 19:00 07:00 Intake Total 150 ml 507.6 ml Output Total 700 ml 500 ml Balance -550 ml 7.6 ml Intake Oral 150 ml 350 ml IV Total 157.6 ml Output Urine Total 700 ml 500 ml Objective General Appearance: cachetic, chronically ill looking, bedridden frail male, confused Lines, tubes and drains: peripheral HEENT: normocephalic, atraumatic, anicteric, on O2 via NC Neck: non-tender, normal inspection, trachea midline Respiratory/Chest: no accessory muscle use; few isolated rhonchi Cardiovascular/Chest: regular rhythm, tele-SR Abdomen: normal bowel sounds, non tender, soft Extremities: no calf tenderness, normal capillary refill, no edema Neurologic: abnormal gait, confused, poorly responsive, moves all extremities Musculoskeletal: atrophy - BLE Microbiology Date/Time Source Procedure Growth Status 08/15/20 11:30 Nasopharynx SARS-CoV-2 RdRp Gene Assay - Final Complete Laboratory Tests 08/15/20 11:56: POC Whole Blood Glucose 140H 08/15/20 17:03: POC Whole Blood Glucose 132H 08/15/20 21:58: POC Whole Blood Glucose 110H 08/16/20 05:16: POC Whole Blood Glucose 80 Current Medications Medications (Trade) Dose Ordered Sig/Torsten Route PRN Reason Start Time Stop Time Status Last Admin Dose Admin Acetaminophen (Tylenol) 650 mg Q4H PRN ORAL Mild Pain (Pain Scale 1-3) 08/10/20 11:45 09/09/20 11:44 Albuterol Sulfate (Proventil MDI) 2 puff Q4H PRN INH Shortness of Breath 08/10/20 13:30 11/08/20 13:29 Dexamethasone Sodium Phosphate (Decadron 10mg/ ml Inj) 6 mg DAILY IV 08/11/20 09:00 08/20/20 09:01 08/15/20 08:25 Dextrose (Dextrose 50%) 25 ml Q30M PRN IV Hypoglycemia 08/10/20 11:45 11/08/20 11:44 Dextrose (Dextrose 50%) 50 ml Q30M PRN IV Hypoglycemia 08/10/20 11:45 11/08/20 11:44 Insulin Aspart (NovoLOG) BEFORE MEALS AND HS SUBQ 08/10/20 21:00 11/08/20 20:59 08/15/20 11:30 Pantoprazole (Protonix) 40 mg DAILY IV 08/11/20 09:00 09/10/20 08:59 08/15/20 08:24 Piperacillin Sod/ Tazobactam Sod 3.375 gm/Sodium Chloride 110 ml @ 27.5 mls/hr EVERY 8 HOURS IVPB 08/14/20 22:00 08/19/20 21:59 08/16/20 05:13 Rivaroxaban (Xarelto) 15 mg QPM ORAL 08/11/20 16:30 11/09/20 16:29 08/15/20 17:04 Assessment/Plan Assessment/Plan ASSESSMENT Probably sepsis Recent COVID infection/ never treated Probable PNA Aspiration risk Elevated troponin Bradycardia Paroxysmal atrial fibrillation Acute encephalopathy Elevated D dimer JERRY -resolved Proteinuria, HTN DM Protein calorie malnutrition PLAN OF CARE AC isolation room titrate Fio2 to keep sat above 92%, on 4 L O2 via NC Albuterol via MDI prn empiric abx, BCX 08/10 NGTD steroids /Day #7 completed Remdesivir for 5 days mild leukocytosis, probably due to steroids -resolved ID follows recent COVID 19 at [facility], not treated at that time, closely monitor resp status CRP and ferritin trending down CXR 08/12 NGT for acute CP pathology CXR 08/15 no accuse process will dc Zosyn aspiration precautions minimal troponin elevation 08/13 and 08/14 cardio eval appreciates PAF rate controlled on Xarelto already at night ericka in high 50th, during the day no ericka closely monitor renal parameters, nephro eval appreciated continue hydration creat down to 1.2, remains stable Mg and P replaced as per nephro recs BSSE done, but pt not participated diet texture as per ST recs now eating, declined NGT aspiration precautions s/p IVF, BP and BS management GI prophylaxis protein suppl as per RD recs supportive care full code dc today to SNF had 5 days of Remdesevir and 7 days of steroids case discussed and evaluated by supervising physician Orly Dick NP Aug 16, 2020 08:25
[2020-08-16] MEDS: dexAMETHasone 10mg/ml Inj IV SCH (08:30)
[2020-08-16] MEDS: Pantoprazole Inj IV SCH (08:30)
--- NOTE | 2020-08-16 08:30 | NUR ---
NURSE NOTES: Ms. Dick, HOSPICE MANAGER seen and examined patient at beside, this nurse informed HOSPICE MANAGER that patient has been afebrile and is now 3L NC, also patient has been non-productive and unable to collect sputum. Ms. Dick acknowledged and gave no new orders at this time. Will continue to monitor patient.
[2020-08-16] MEDS ORDERED: ALBUTEROL SULF8.5 G1 INH (08:51)
--- NOTE | 2020-08-16 10:00 | NUR ---
NURSE NOTES: Patient noted with discharge order per Ms. Kapil NP. Called and spoke with Ms. Dick to clarify orders regarding Dexamethasone IV and Protonix IVP. Per Ms. Kapil NP okay to continue while in hospital, can be discontinued once discharged to SNF. Noted.
--- NOTE | 2020-08-16 10:10 | NUR ---
NURSE NOTES: Patient noted with urinary cardenas catheter, called and spoke with Ms. Dick PUBLIC SPEAKING PROFESSOR if would like to discharge patient with urinary cardenas catheter, per Ms. Dick discontinue urinary cardenas catheter before discharge to SNF. Noted. Order entered, noted, and carried out. Will continue to monitor patient.
[2020-08-16 10:55] LABS: HEMATOCRIT 37.5 % (42.0-52.0); HEMOGLOBIN 12.6 G/DL (14.2-18.0); MEAN CORPUSCULAR VOLUME 97 FL (80-99); PLATELET COUNT 229 K/UL (150-450); RED BLOOD COUNT 3.86 M/UL (4.70-6.10); RED CELL DISTRIBUTION WIDTH 11.3 % (11.6-14.8); WHITE BLOOD COUNT 10.2 K/UL (4.8-10.8)
[2020-08-16 11:05] LABS: ANION GAP 5 mmol/L (5-15); BLOOD UREA NITROGEN 17 mg/dL (7-18); CALCIUM 8.7 MG/DL (8.5-10.1); CARBON DIOXIDE 27 MMOL/L (21-32); CHLORIDE 106 MMOL/L (98-107); CREATININE 1.1 MG/DL (0.55-1.30); PHOSPHORUS 2.2 MG/DL (2.5-4.9); POTASSIUM 3.5 MMOL/L (3.5-5.1); SODIUM 138 MMOL/L (136-145)
--- NOTE | 2020-08-16 11:39 | NUR ---
*-*DISCHARGE PLANNING*-* PATIENT HAS BEEN REFERRED TO: [facility] P: [phone] S/W LAKESHA, PATIENT IS NOT ON BED HOLD, NO ROOMS AVAILABLE TILL TUESDAY.
--- NOTE | 2020-08-16 12:04 | Nephrology Progress Note ---
Assessment/Plan Problem List: (1) Dehydration (2) JERRY (acute kidney injury) (3) Sepsis (4) COVID-19 (5) Encephalopathy Assessment JERRY- Sepsis, recent Covid infection, possible pneumonia Aspiration risk Acute encephalopathy Hypertension Diabetes mellitus BMI 20.5/protein calorie malnutrition Plan August 16: Labs reviewed. Low phosphorus replaced. Stable from renal standpoint of view. Due for discharge to SNF today as he received 5 days of remdesivir and 7 days of steroids August 15: Labs reviewed. Low magnesium and low phosphorus replacement ordered. Continue per consultants. August 14: No chemistry panel done today. Stable from renal standpoint of view. August 13: Labs reviewed. Renal parameters and electrolytes stable. Continue per ID/pulmonary management. Patient on antibiotics, remdesivir, steroids Continue to hydrate Monitor blood sugar Monitor electrolytes and renal parameters Urine studies Avoid nephrotoxic's Per orders Subjective ROS Limited/Unobtainable: No Constitutional: Reports: malaise Objective Objective Last 24 Hour Vital Signs Date Time Temp Pulse Resp B/P (MAP) Pulse Ox O2 Delivery O2 Flow Rate FiO2 08/16/20 08:49 3.0 08/16/20 08:00 Nasal Cannula 4.0 08/16/20 08:00 71 08/16/20 07:54 96.6 65 20 140/73 (95) 100 08/16/20 04:00 4.0 08/16/20 04:00 Nasal Cannula 4.0 08/16/20 04:00 97.6 92 20 148/76 (100) 100 08/16/20 03:57 64 08/16/20 00:00 Nasal Cannula 4.0 08/16/20 00:00 98.3 72 20 143/85 (104) 100 08/15/20 23:33 70 08/15/20 20:00 97.9 73 18 135/70 (91) 100 08/15/20 20:00 Nasal Cannula 4.0 08/15/20 20:00 4.0 08/15/20 19:28 72 08/15/20 16:00 73 08/15/20 16:00 4.0 08/15/20 16:00 Nasal Cannula 4.0 08/15/20 16:00 98.1 72 18 126/71 (89) 99 Intake and Output 08/15/20 08/16/20 19:00 07:00 Intake Total 150 ml 507.6 ml Output Total 700 ml 500 ml Balance -550 ml 7.6 ml Intake Oral 150 ml 350 ml IV Total 157.6 ml Output Urine Total 700 ml 500 ml Current Medications Medications (Trade) Dose Ordered Sig/Torsten Route PRN Reason Start Time Stop Time Status Last Admin Dose Admin Acetaminophen (Tylenol) 650 mg Q4H PRN ORAL Mild Pain (Pain Scale 1-3) 08/10/20 11:45 09/09/20 11:44 Albuterol Sulfate (Proventil MDI) 2 puff Q4H PRN INH Shortness of Breath 08/10/20 13:30 11/08/20 13:29 Dexamethasone Sodium Phosphate (Decadron 10mg/ ml Inj) 6 mg DAILY IV 08/11/20 09:00 08/20/20 09:01 08/16/20 08:30 Dextrose (Dextrose 50%) 25 ml Q30M PRN IV Hypoglycemia 08/10/20 11:45 11/08/20 11:44 Dextrose (Dextrose 50%) 50 ml Q30M PRN IV Hypoglycemia 08/10/20 11:45 11/08/20 11:44 Insulin Aspart (NovoLOG) BEFORE MEALS AND HS SUBQ 08/10/20 21:00 11/08/20 20:59 08/15/20 11:30 Pantoprazole (Protonix) 40 mg DAILY IV 08/11/20 09:00 09/10/20 08:59 08/16/20 08:30 Rivaroxaban (Xarelto) 15 mg QPM ORAL 08/11/20 16:30 11/09/20 16:29 08/15/20 17:04 Laboratory Tests 08/15/20 17:03: POC Whole Blood Glucose 132H 08/15/20 21:58: POC Whole Blood Glucose 110H 08/16/20 05:16: POC Whole Blood Glucose 80 08/16/20 10:30: White Blood Count 10.2, Red Blood Count 3.86L, Hemoglobin 12.6L, Hematocrit 37.5L, Mean Corpuscular Volume 97, Mean Corpuscular Hemoglobin 32.6H, Mean Corpuscular Hemoglobin Concent 33.5, Red Cell Distribution Width 11.3L, Platelet Count 229, Mean Platelet Volume 8.0, Neutrophils (%) (Auto) , Lymphocytes (%) (Auto) , Monocytes (%) (Auto) , Eosinophils (%) (Auto) , Basophils (%) (Auto) , Differential Total Cells Counted 100, Neutrophils % (Manual) 90H, Lymphocytes % (Manual) 8L, Monocytes % (Manual) 2, Platelet Estimate [Pending], Platelet Morphology Normal, Red Blood Cell Morphology Normal, Sodium Level 138, Potassium Level 3.5, Chloride Level 106, Carbon Dioxide Level 27, Anion Gap 5, Blood Urea Nitrogen 17, Creatinine 1.1, Estimat Glomerular Filtration Rate > 60, Glucose Level 117H, Calcium Level 8.7, Phosphorus Level 2.2L, Magnesium Level 2.0 08/16/20 11:41: POC Whole Blood Glucose 97 Height (Feet): 6 Height (Inches): 2.00 Weight (Pounds): 160 General Appearance: no apparent distress Objective No change Eyad Hunt MD Aug 16, 2020 12:04
[2020-08-16] MEDS: Phospha 250 Neutral tab ORAL SCH ×2 (12:19→17:13)
--- NOTE | 2020-08-16 13:46 | Cardiac Electrophysiology PN ---
Assessment/Plan Assessment/Plan 1. Troponin elevation. The first troponin was negative. FU trponins mildly elevated at 0.08 and 0.07 EKG is very low voltage, it is nondiagnostic. Patient is already on Xarelto 15 mg daily 2. Atrial fibrillation. Again low voltage. Rate is controlled. Patient is already on Xarelto. 3. Low-voltage QRS, likely due to patient's moderate pericardial effusion, but clinically no tamponade physiology. 4. COVID infection, finished remdesivir. On IV antibiotic as well as Xarelto. 5. History of diabetes. 6. Hypoxemia. SRIRAM RN Subjective Subjective In isolation for Covid. Completed Remdesevir, On Puree diet now. Had Rapid Covid yesterday. No more atrial fib Objective Last 24 Hour Vital Signs Date Time Temp Pulse Resp B/P (MAP) Pulse Ox O2 Delivery O2 Flow Rate FiO2 08/16/20 12:00 65 08/16/20 12:00 Nasal Cannula 4.0 08/16/20 12:00 3.0 08/16/20 12:00 97.8 80 20 145/81 (102) 100 08/16/20 08:49 3.0 08/16/20 08:00 Nasal Cannula 4.0 08/16/20 08:00 71 08/16/20 07:54 96.6 65 20 140/73 (95) 100 08/16/20 04:00 4.0 08/16/20 04:00 Nasal Cannula 4.0 08/16/20 04:00 97.6 92 20 148/76 (100) 100 08/16/20 03:57 64 08/16/20 00:00 Nasal Cannula 4.0 08/16/20 00:00 98.3 72 20 143/85 (104) 100 08/15/20 23:33 70 08/15/20 20:00 97.9 73 18 135/70 (91) 100 08/15/20 20:00 Nasal Cannula 4.0 08/15/20 20:00 4.0 08/15/20 19:28 72 08/15/20 16:00 73 08/15/20 16:00 4.0 08/15/20 16:00 Nasal Cannula 4.0 08/15/20 16:00 98.1 72 18 126/71 (89) 99 Intake and Output 08/15/20 08/16/20 19:00 07:00 Intake Total 150 ml 507.6 ml Output Total 700 ml 500 ml Balance -550 ml 7.6 ml Intake Oral 150 ml 350 ml IV Total 157.6 ml Output Urine Total 700 ml 500 ml Laboratory Tests Test 08/15/20 17:03 08/15/20 21:58 08/16/20 05:16 08/16/20 10:30 POC Whole Blood Glucose 132 MG/DL (74-106) H 110 MG/DL (74-106) H 80 MG/DL (74-106) White Blood Count 10.2 K/UL (4.8-10.8) Red Blood Count 3.86 M/UL (4.70-6.10) L Hemoglobin 12.6 G/DL (14.2-18.0) L Hematocrit 37.5 % (42.0-52.0) L Mean Corpuscular Volume 97 FL (80-99) Mean Corpuscular Hemoglobin 32.6 PG (27.0-31.0) H Mean Corpuscular Hemoglobin Concent 33.5 G/DL (32.0-36.0) Red Cell Distribution Width 11.3 % (11.6-14.8) L Platelet Count 229 K/UL (150-450) Mean Platelet Volume 8.0 FL (6.5-10.1) Neutrophils (%) (Auto) % (45.0-75.0) Lymphocytes (%) (Auto) % (20.0-45.0) Monocytes (%) (Auto) % (1.0-10.0) Eosinophils (%) (Auto) % (0.0-3.0) Basophils (%) (Auto) % (0.0-2.0) Differential Total Cells Counted 100 Neutrophils % (Manual) 90 % (45-75) H Lymphocytes % (Manual) 8 % (20-45) L Monocytes % (Manual) 2 % (1-10) Eosinophils % (Manual) 0 % (0-3) Basophils % (Manual) 0 % (0-2) Band Neutrophils 0 % (0-8) Platelet Estimate Adequate Platelet Morphology Normal Red Blood Cell Morphology Normal Sodium Level 138 MMOL/L (136-145) Potassium Level 3.5 MMOL/L (3.5-5.1) Chloride Level 106 MMOL/L (98-107) Carbon Dioxide Level 27 MMOL/L (21-32) Anion Gap 5 mmol/L (5-15) Blood Urea Nitrogen 17 mg/dL (7-18) Creatinine 1.1 MG/DL (0.55-1.30) Estimat Glomerular Filtration Rate > 60 mL/min (>60) Glucose Level 117 MG/DL (74-106) H Calcium Level 8.7 MG/DL (8.5-10.1) Phosphorus Level 2.2 MG/DL (2.5-4.9) L Magnesium Level 2.0 MG/DL (1.8-2.4) Test 08/16/20 11:41 POC Whole Blood Glucose 97 MG/DL (74-106) Microbiology Date/Time Source Procedure Growth Status 08/15/20 11:30 Nasopharynx SARS-CoV-2 RdRp Gene Assay - Final Complete Objective HEAD AND NECK: Showed no JVD. LUNGS: Coarse rhonchi. CARDIOVASCULAR: Shows irregular S1 and S2 with no gallop or murmur. ABDOMEN: Soft. EXTREMITIES: No pitting edema. Ronald Baer MD Aug 16, 2020 13:46
--- NOTE | 2020-08-16 16:00 | NUR ---
NURSE NOTES: Titrated patient's oxygen supplement to 2LPM via nasal cannula, SpO2 100%, no s/sx of SOB, breathing is even and unlabored. Will continue to monitor patient.
--- NOTE | 2020-08-16 16:52 | Infectious Diseases Prog Note ---
Assessment/Plan Assessment/Plan ASSESSMENT AND PLAN: 1. covid-19 infection, hypoxia, ? pna, chest x-ray negative, ? sepsis, leukocytosis likely secondary to steroids - zosyn -day # 7 - finish - dexamethasone - day # 7 - s/p remdesivir - monitor labs - f/u on final cultures - negative to date - f/u chest x-ray - negative 2. continue treatment per primary and consultants 3. Patient has history of hypertension. 4. Diabetes. 5. COVID-19 infection. 6. Dehydration. 7. IV fluids. 8. Malnutrition. 9. Aspiration risk. 10. Elevated D-dimer 11. Allergies, no known drug allergies. 12. Social history is negative. 13. Family history is noncontributory. 14. MAR was noted. 15. Case was discussed with Dr. Fagan. Subjective Constitutional: Reports: fatigue; Denies: fever HEENT: Denies: congestion Respiratory: Denies: shortness of breath Cardiovascular: Denies: chest pain Gastrointestinal/Abdominal: Denies: nausea, vomiting, diarrhea Genitourinary: Reports: other - + cardenas Neurologic: Denies: headache Psychiatric: Reports: other - NA Skin: Denies: rash Hematologic: Denies: bleeding Musculoskeletal: Denies: pain Allergies: Coded Allergies: No Known Allergies (Unverified , 08/10/20) Objective Last 24 Hour Vital Signs Date Time Temp Pulse Resp B/P (MAP) Pulse Ox O2 Delivery O2 Flow Rate FiO2 08/16/20 16:00 76 08/16/20 15:44 98.1 71 20 143/81 (101) 100 08/16/20 15:44 2.0 08/16/20 15:43 Nasal Cannula 4.0 08/16/20 12:00 65 08/16/20 12:00 Nasal Cannula 4.0 08/16/20 12:00 3.0 08/16/20 12:00 97.8 80 20 145/81 (102) 100 08/16/20 08:49 3.0 08/16/20 08:00 Nasal Cannula 4.0 08/16/20 08:00 71 08/16/20 07:54 96.6 65 20 140/73 (95) 100 08/16/20 04:00 4.0 08/16/20 04:00 Nasal Cannula 4.0 08/16/20 04:00 97.6 92 20 148/76 (100) 100 08/16/20 03:57 64 08/16/20 00:00 Nasal Cannula 4.0 08/16/20 00:00 98.3 72 20 143/85 (104) 100 08/15/20 23:33 70 08/15/20 20:00 97.9 73 18 135/70 (91) 100 08/15/20 20:00 Nasal Cannula 4.0 08/15/20 20:00 4.0 08/15/20 19:28 72 Height (Feet): 6 Height (Inches): 2.00 Weight (Pounds): 160 General Appearance: no acute distress HEENT: normocephalic, atraumatic, anicteric, mucous membranes moist Respiratory/Chest: lungs clear, normal breath sounds, no respiratory distress, no accessory muscle use Cardiovascular: normal rate, regular rhythm, no gallop/murmur, no JVD Abdomen: normal bowel sounds, soft, non tender, no organomegaly, non distended Genitourinary: other - + cardenas - urine clear Extremities: no cyanosis Skin: no rash Neurologic/Psychiatric: valet parker II-XII grossly normal, alert, responsive Lymphatic: no neck adenopathy Musculoskeletal: no effusion Chest x-ray - 08/12/20 - Procedure: XRAY Chest 1v Indication: Shortness of breath Technique: One view of the chest Comparison: 10/10/2019 Findings: Lungs and pleural spaces are clear. Heart size is normal. No significant change Impression: No acute process Chest x-ray - 08/15/20- Procedure: XRAY Chest 1v Indication: Shortness of breath Technique: One view of the chest Comparison: 08/12/2020 Findings: Lungs pleural spaces are clear. The heart is borderline enlarged. The aorta is tortuous ectatic and calcified. No significant interim change Impression: No acute process Microbiology Date/Time Source Procedure Growth Status 08/15/20 11:30 Nasopharynx SARS-CoV-2 RdRp Gene Assay - Final Complete 08/10/20 14:18 Rectum - Final NO CARBAPENEM-RESISTANT ENTEROBACTERI... Complete 08/10/20 11:08 Blood Blood Culture - Final NO GROWTH AFTER 5 DAYS Complete Microbiology Date/Time Source Procedure Growth Status 08/15/20 11:30 Nasopharynx SARS-CoV-2 RdRp Gene Assay - Final Complete Laboratory Tests Test 08/15/20 17:03 08/15/20 21:58 08/16/20 05:16 08/16/20 10:30 POC Whole Blood Glucose 132 MG/DL (74-106) H 110 MG/DL (74-106) H 80 MG/DL (74-106) White Blood Count 10.2 K/UL (4.8-10.8) Red Blood Count 3.86 M/UL (4.70-6.10) L Hemoglobin 12.6 G/DL (14.2-18.0) L Hematocrit 37.5 % (42.0-52.0) L Mean Corpuscular Volume 97 FL (80-99) Mean Corpuscular Hemoglobin 32.6 PG (27.0-31.0) H Mean Corpuscular Hemoglobin Concent 33.5 G/DL (32.0-36.0) Red Cell Distribution Width 11.3 % (11.6-14.8) L Platelet Count 229 K/UL (150-450) Mean Platelet Volume 8.0 FL (6.5-10.1) Neutrophils (%) (Auto) % (45.0-75.0) Lymphocytes (%) (Auto) % (20.0-45.0) Monocytes (%) (Auto) % (1.0-10.0) Eosinophils (%) (Auto) % (0.0-3.0) Basophils (%) (Auto) % (0.0-2.0) Differential Total Cells Counted 100 Neutrophils % (Manual) 90 % (45-75) H Lymphocytes % (Manual) 8 % (20-45) L Monocytes % (Manual) 2 % (1-10) Eosinophils % (Manual) 0 % (0-3) Basophils % (Manual) 0 % (0-2) Band Neutrophils 0 % (0-8) Platelet Estimate Adequate Platelet Morphology Normal Red Blood Cell Morphology Normal Sodium Level 138 MMOL/L (136-145) Potassium Level 3.5 MMOL/L (3.5-5.1) Chloride Level 106 MMOL/L (98-107) Carbon Dioxide Level 27 MMOL/L (21-32) Anion Gap 5 mmol/L (5-15) Blood Urea Nitrogen 17 mg/dL (7-18) Creatinine 1.1 MG/DL (0.55-1.30) Estimat Glomerular Filtration Rate > 60 mL/min (>60) Glucose Level 117 MG/DL (74-106) H Calcium Level 8.7 MG/DL (8.5-10.1) Phosphorus Level 2.2 MG/DL (2.5-4.9) L Magnesium Level 2.0 MG/DL (1.8-2.4) Test 08/16/20 11:41 08/16/20 16:29 POC Whole Blood Glucose 97 MG/DL (74-106) 106 MG/DL (74-106) Current Medications Medications (Trade) Dose Ordered Sig/Torsten Route PRN Reason Start Time Stop Time Status Last Admin Dose Admin Acetaminophen (Tylenol) 650 mg Q4H PRN ORAL Mild Pain (Pain Scale 1-3) 08/10/20 11:45 09/09/20 11:44 Albuterol Sulfate (Proventil MDI) 2 puff Q4H PRN INH Shortness of Breath 08/10/20 13:30 11/08/20 13:29 Dexamethasone Sodium Phosphate (Decadron 10mg/ ml Inj) 6 mg DAILY IV 08/11/20 09:00 08/20/20 09:01 08/16/20 08:30 Dextrose (Dextrose 50%) 25 ml Q30M PRN IV Hypoglycemia 08/10/20 11:45 11/08/20 11:44 Dextrose (Dextrose 50%) 50 ml Q30M PRN IV Hypoglycemia 08/10/20 11:45 11/08/20 11:44 Insulin Aspart (NovoLOG) BEFORE MEALS AND HS SUBQ 08/10/20 21:00 11/08/20 20:59 08/15/20 11:30 Pantoprazole (Protonix) 40 mg DAILY IV 08/11/20 09:00 09/10/20 08:59 08/16/20 08:30 Phosphorus (Phospha 250 Neutral) 250 mg THREE TIMES A DAY ORAL 08/16/20 13:00 09/15/20 12:59 08/16/20 12:19 Rivaroxaban (Xarelto) 15 mg QPM ORAL 08/11/20 16:30 11/09/20 16:29 08/15/20 17:04 Byron Byers MD Aug 16, 2020 16:52
--- NOTE | 2020-08-16 17:00 | NUR ---
NURSE NOTES: Placed patient on room air, patient is tolerating room air, SpO2 100%, no SOB noted, breathing is even and unlabored. Will continue to monitor patient.
[2020-08-16] MEDS: Xarelto 15mg tab ORAL SCH (17:12)
--- NOTE | 2020-08-16 17:30 | NUR ---
TRANSFER TO FLOOR: Patient transferred to [facility], per Ms. Kapil NP. Report given to MIRTA Villanueva. Belongings and medications given to MIRTA Whipple . Family informed of transfer.
--- NOTE | 2020-08-16 19:19 | NUR ---
HAND-OFF: Report given to Avery, RN, pt is stable condition.
--- NOTE | 2020-08-16 19:22 | NUR ---
NURSE NOTES: The patient is alert and stable and does not seen to be in any active distress at this time. He is on room air with resp even and unlabored.The patient has a Right hand 20g IV line that is patent and asymptomatic.The bed in low and locked level, call light within easy reach and the siderails up x 2.will continue to monitor as indicated.
[2020-08-17] VITALS: BP 129/71
[2020-08-17 04:00] VITALS: BP 146/76
--- NOTE | 2020-08-17 04:22 | NUR ---
NURSE NOTES: The patient slept all night long with Resp even and unlabored. He was help with turning and reposition as indicated. will continue to monitor
[2020-08-17] MEDS: NovoLOG Insulin Flexpen SUBQ SCH ×4 (06:30→21:00)
[2020-08-17 06:45] LABS: BASOPHILS % (AUTO) 0.4 % (0.0-2.0); EOSINOPHILS % (AUTO) 0.5 % (0.0-3.0); HEMATOCRIT 36.4 % (42.0-52.0); HEMOGLOBIN 12.1 G/DL (14.2-18.0); MEAN CORPUSCULAR VOLUME 98 FL (80-99); MONOCYTES % (AUTO) 6.2 % (1.0-10.0); NEUTROPHILS % (AUTO) 80.9 % (45.0-75.0); PLATELET COUNT 235 K/UL (150-450); RED BLOOD COUNT 3.74 M/UL (4.70-6.10); RED CELL DISTRIBUTION WIDTH 11.5 % (11.6-14.8); WHITE BLOOD COUNT 9.9 K/UL (4.8-10.8)
--- NOTE | 2020-08-17 06:56 | NUR ---
NURSE HAND-OFF: Important Events on Shift:He is alert and stable and was able to sleep the entire night Patient Status: Diet: Pending Orders: ] Pending Results/Labs: Pending MD notification: Latest Vital Signs: Temperature 98.1 , Pulse 73 , B/P 146 /76 , Respiratory Rate 18 , O2 SAT 96 , Nasal Cannula, O2 Flow Rate 4.0 . Vital Sign Comment: Latest Jacobsen Fall Score: 75 Fall Risk: High Risk Safety Measures: Call light Within Reach, Bed Alarm Zone 1, Side Rails Side Rails x3, Bed position Low and Locked. Fall Precautions: Yellow Socks Yellow Gown Door Sign Patient Fall Education Report given to .
[2020-08-17 07:13] LABS: ANION GAP 7 mmol/L (5-15); BLOOD UREA NITROGEN 16 mg/dL (7-18); CALCIUM 8.8 MG/DL (8.5-10.1); CARBON DIOXIDE 27 MMOL/L (21-32); CHLORIDE 107 MMOL/L (98-107); CREATININE 1.2 MG/DL (0.55-1.30); POTASSIUM 3.1 MMOL/L (3.5-5.1); SODIUM 141 MMOL/L (136-145)
--- NOTE | 2020-08-17 07:30 | NUR ---
NURSE NOTES: Received report from Avery RN, pt a/a/o laying in bed with no signs of distress or other issues at this time. IV on the right VÁSQUEZ gauge# 290 heplock. Espino cath in place draining well. per aesthetician report total urine output: 450ml. pt in accucheks, last blood sugar 75 no insulin coverage needed. call light within reach, bed in lowest position. side rales up x2. I will f/u as needed.
[2020-08-17 08:00] VITALS: BP 153/64
--- NOTE | 2020-08-17 08:14 | Pulmonology Progress Note ---
Subjective ROS Limited/Unobtainable: No Constitutional: Reports: fatigue; Denies: fever Gastrointestinal/Abdominal: Denies: nausea, vomiting, diarrhea Psychiatric: Reports: other - NA Skin: Denies: rash Musculoskeletal: Denies: pain Allergies: Coded Allergies: No Known Allergies (Unverified , 08/10/20) Subjective transferred to [facility] floor no resp distress, no fevers CXR 08/12 NGT remains in isolation leuk resolved, on steroids completed 5 days of Remdesivivr K-3.1 this am dc was held yesterday since bed in SNF not available till Tuesday according to CM Objective Last 24 Hour Vital Signs Date Time Temp Pulse Resp B/P (MAP) Pulse Ox O2 Delivery O2 Flow Rate FiO2 08/17/20 04:00 98.1 73 18 146/76 (99) 96 08/17/20 00:00 97.3 70 20 129/71 (90) 99 08/16/20 21:00 Nasal Cannula 4.0 08/16/20 20:00 99.3 88 18 109/75 (86) 99 08/16/20 17:48 98.4 82 20 128/63 (84) 98 08/16/20 16:00 76 08/16/20 15:44 98.1 71 20 143/81 (101) 100 08/16/20 15:44 2.0 08/16/20 15:43 Nasal Cannula 4.0 08/16/20 12:00 65 08/16/20 12:00 Nasal Cannula 4.0 08/16/20 12:00 3.0 08/16/20 12:00 97.8 80 20 145/81 (102) 100 08/16/20 08:49 3.0 Intake and Output 08/16/20 08/17/20 19:00 07:00 Intake Total 400 ml 210 ml Output Total 400 ml 460 ml Balance 0 ml -250 ml Intake Oral 400 ml 210 ml Output Urine Total 400 ml 460 ml Objective General Appearance: cachetic, chronically ill looking, bedridden frail male, confused Lines, tubes and drains: peripheral HEENT: normocephalic, atraumatic, anicteric, on O2 via NC Neck: non-tender, normal inspection, trachea midline Respiratory/Chest: no accessory muscle use; f CTAB Cardiovascular/Chest: regular rhythm, Abdomen: normal bowel sounds, non tender, soft Extremities: no calf tenderness, normal capillary refill, no edema Neurologic: abnormal gait, confused, poorly responsive, moves all extremities Musculoskeletal: atrophy - BLE Microbiology Date/Time Source Procedure Growth Status 08/15/20 11:30 Nasopharynx SARS-CoV-2 RdRp Gene Assay - Final Complete Laboratory Tests 08/16/20 10:30: White Blood Count 10.2, Red Blood Count 3.86L, Hemoglobin 12.6L, Hematocrit 37.5L, Mean Corpuscular Volume 97, Mean Corpuscular Hemoglobin 32.6H, Mean Corpuscular Hemoglobin Concent 33.5, Red Cell Distribution Width 11.3L, Platelet Count 229, Mean Platelet Volume 8.0, Neutrophils (%) (Auto) , Lymphocytes (%) (Auto) , Monocytes (%) (Auto) , Eosinophils (%) (Auto) , Basophils (%) (Auto) , Differential Total Cells Counted 100, Neutrophils % (Manual) 90H, Lymphocytes % (Manual) 8L, Monocytes % (Manual) 2, Eosinophils % (Manual) 0, Basophils % (Manual) 0, Band Neutrophils 0, Platelet Estimate Adequate, Platelet Morphology Normal, Red Blood Cell Morphology Normal, Sodium Level 138, Potassium Level 3.5, Chloride Level 106, Carbon Dioxide Level 27, Anion Gap 5, Blood Urea Nitrogen 17, Creatinine 1.1, Estimat Glomerular Filtration Rate > 60, Glucose Level 117H, Calcium Level 8.7, Phosphorus Level 2.2L, Magnesium Level 2.0 08/16/20 11:41: POC Whole Blood Glucose 97 08/16/20 16:29: POC Whole Blood Glucose 106 08/17/20 05:20: POC Whole Blood Glucose 75 08/17/20 06:10: White Blood Count 9.9, Red Blood Count 3.74L, Hemoglobin 12.1L, Hematocrit 36.4L , Mean Corpuscular Volume 98, Mean Corpuscular Hemoglobin 32.5H, Mean Corpuscular Hemoglobin Concent 33.3, Red Cell Distribution Width 11.5L, Platelet Count 235, Mean Platelet Volume 7.6, Neutrophils (%) (Auto) 80.9H, Lymphocytes (%) (Auto) 12.0L, Monocytes (%) (Auto) 6.2, Eosinophils (%) (Auto) 0.5, Basophils (%) (Auto) 0.4, Sodium Level 141, Potassium Level 3.1L, Chloride Level 107, Carbon Dioxide Level 27, Anion Gap 7, Blood Urea Nitrogen 16, Creatinine 1.2, Estimat Glomerular Filtration Rate > 60, Glucose Level 111H, Calcium Level 8.8 Current Medications Medications (Trade) Dose Ordered Sig/Torsten Route PRN Reason Start Time Stop Time Status Last Admin Dose Admin Acetaminophen (Tylenol) 650 mg Q4H PRN ORAL Mild Pain (Pain Scale 1-3) 08/10/20 11:45 09/09/20 11:44 Albuterol Sulfate (Proventil MDI) 2 puff Q4H PRN INH Shortness of Breath 08/10/20 13:30 11/08/20 13:29 Dexamethasone Sodium Phosphate (Decadron 10mg/ ml Inj) 6 mg DAILY IV 08/11/20 09:00 08/20/20 09:01 08/16/20 08:30 Dextrose (Dextrose 50%) 25 ml Q30M PRN IV Hypoglycemia 08/10/20 11:45 11/08/20 11:44 Dextrose (Dextrose 50%) 50 ml Q30M PRN IV Hypoglycemia 08/10/20 11:45 11/08/20 11:44 Insulin Aspart (NovoLOG) BEFORE MEALS AND HS SUBQ 08/10/20 21:00 11/08/20 20:59 08/15/20 11:30 Pantoprazole (Protonix) 40 mg DAILY IV 08/11/20 09:00 09/10/20 08:59 08/16/20 08:30 Phosphorus (Phospha 250 Neutral) 250 mg THREE TIMES A DAY ORAL 08/16/20 13:00 09/15/20 12:59 08/16/20 17:13 Rivaroxaban (Xarelto) 15 mg QPM ORAL 08/11/20 16:30 11/09/20 16:29 08/16/20 17:12 Assessment/Plan Assessment/Plan ASSESSMENT Probably sepsis Recent COVID infection/ never treated Probable PNA Aspiration risk Elevated troponin Bradycardia Paroxysmal atrial fibrillation Acute encephalopathy Elevated D dimer JERRY -resolved Proteinuria, HTN DM Electrolyte imbalance Protein calorie malnutrition PLAN OF CARE MS floor isolation room titrate Fio2 to keep sat above 92%, Albuterol via MDI prn empiric abx, BCX 08/10 NGTD steroids /Day #8 completed Remdesivir for 5 days mild leukocytosis, probably due to steroids -resolved ID follows recent COVID 19 at [facility], not treated at that time, closely monitor resp status CRP and ferritin trending down CXR 08/12 NGT for acute CP pathology CXR 08/15 no accuse process off Zosyn aspiration precautions minimal troponin elevation 08/13 and 08/14 cardio eval appreciates PAF rate controlled on Xarelto already at night ericka in high 50th, during the day no ericka closely monitor renal parameters, nephro eval appreciated continue hydration creat remains stable replace K this am BSSE done, but pt not participated diet texture as per ST recs now eating, declined NGT aspiration precautions s/p IVF, BP and BS management GI prophylaxis protein suppl as per RD recs supportive care full code dc 08/16 was held since SNF will not have a bed for him till Tuesday according to CM notes had 5 days of Remdesevir and 7 days of steroids case discussed and evaluated by supervising physician Orly Dick NP Aug 17, 2020 08:14
[2020-08-17] MEDS: dexAMETHasone 10mg/ml Inj IV SCH (09:17)
[2020-08-17] MEDS: Phospha 250 Neutral tab ORAL SCH ×3 (09:17→17:19)
[2020-08-17] MEDS: Pantoprazole Inj IV SCH (09:17)
[2020-08-17 12:00] VITALS: BP 141/73
--- NOTE | 2020-08-17 14:10 | Nephrology Progress Note ---
Assessment/Plan Problem List: (1) Dehydration (2) JERRY (acute kidney injury) (3) Sepsis (4) COVID-19 (5) Encephalopathy Assessment JERRY- Sepsis, recent Covid infection, possible pneumonia Aspiration risk Acute encephalopathy Hypertension Diabetes mellitus BMI 20.5/protein calorie malnutrition Plan August 17: Labs are reviewed. Potassium low. Potassium supplement given. Check labs tomorrow. August 16: Labs reviewed. Low phosphorus replaced. Stable from renal standpoint of view. Due for discharge to SNF today as he received 5 days of remdesivir and 7 days of steroids August 15: Labs reviewed. Low magnesium and low phosphorus replacement ordered. Continue per consultants. August 14: No chemistry panel done today. Stable from renal standpoint of view. August 13: Labs reviewed. Renal parameters and electrolytes stable. Continue per ID/pulmonary management. Patient on antibiotics, remdesivir, steroids Continue to hydrate Monitor blood sugar Monitor electrolytes and renal parameters Urine studies Avoid nephrotoxic's Per orders Subjective ROS Limited/Unobtainable: No Constitutional: Reports: malaise, weakness Objective Objective Last 24 Hour Vital Signs Date Time Temp Pulse Resp B/P (MAP) Pulse Ox O2 Delivery O2 Flow Rate FiO2 08/17/20 12:00 97.4 79 17 141/73 (95) 98 08/17/20 09:22 96 Room Air 21 08/17/20 09:00 Nasal Cannula 4.0 08/17/20 08:00 98.2 72 17 153/64 (93) 99 08/17/20 04:00 98.1 73 18 146/76 (99) 96 08/17/20 00:00 97.3 70 20 129/71 (90) 99 08/16/20 21:00 Nasal Cannula 4.0 08/16/20 20:00 99.3 88 18 109/75 (86) 99 08/16/20 17:48 98.4 82 20 128/63 (84) 98 08/16/20 16:00 76 08/16/20 15:44 98.1 71 20 143/81 (101) 100 08/16/20 15:44 2.0 08/16/20 15:43 Nasal Cannula 4.0 Intake and Output 08/16/20 08/17/20 19:00 07:00 Intake Total 400 ml 210 ml Output Total 400 ml 460 ml Balance 0 ml -250 ml Intake Oral 400 ml 210 ml Output Urine Total 400 ml 460 ml Laboratory Tests 08/16/20 16:29: POC Whole Blood Glucose 106 08/17/20 05:20: POC Whole Blood Glucose 75 08/17/20 06:10: White Blood Count 9.9, Red Blood Count 3.74L, Hemoglobin 12.1L, Hematocrit 36.4L , Mean Corpuscular Volume 98, Mean Corpuscular Hemoglobin 32.5H, Mean Corpus cular Hemoglobin Concent 33.3, Red Cell Distribution Width 11.5L, Platelet Count 235, Mean Platelet Volume 7.6, Neutrophils (%) (Auto) 80.9H, Lymphocytes (%) (Auto) 12.0L, Monocytes (%) (Auto) 6.2, Eosinophils (%) (Auto) 0.5, Basophils (%) (Auto) 0.4, Sodium Level 141, Potassium Level 3.1L, Chloride Level 107, Carbon Dioxide Level 27, Anion Gap 7, Blood Urea Nitrogen 16, Creatinine 1.2, Estimat Glomerular Filtration Rate > 60, Glucose Level 111H, Calcium Level 8.8 08/17/20 11:49: POC Whole Blood Glucose 117H Height (Feet): 6 Height (Inches): 2.00 Weight (Pounds): 160 General Appearance: no apparent distress Cardiovascular: normal rate Respiratory/Chest: lungs clear Abdomen: soft Objective No change Eyad Hunt MD Aug 17, 2020 14:10
[2020-08-17] MEDS ORDERED: D5 1/2NS 1000ml IV ONE (15:17)
[2020-08-17] MEDS ORDERED: Tubing IV Secondary IV ONE (15:17)
--- NOTE | 2020-08-17 15:31 | NUR ---
CASE MANAGEMENT:REVIEW SI;SEPSIS. COVID PNA. 98.2 79 20 153/64 96% 4L NC K+ 3.1 IS;K-DUR PO BID PHOSPHORUS PO TID XARELTO PO QD DECADRON IV QD PROTONIX IV QD MED SURG STATUS DCP;[facility]; DC TO SNF PENDING BED AVAILABILITY
[2020-08-17 16:00] VITALS: BP 142/57
[2020-08-17] MEDS: Xarelto 15mg tab ORAL SCH (16:23)
--- NOTE | 2020-08-17 17:20 | Cardiac Electrophysiology PN ---
Assessment/Plan Assessment/Plan 1. Troponin elevation. The first troponin was negative. FU trponins mildly elevated at 0.08 and 0.07 EKG is very low voltage, it is nondiagnostic. Patient is already on Xarelto 15 mg daily 2. Atrial fibrillation. Again low voltage. Rate is controlled. Patient is already on Xarelto. 3. Low-voltage QRS, likely due to patient's moderate pericardial effusion, but clinically no tamponade physiology. 4. COVID infection, finished remdesivir. On IV antibiotic as well as Xarelto. 5. History of diabetes. 6. Hypoxemia. SRIRAM RN Subjective Subjective In isolation for Covid. Completed Remdesevir, On Puree diet now. Had Rapid Covid on 05/15 that was again positive. No more atrial fib. Off tele now Objective Last 24 Hour Vital Signs Date Time Temp Pulse Resp B/P (MAP) Pulse Ox O2 Delivery O2 Flow Rate FiO2 08/17/20 16:00 98.9 69 18 142/57 (85) 98 08/17/20 12:00 97.4 79 17 141/73 (95) 98 08/17/20 09:22 96 Room Air 21 08/17/20 09:00 Nasal Cannula 4.0 08/17/20 08:00 98.2 72 17 153/64 (93) 99 08/17/20 04:00 98.1 73 18 146/76 (99) 96 08/17/20 00:00 97.3 70 20 129/71 (90) 99 08/16/20 21:00 Nasal Cannula 4.0 08/16/20 20:00 99.3 88 18 109/75 (86) 99 08/16/20 17:48 98.4 82 20 128/63 (84) 98 Intake and Output 08/16/20 08/17/20 19:00 07:00 Intake Total 400 ml 210 ml Output Total 400 ml 460 ml Balance 0 ml -250 ml Intake Oral 400 ml 210 ml Output Urine Total 400 ml 460 ml Laboratory Tests Test 08/17/20 05:20 08/17/20 06:10 08/17/20 11:49 08/17/20 16:25 POC Whole Blood Glucose 75 MG/DL (74-106) 117 MG/DL (74-106) H 168 MG/DL (74-106) H White Blood Count 9.9 K/UL (4.8-10.8) Red Blood Count 3.74 M/UL (4.70-6.10) L Hemoglobin 12.1 G/DL (14.2-18.0) L Hematocrit 36.4 % (42.0-52.0) L Mean Corpuscular Volume 98 FL (80-99) Mean Corpuscular Hemoglobin 32.5 PG (27.0-31.0) H Mean Corpuscular Hemoglobin Concent 33.3 G/DL (32.0-36.0) Red Cell Distribution Width 11.5 % (11.6-14.8) L Platelet Count 235 K/UL (150-450) Mean Platelet Volume 7.6 FL (6.5-10.1) Neutrophils (%) (Auto) 80.9 % (45.0-75.0) H Lymphocytes (%) (Auto) 12.0 % (20.0-45.0) L Monocytes (%) (Auto) 6.2 % (1.0-10.0) Eosinophils (%) (Auto) 0.5 % (0.0-3.0) Basophils (%) (Auto) 0.4 % (0.0-2.0) Sodium Level 141 MMOL/L (136-145) Potassium Level 3.1 MMOL/L (3.5-5.1) L Chloride Level 107 MMOL/L (98-107) Carbon Dioxide Level 27 MMOL/L (21-32) Anion Gap 7 mmol/L (5-15) Blood Urea Nitrogen 16 mg/dL (7-18) Creatinine 1.2 MG/DL (0.55-1.30) Estimat Glomerular Filtration Rate > 60 mL/min (>60) Glucose Level 111 MG/DL (74-106) H Calcium Level 8.8 MG/DL (8.5-10.1) Microbiology Date/Time Source Procedure Growth Status 08/15/20 11:30 Nasopharynx SARS-CoV-2 RdRp Gene Assay - Final Complete Objective HEAD AND NECK: Showed no JVD. LUNGS: Coarse rhonchi. CARDIOVASCULAR: Shows irregular S1 and S2 with no gallop or murmur. ABDOMEN: Soft. EXTREMITIES: No pitting edema. Ronald Baer MD Aug 17, 2020 17:20
--- NOTE | 2020-08-17 19:24 | NUR ---
NURSE HAND-OFF: Important Events on Shift:[] Patient Status: full code/stable Diet: CCHO medium/pureed diet Pending Orders: [] Pending Results/Labs:am labs Pending MD notification:[] Latest Vital Signs: Temperature 98.9 , Pulse 69 , B/P 142 /57 , Respiratory Rate 18 , O2 SAT 98 , Nasal Cannula, O2 Flow Rate . Vital Sign Comment: stable. pt is in Room air Latest Jacobsen Fall Score: 75 Fall Risk: High Risk Safety Measures: Call light Within Reach, Bed Alarm Zone 1, Side Rails Side Rails x3, Bed position Low and Locked. Fall Precautions: bed bound Yellow Socks Yellow Gown Door Sign Patient Fall Education Report given to Yamileth KIRBY, pt in stable condition. - pt was able to tolerate all his meals at 100% with no signs cough/nausea or aspiration - Replaced K+ with 80mEq. - NO BM today
--- NOTE | 2020-08-17 19:30 | NUR ---
NURSE NOTES: Pt is alert x2-3, lying in bed, somewhat passive, with no signs of distress or other issues at this time. IV patent, asymptomatic, saline locked. Espino cath in place draining well. Last blood sugar 79 WNL, given juice. 1:1 feed . no insulin coverage needed. call light within reach, bed in lowest position, bed alarm on
[2020-08-17 20:00] VITALS: BP 140/62
[2020-08-18] VITALS: BP 109/75
[2020-08-18 04:06] VITALS: BP 132/62
[2020-08-18] MEDS: NovoLOG Insulin Flexpen SUBQ SCH ×4 (06:30→21:00)
--- NOTE | 2020-08-18 07:40 | NUR ---
NURSE HAND-OFF: Important Events on Shift:[suspected dti identified, pics not uploaded for Tuesday] Patient Status: full code/stable [facility]: [facility] medium/pureed diet Pending Orders: [nutrition consult, wound care protocol initiated] Pending Results/Labs:am labs Pending MD notification:[ am labs, wound Latest Vital Signs: Temperature 98.9 , Pulse 69 , B/P 142 /57 , Respiratory Rate 18 , O2 SAT 98 , Nasal Cannula, O2 Flow Rate . Vital Sign Comment: stable. pt is in Room air Latest Jacobsen Fall Score: 75 Fall Risk: High Risk Safety Measures: Call light Within Reach, Bed Alarm Zone 1, Side Rails Side Rails x3, Bed position Low and Locked. Fall Precautions: bed bound Yellow Socks Yellow Gown Door Sign Patient Fall Education Report given to Denis KIRBY Addendum: 08/18/20 at 0806 by Yamileth Mccaeb RN pink tinged urine noted in cardenas catheter, slight leakage from cardenas, may require a larger cardenas (is 17 maldivian)
--- NOTE | 2020-08-18 07:43 | NUR ---
NURSE NOTES: Received report from MIRTA Carson. Rounding done with outgoing nurse. Pt a/o x 2, in bed. No respiratory discomfort noted. Rt hand IV access is in placed. Bed in lowest position, call light within reach. Will continue to monitor.
[2020-08-18 08:00] VITALS: BP 150/75
[2020-08-18 09:14] LABS: BASOPHILS % (AUTO) 0.3 % (0.0-2.0); EOSINOPHILS % (AUTO) 0.2 % (0.0-3.0); HEMATOCRIT 36.2 % (42.0-52.0); HEMOGLOBIN 12.1 G/DL (14.2-18.0); LYMPHOCYTES % (AUTO) 15.3 % (20.0-45.0); MEAN CORPUSCULAR VOLUME 98 FL (80-99); NEUTROPHILS % (AUTO) 75.2 % (45.0-75.0); PLATELET COUNT 215 K/UL (150-450); RED BLOOD COUNT 3.69 M/UL (4.70-6.10); RED CELL DISTRIBUTION WIDTH 11.7 % (11.6-14.8); WHITE BLOOD COUNT 8.5 K/UL (4.8-10.8)
[2020-08-18] MEDS: Pantoprazole Inj IV SCH (09:34)
[2020-08-18] MEDS: Phospha 250 Neutral tab ORAL SCH ×3 (09:34→17:21)
[2020-08-18] MEDS: dexAMETHasone 10mg/ml Inj IV SCH (09:35)
--- NOTE | 2020-08-18 09:58 | Pulmonology Progress Note ---
Subjective ROS Limited/Unobtainable: No Constitutional: Reports: fatigue; Denies: fever Gastrointestinal/Abdominal: Denies: nausea, vomiting, diarrhea Psychiatric: Reports: other - NA Skin: Denies: rash Musculoskeletal: Denies: pain Allergies: Coded Allergies: No Known Allergies (Unverified , 08/10/20) Subjective now on [facility] floor no resp distress, no fevers repeated CXR 08/15 -> NGT now on RA, pulse ox stable remains in isolation leuk resolved, on steroids completed 5 days of Remdesivivr dc was held since bed in SNF not available till Tuesday according to dc plan ongoing Objective Last 24 Hour Vital Signs Date Time Temp Pulse Resp B/P (MAP) Pulse Ox O2 Delivery O2 Flow Rate FiO2 08/18/20 04:06 98.2 71 17 132/62 (85) 99 08/18/20 00:00 98.0 88 18 109/75 (86) 99 08/17/20 21:00 Room Air 08/17/20 20:00 97.8 84 18 140/62 (88) 98 08/17/20 19:32 95 Room Air 21 08/17/20 16:00 98.9 69 18 142/57 (85) 98 08/17/20 12:00 97.4 79 17 141/73 (95) 98 Intake and Output 08/17/20 08/18/20 19:00 07:00 Output Total 900 ml 1000 ml Balance -900 ml -1000 ml Output Urine Total 900 ml 1000 ml Objective General Appearance: cachetic, chronically ill looking, bedridden frail male, confused Lines, tubes and drains: peripheral HEENT: normocephalic, atraumatic, anicteric, Neck: non-tender, normal inspection, trachea midline Respiratory/Chest: no accessory muscle use; f CTAB Cardiovascular/Chest: regular rhythm, Abdomen: normal bowel sounds, non tender, soft Extremities: no calf tenderness, normal capillary refill, no edema Neurologic: abnormal gait, confused, poorly responsive, moves all extremities Musculoskeletal: atrophy - BLE Microbiology Date/Time Source Procedure Growth Status 08/15/20 11:30 Nasopharynx SARS-CoV-2 RdRp Gene Assay - Final Complete Laboratory Tests 08/17/20 11:49: POC Whole Blood Glucose 117H 08/17/20 16:25: POC Whole Blood Glucose 168H 08/17/20 21:43: POC Whole Blood Glucose 155H 08/18/20 06:06: POC Whole Blood Glucose 79 08/18/20 08:25: White Blood Count 8.5, Red Blood Count 3.69L, Hemoglobin 12.1L, Hematocrit 36.2L , Mean Corpuscular Volume 98, Mean Corpuscular Hemoglobin 32.7H, Mean Corpuscular Hemoglobin Concent 33.3, Red Cell Distribution Width 11.7, Platelet Count 215, Mean Platelet Volume 7.3, Neutrophils (%) (Auto) 75.2H, Lymphocytes (%) (Auto) 15.3L, Monocytes (%) (Auto) 9.0, Eosinophils (%) (Auto) 0.2, Basophils (%) (Auto) 0.3, Sodium Level [Pending], Potassium Level [Pending], Chloride Level [Pending], Carbon Dioxide Level [Pending], Blood Urea Nitrogen [Pending], Creatinine [Pending], Estimat Glomerular Filtration Rate [Pending], Glucose Level [Pending], Calcium Level [Pending], Phosphorus Level [Pending], Magnesium Level [Pending], Total Bilirubin [Pending], Aspartate Amino Transf (AST/SGOT) [Pending], Alanine Aminotransferase (ALT/SGPT) [Pending], Alkaline Phosphatase [Pending], Total Protein [Pending], Albumin [Pending], Globulin [Pending] Current Medications Medications (Trade) Dose Ordered Sig/Torsten Route PRN Reason Start Time Stop Time Status Last Admin Dose Admin Acetaminophen (Tylenol) 650 mg Q4H PRN ORAL Mild Pain (Pain Scale 1-3) 08/10/20 11:45 09/09/20 11:44 Albuterol Sulfate (Proventil MDI) 2 puff Q4H PRN INH Shortness of Breath 08/10/20 13:30 11/08/20 13:29 Dexamethasone Sodium Phosphate (Decadron 10mg/ ml Inj) 6 mg DAILY IV 08/11/20 09:00 08/20/20 09:01 08/18/20 09:35 Dextrose (Dextrose 50%) 25 ml Q30M PRN IV Hypoglycemia 08/10/20 11:45 11/08/20 11:44 Dextrose (Dextrose 50%) 50 ml Q30M PRN IV Hypoglycemia 11/8/20 11:45 11/08/20 11:44 Insulin Aspart (NovoLOG) BEFORE MEALS AND HS SUBQ 08/10/20 21:00 11/08/20 20:59 08/17/20 16:30 Pantoprazole (Protonix) 40 mg DAILY IV 08/11/20 09:00 09/10/20 08:59 08/18/20 09:34 Phosphorus (Phospha 250 Neutral) 250 mg THREE TIMES A DAY ORAL 08/16/20 13:00 09/15/20 12:59 08/18/20 09:34 Potassium Chloride (K-Dur) 40 meq TWICE A DAY ORAL 08/17/20 18:00 11/15/20 17:59 08/18/20 09:35 Rivaroxaban (Xarelto) 15 mg QPM ORAL 08/11/20 16:30 11/09/20 16:29 08/17/20 16:23 Assessment/Plan Assessment/Plan ASSESSMENT Probably sepsis Recent COVID infection/ never treated Probable PNA Aspiration risk Elevated troponin Bradycardia Paroxysmal atrial fibrillation Acute encephalopathy Elevated D dimer JERRY -resolved Proteinuria, HTN DM Electrolyte imbalance Protein calorie malnutrition PLAN OF CARE MS floor isolation room titrate Fio2 to keep sat above 92%, currently on RA pulse ox stable Albuterol via MDI prn empiric abx, BCX 08/10 NGTD steroids /Day #9 completed Remdesivir for 5 days mild leukocytosis, probably due to steroids -resolved ID follows recent COVID 19 at [facility], not treated at that time, closely monitor resp status repeat COVID 19 08/15 still positive CRP and ferritin trending down CXR 08/12 NGT for acute CP pathology CXR 08/15 no acute process off Zosyn aspiration precautions minimal troponin elevation 08/13 and 08/14 cardio eval appreciates PAF rate controlled on Xarelto already prior at night ericka in high 50th, during the day no ericka closely monitor renal parameters, nephro eval appreciated continue hydration creat remains stable K repalced 08/17, Chem still pedion for this am BSSE done, but pt not participated diet texture as per ST recs now eating, declined NGT aspiration precautions s/p IVF, BP and BS management GI prophylaxis protein suppl as per RD recs supportive care full code dc 08/16 was held since SNF will not have a bed for him till Tuesday according to CM notes dc plan ongoing pending bed availability had 5 days of Remdesivir and 8 days of steroids case discussed and evaluated by supervising physician Orly Dick NP Aug 18, 2020 09:58 Sonu Fagan MD Aug 18, 2020 15:16
[2020-08-18 10:00] LABS: ALANINE AMINOTRANSFERASE 35 U/L (12-78); ALBUMIN 2.4 G/DL (3.4-5.0); ALBUMIN/GLOBULIN RATIO 0.8 (1.0-2.7); ALKALINE PHOSPHATASE 48 U/L (46-116); ANION GAP 4 mmol/L (5-15); ASPARTATE AMINO TRANSFERASE 24 U/L (15-37); BILIRUBIN,TOTAL 0.5 MG/DL (0.2-1.0); BLOOD UREA NITROGEN 15 mg/dL (7-18); CALCIUM 9.1 MG/DL (8.5-10.1); CARBON DIOXIDE 30 MMOL/L (21-32); CHLORIDE 108 MMOL/L (98-107); CREATININE 1.2 MG/DL (0.55-1.30); POTASSIUM 3.7 MMOL/L (3.5-5.1); SODIUM 142 MMOL/L (136-145)
[2020-08-18 10:03] LABS: PHOSPHORUS 2.4 MG/DL (2.5-4.9)
--- NOTE | 2020-08-18 11:32 | Cardiac Electrophysiology PN ---
Assessment/Plan Assessment/Plan 1. Troponin elevation. The first troponin was negative. FU trponins mildly elevated at 0.08 and 0.07 EKG is very low voltage, it is nondiagnostic. Patient is already on Xarelto 15 mg daily 2. Atrial fibrillation. Again low voltage. Rate is controlled. Patient is already on Xarelto. 3. Low-voltage QRS, likely due to patient's moderate pericardial effusion, but clinically no tamponade physiology. 4. COVID infection, finished remdesivir. On IV antibiotic as well as Xarelto. 5. History of diabetes. 6. Hypoxemia. SRIRAM RN Subjective Subjective In isolation for Covid. Completed Remdesevir, On Puree diet now. Had Rapid Covid on 05/15 that was again positive. Objective Last 24 Hour Vital Signs Date Time Temp Pulse Resp B/P (MAP) Pulse Ox O2 Delivery O2 Flow Rate FiO2 08/18/20 09:00 Room Air 08/18/20 08:00 98.7 71 18 150/75 (100) 98 78 08/18/20 04:06 98.2 71 17 132/62 (85) 99 08/18/20 00:00 98.0 88 18 109/75 (86) 99 08/17/20 21:00 Room Air 08/17/20 20:00 97.8 84 18 140/62 (88) 98 08/17/20 19:32 95 Room Air 21 08/17/20 16:00 98.9 69 18 142/57 (85) 98 08/17/20 12:00 97.4 79 17 141/73 (95) 98 Intake and Output 08/17/20 08/18/20 19:00 07:00 Output Total 900 ml 1000 ml Balance -900 ml -1000 ml Output Urine Total 900 ml 1000 ml Laboratory Tests Test 08/17/20 11:49 08/17/20 16:25 08/17/20 21:43 08/18/20 06:06 POC Whole Blood Glucose 117 MG/DL (74-106) H 168 MG/DL (74-106) H 155 MG/DL (74-106) H 79 MG/DL (74-106) Test 08/18/20 08:25 White Blood Count 8.5 K/UL (4.8-10.8) Red Blood Count 3.69 M/UL (4.70-6.10) L Hemoglobin 12.1 G/DL (14.2-18.0) L Hematocrit 36.2 % (42.0-52.0) L Mean Corpuscular Volume 98 FL (80-99) Mean Corpuscular Hemoglobin 32.7 PG (27.0-31.0) H Mean Corpuscular Hemoglobin Concent 33.3 G/DL (32.0-36.0) Red Cell Distribution Width 11.7 % (11.6-14.8) Platelet Count 215 K/UL (150-450) Mean Platelet Volume 7.3 FL (6.5-10.1) Neutrophils (%) (Auto) 75.2 % (45.0-75.0) H Lymphocytes (%) (Auto) 15.3 % (20.0-45.0) L Monocytes (%) (Auto) 9.0 % (1.0-10.0) Eosinophils (%) (Auto) 0.2 % (0.0-3.0) Basophils (%) (Auto) 0.3 % (0.0-2.0) Sodium Level 142 MMOL/L (136-145) Potassium Level 3.7 MMOL/L (3.5-5.1) Chloride Level 108 MMOL/L (98-107) H Carbon Dioxide Level 30 MMOL/L (21-32) Anion Gap 4 mmol/L (5-15) L Blood Urea Nitrogen 15 mg/dL (7-18) Creatinine 1.2 MG/DL (0.55-1.30) Estimat Glomerular Filtration Rate > 60 mL/min (>60) Glucose Level 99 MG/DL (74-106) Calcium Level 9.1 MG/DL (8.5-10.1) Phosphorus Level 2.4 MG/DL (2.5-4.9) L Magnesium Level 2.0 MG/DL (1.8-2.4) Ferritin 988 NG/ML (8-388) H Total Bilirubin 0.5 MG/DL (0.2-1.0) Aspartate Amino Transf (AST/SGOT) 24 U/L (15-37) Alanine Aminotransferase (ALT/SGPT) 35 U/L (12-78) Alkaline Phosphatase 48 U/L (46-116) C-Reactive Protein, Quantitative 1.3 mg/dL (0.00-0.90) H Total Protein 5.5 G/DL (6.4-8.2) L Albumin 2.4 G/DL (3.4-5.0) L Globulin 3.1 g/dL Albumin/Globulin Ratio 0.8 (1.0-2.7) L Objective HEAD AND NECK: Showed no JVD. LUNGS: Coarse rhonchi. CARDIOVASCULAR: Shows irregular S1 and S2 with no gallop or murmur. ABDOMEN: Soft. EXTREMITIES: No pitting edema. Ronald Baer MD Aug 18, 2020 11:32
[2020-08-18 12:00] VITALS: BP 117/76
--- NOTE | 2020-08-18 12:51 | NUR ---
RD ASSESSMENT & RECOMMENDATIONS SEE CARE ACTIVITY FOR COMPLETE ASSESSMENT DAILY ESTIMATED NEEDS: Needs based on Pulmonary 51kg 25-35 kcals/kg 0714-0717 total kcals 1-1.5 g protein/kg 51-77 g total protein 25-30 mL/kg 5820-9175 total fluid mLs NUTRITION DIAGNOSIS: * Swallowing difficulty R/T dysphagia as evidenced by seen by AUTOMATIC PACKER OPERATOR w/ rec for pureed moist w/ NTL. * Altered nutrition related lab values r/t clinical status as evidenced by elev A1C (6.5), elev AST- now wnl, covid ++. CURRENT DIET: CCHO MED puree w/ NTL + Glucerna TID w/ meals PO DIET RECOMMENDATIONS: CCHO MED/ texture per AUTOMATIC PACKER OPERATOR ADDITIONAL RECOMMENDATIONS: 1) Continue Glucerna TID w/ meals 2) Monitor for continued improved/good PO intake 3) EMR wt: 72.5kg---> now 55.4kg Verify ht and wt as able 4) F/up w/ WC eval -> add MVI x 1 for now 5) Updated BM: last recorded 08/10, consider bowel regimen
--- NOTE | 2020-08-18 13:12 | Nephrology Progress Note ---
Assessment/Plan Problem List: (1) Dehydration (2) JERRY (acute kidney injury) (3) Sepsis (4) COVID-19 (5) Encephalopathy Assessment JERRY- Sepsis, recent Covid infection, possible pneumonia Aspiration risk Acute encephalopathy Hypertension Diabetes mellitus BMI 20.5/protein calorie malnutrition Plan August 18: Labs reviewed. Abnormal electrolyte addressed. Continue same treatment plan. August 17: Labs are reviewed. Potassium low. Potassium supplement given. Check labs tomorrow. August 16: Labs reviewed. Low phosphorus replaced. Stable from renal s tandpoint of view. Due for discharge to SNF today as he received 5 days of remdesivir and 7 days of steroids August 15: Labs reviewed. Low magnesium and low phosphorus replacement ordered. Continue per consultants. August 14: No chemistry panel done today. Stable from renal standpoint of view. August 13: Labs reviewed. Renal parameters and electrolytes stable. Continue per ID/pulmonary management. Patient on antibiotics, remdesivir, steroids Continue to hydrate Monitor blood sugar Monitor electrolytes and renal parameters Urine studies Avoid nephrotoxic's Per orders Subjective ROS Limited/Unobtainable: No Constitutional: Reports: malaise Objective Objective Last 24 Hour Vital Signs Date Time Temp Pulse Resp B/P (MAP) Pulse Ox O2 Delivery O2 Flow Rate FiO2 08/18/20 12:00 98.4 69 19 117/76 (90) 97 08/18/20 09:00 Room Air 08/18/20 08:00 98.7 71 18 150/75 (100) 98 78 08/18/20 04:06 98.2 71 17 132/62 (85) 99 08/18/20 00:00 98.0 88 18 109/75 (86) 99 08/17/20 21:00 Room Air 08/17/20 20:00 97.8 84 18 140/62 (88) 98 08/17/20 19:32 95 Room Air 21 08/17/20 16:00 98.9 69 18 142/57 (85) 98 Intake and Output 08/17/20 08/18/20 19:00 07:00 Output Total 900 ml 1000 ml Balance -900 ml -1000 ml Output Urine Total 900 ml 1000 ml Current Medications Medications (Trade) Dose Ordered Sig/Torsten Route PRN Reason Start Time Stop Time Status Last Admin Dose Admin Acetaminophen (Tylenol) 650 mg Q4H PRN ORAL Mild Pain (Pain Scale 1-3) 08/10/20:45 09/09/20 11:44 Albuterol Sulfate (Proventil MDI) 2 puff Q4H PRN INH Shortness of Breath 08/10/20 13:30 11/08/20 13:29 Dexamethasone Sodium Phosphate (Decadron 10mg/ ml Inj) 6 mg DAILY IV 08/11/20 09:00 08/20/20 09:01 08/18/20 09:35 Dextrose (Dextrose 50%) 25 ml Q30M PRN IV Hypoglycemia 08/10/20 11:45 11/08/20 11:44 Dextrose (Dextrose 50%) 50 ml Q30M PRN IV Hypoglycemia 08/10/20 11:45 11/08/20 11:44 Insulin Aspart (NovoLOG) BEFORE MEALS AND HS SUBQ 08/10/20 21:00 11/08/20 20:59 08/17/20 16:30 Pantoprazole (Protonix) 40 mg DAILY IV 08/11/20 09:00 09/10/20 08:59 08/18/20 09:34 Phosphorus (Phospha 250 Neutral) 250 mg THREE TIMES A DAY ORAL 08/16/20 13:00 09/15/20 12:59 08/18/20 12:09 Potassium Chloride (K-Dur) 40 meq TWICE A DAY ORAL 08/17/20 18:00 11/15/20 17:59 08/18/20 09:35 Rivaroxaban (Xarelto) 15 mg QPM ORAL 08/11/20 16:30 11/09/20 16:29 08/17/20 16:23 Laboratory Tests 08/17/20 16:25: POC Whole Blood Glucose 168H 08/17/20 21:43: POC Whole Blood Glucose 155H 08/18/20 06:06: POC Whole Blood Glucose 79 08/18/20 08:25: White Blood Count 8.5, Red Blood Count 3.69L, Hemoglobin 12.1L, Hematocrit 36.2L , Mean Corpuscular Volume 98, Mean Corpuscular Hemoglobin 32.7H, Mean Corpuscular Hemoglobin Concent 33.3, Red Cell Distribution Width 11.7, Platelet Count 215, Mean Platelet Volume 7.3, Neutrophils (%) (Auto) 75.2H, Lymphocytes (%) (Auto) 15.3L, Monocytes (%) (Auto) 9.0, Eosinophils (%) (Auto) 0.2, Bas ophils (%) (Auto) 0.3, Sodium Level 142, Potassium Level 3.7, Chloride Level 108H, Carbon Dioxide Level 30, Anion Gap 4L, Blood Urea Nitrogen 15, Creatinine 1.2, Estimat Glomerular Filtration Rate > 60, Glucose Level 99, Calcium Level 9.1, Phosphorus Level 2.4L, Magnesium Level 2.0, Ferritin 988H, Total Bilirubin 0.5, Aspartate Amino Transf (AST/SGOT) 24, Alanine Aminotransferase (ALT/SGPT) 35, Alkaline Phosphatase 48, C-Reactive Protein, Quantitative 1.3H, Total Protein 5.5L, Albumin 2.4L, Globulin 3.1, Albumin/Globulin Ratio 0.8L 08/18/20 12:09: POC Whole Blood Glucose [Pending] Height (Feet): 6 Height (Inches): 2.00 Weight (Pounds): 160 General Appearance: no apparent distress, lethargic Cardiovascular: normal rate Respiratory/Chest: decreased breath sounds Abdomen: soft Objective No change Eyad Hunt MD Aug 18, 2020 13:12
--- NOTE | 2020-08-18 14:00 | NUR ---
CASE MANAGEMENT:REVIEW SI;SEPSIS. COVID PNA. 98.7 88 19 150/75 97% ON RA CL 108 PHOS 2.4 FERRITIN 988 CUSTOMER DEVELOPMENT MANAGER 1.3 ALB 2.4 IS;K-DUR PO BID PHOSPHORUS PO TID XARELTO PO DECADRON IV QD PROTONIX IV QD MED SURG STATUS DCP;[facility]; TO SNF PENDING BED AVAILABILITY
--- NOTE | 2020-08-18 14:55 | NUR ---
DIETARY MANAGER NOTE CALL FROM PATIENTS DAUGHTER HARVEY CAMACHO TRANSFERRED BY RN. PER PT DTR, SHE DOES NOT WANT PATIENT TO RETURN TO SNF. STATED THAT PATIENT WAS PLACED AT SNF FROM [facility] D/T COVID(+). PER DTR, SHE WOULD LIKE TO SPEAK TO MD AND PREFERS FOR PATIENT TO DC HOME IF ABLE. PER GA OMER, SHE WILL INFORM DR BESS TO SPEAK TO DTR.
--- NOTE | 2020-08-18 15:06 | NUR ---
NURSE NOTES: Spoke with Diogo, daughter regarding that pt will be back [facility]. Pt's daughter complains about that she doesnt want him go back to SNF. Ally, caser in spoke with the daughter regarding d/c plan. manager private discussed with JETT Villalba and pending d/c now. Pt may go home instead of going to SNF. Addendum: 08/18/20 at 1710 by Lorena Liu RN Pt's daughter wants to speak with doctor so JETT Villalba will have Dr. Fagan speak with pt's daughter. Pending D/C.
[2020-08-18 16:00] VITALS: BP 129/81
--- NOTE | 2020-08-18 16:17 | NUR ---
DISCHARGE PLANNING PATIENT HAS BEEN REFERRED TO [facility] [phone] F [phone]
[2020-08-18] MEDS: Xarelto 15mg tab ORAL SCH (16:38)
--- NOTE | 2020-08-18 18:53 | NUR ---
NURSE HAND-OFF: Important Events on Shift: Patient Status: stable Diet: CCHO(medium) Pending Orders: - Pending Results/Labs:- Pending MD notification:- Latest Vital Signs: Temperature 98.5 , Pulse 61 , B/P 129 /81 , Respiratory Rate 18 , O2 SAT 97 , Room Air, O2 Flow Rate . Vital Sign Comment: stable Latest Jacobsen Fall Score: 75 Fall Risk: High Risk Safety Measures: Call light Within Reach, Bed Alarm Zone 1, Side Rails Side Rails x3, Bed position Low and Locked. Fall Precautions: Yellow Socks Yellow Gown Door Sign Patient Fall Education Report given to MIRTA Carson.
--- NOTE | 2020-08-18 19:00 | NUR ---
NURSE NOTES: Pt is alert and oriented x3. Pt knows his location, reason for hospital visit but is not alert to year. Thinks it is 2000 and that Eliezer is president. Reoriented pt. Pt is sitting up in bed in semi fowlers position, is somewhat passive and has a flat affect. On room air, in no acute distress. IV is patent, asymptomatic, saline locked. Espino cath in place secured to leg, draining yellow urine with tinges of pink, small clots although there is some leakage at the insertion area. Pt HOB is elevated to maintain aspiration precautions, 1:1 feed. Is nearly blind per pt. Bed is locked in lowest position, call light within reach, bed alarm on, fall precautions in place. Pt to be going home tomorrow. There is an active D/C order to [facility], however Case management is working with pt's daughter as she would prefer the pt to go home with her. Cs management found a home health agency. JETT Dick aware of daughter's wishes and that she wants to speak with Dr Fagan in preparation for discharge.
--- NOTE | 2020-08-18 19:12 | Infectious Diseases Prog Note ---
Assessment/Plan Assessment/Plan ASSESSMENT AND PLAN: 1. covid-19 infection, hypoxia, ? pna, chest x-ray negative, ? sepsis, leukocytosis likely secondary to steroids - s/p zosyn - dexamethasone - day # 9/10 - s/p remdesivir - monitor labs - f/u on final cultures - negative to date - f/u chest x-ray - negative 2. continue treatment per primary and consultants 3. Patient has history of hypertension. 4. Diabetes. 5. COVID-19 infection. 6. Dehydration. 7. IV fluids. 8. Malnutrition. 9. Aspiration risk. 10. Elevated D-dimer 11. Allergies, no known drug allergies. 12. Social history is negative. 13. Family history is noncontributory. 14. MAR was noted. 15. Case was discussed with Dr. Fagan. Subjective Constitutional: Reports: fatigue; Denies: fever HEENT: Denies: congestion Respiratory: Denies: shortness of breath Cardiovascular: Denies: chest pain Gastrointestinal/Abdominal: Denies: nausea, vomiting, diarrhea Genitourinary: Reports: other - no cardenas Psychiatric: Denies: depression Skin: Denies: rash Hematologic: Denies: bleeding Musculoskeletal: Denies: pain Allergies: Coded Allergies: No Known Allergies (Unverified , 08/10/20) Objective Last 24 Hour Vital Signs Date Time Temp Pulse Resp B/P (MAP) Pulse Ox O2 Delivery O2 Flow Rate FiO2 08/18/20 16:00 98.5 61 18 129/81 (97) 97 08/18/20 12:00 98.4 69 19 117/76 (90) 97 08/18/20 09:00 Room Air 08/18/20 08:00 98.7 71 18 150/75 (100) 98 78 08/18/20 04:06 98.2 71 17 132/62 (85) 99 08/18/20 00:00 98.0 88 18 109/75 (86) 99 08/17/20 21:00 Room Air 08/17/20 20:00 97.8 84 18 140/62 (88) 98 08/17/20 19:32 95 Room Air 21 Height (Feet): 6 Height (Inches): 2.00 Weight (Pounds): 160 General Appearance: no acute distress HEENT: normocephalic, atraumatic, anicteric, mucous membranes moist Respiratory/Chest: lungs clear, normal breath sounds, no respiratory distress, no accessory muscle use Cardiovascular: normal rate, regular rhythm, no gallop/murmur, no JVD Abdomen: normal bowel sounds, soft, non tender, no organomegaly, non distended Genitourinary: other - no cardenas Extremities: no cyanosis Skin: no rash, no lesions 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 Heart size is normal. No significant change Impression: No acute process Chest x-ray - 08/15/20- Procedure: XRAY Chest 1v Indication: Shortness of breath Technique: One view of the chest Comparison: 08/12/2020 Findings: Lungs pleural spaces are clear. The heart is borderline enlarged. The aorta is tortuous ectatic and calcified. No significant interim change Impression: No acute process Microbiology Date/Time Source Procedure Growth Status 08/15/20 11:30 Nasopharynx SARS-CoV-2 RdRp Gene Assay - Final Complete 08/10/20 14:18 Rectum - Final NO CARBAPENEM-RESISTANT ENTEROBACTERI... Complete 08/10/20 11:08 Blood Blood Culture - Final NO GROWTH AFTER 5 DAYS Complete Laboratory Tests Test 08/17/20 21:43 08/18/20 06:06 08/18/20 08:25 08/18/20 12:09 POC Whole Blood Glucose 155 MG/DL (74-106) H 79 MG/DL (74-106) Pending White Blood Count 8.5 K/UL (4.8-10.8) Red Blood Count 3.69 M/UL (4.70-6.10) L Hemoglobin 12.1 G/DL (14.2-18.0) L Hematocrit 36.2 % (42.0-52.0) L Mean Corpuscular Volume 98 FL (80-99) Mean Corpuscular Hemoglobin 32.7 PG (27.0-31.0) H Mean Corpuscular Hemoglobin Concent 33.3 G/DL (32.0-36.0) Red Cell Distribution Width 11.7 % (11.6-14.8) Platelet Count 215 K/UL (150-450) Mean Platelet Volume 7.3 FL (6.5-10.1) Neutrophils (%) (Auto) 75.2 % (45.0-75.0) H Lymphocytes (%) (Auto) 15.3 % (20.0-45.0) L Monocytes (%) (Auto) 9.0 % (1.0-10.0) Eosinophils (%) (Auto) 0.2 % (0.0-3.0) Basophils (%) (Auto) 0.3 % (0.0-2.0) Sodium Level 142 MMOL/L (136-145) Potassium Level 3.7 MMOL/L (3.5-5.1) Chloride Level 108 MMOL/L (98-107) H Carbon Dioxide Level 30 MMOL/L (21-32) Anion Gap 4 mmol/L (5-15) L Blood Urea Nitrogen 15 mg/dL (7-18) Creatinine 1.2 MG/DL (0.55-1.30) Estimat Glomerular Filtration Rate > 60 mL/min (>60) Glucose Level 99 MG/DL (74-106) Calcium Level 9.1 MG/DL (8.5-10.1) Phosphorus Level 2.4 MG/DL (2.5-4.9) L Magnesium Level 2.0 MG/DL (1.8-2.4) Ferritin 988 NG/ML (8-388) H Total Bilirubin 0.5 MG/DL (0.2-1.0) Aspartate Amino Transf (AST/SGOT) 24 U/L (15-37) Alanine Aminotransferase (ALT/SGPT) 35 U/L (12-78) Alkaline Phosphatase 48 U/L (46-116) C-Reactive Protein, Quantitative 1.3 mg/dL (0.00-0.90) H Total Protein 5.5 G/DL (6.4-8.2) L Albumin 2.4 G/DL (3.4-5.0) L Globulin 3.1 g/dL Albumin/Globulin Ratio 0.8 (1.0-2.7) L Test 08/18/20 16:42 POC Whole Blood Glucose Pending Current Medications Medications (Trade) Dose Ordered Sig/Torsten Route PRN Reason Start Time Stop Time Status Last Admin Dose Admin Acetaminophen (Tylenol) 650 mg Q4H PRN ORAL Mild Pain (Pain Scale 1-3) 08/10/20 11:45 09/09/20 11:44 Albuterol Sulfate (Proventil MDI) 2 puff Q4H PRN INH Shortness of Breath 08/10/20 13:30 11/08/20 13:29 Dexamethasone Sodium Phosphate (Decadron 10mg/ ml Inj) 6 mg DAILY IV 08/11/20 09:00 08/20/20 09:01 08/18/20 09:35 Dextrose (Dextrose 50%) 25 ml Q30M PRN IV Hypoglycemia 08/10/20 11:45 11/08/20 11:44 Dextrose (Dextrose 50%) 50 ml Q30M PRN IV Hypoglycemia 08/10/20 11:45 11/08/20 11:44 Insulin Aspart (NovoLOG) BEFORE MEALS AND HS SUBQ 08/10/20 21:00 11/08/20 20:59 08/18/20 17:23 Pantoprazole (Protonix) 40 mg DAILY IV 08/11/20 09:00 09/10/20 08:59 08/18/20 09:34 Phosphorus (Phospha 250 Neutral) 250 mg THREE TIMES A DAY ORAL 08/16/20 13:00 09/15/20 12:59 08/18/20 17:21 Potassium Chloride (K-Dur) 40 meq TWICE A DAY ORAL 08/17/20 18:00 11/15/20 17:59 08/18/20 17:21 Rivaroxaban (Xarelto) 15 mg QPM ORAL 08/11/20 16:30 11/09/20 16:29 08/18/20 16:38 Byron Byers MD Aug 18, 2020 19:12
[2020-08-18 20:00] VITALS: BP 126/78
[2020-08-19] VITALS: BP 128/70
[2020-08-19 04:13] VITALS: BP 139/70
[2020-08-19] MEDS: NovoLOG Insulin Flexpen SUBQ SCH ×2 (06:30→11:30)
--- NOTE | 2020-08-19 07:35 | NUR ---
NURSE NOTES: PATIENT RECEIVED IN STABLE CONDITION.
[2020-08-19 08:00] VITALS: BP 125/62
--- NOTE | 2020-08-19 08:20 | Cardiac Electrophysiology PN ---
Assessment/Plan Assessment/Plan 1. Troponin elevation. The first troponin was negative but 2nd and 3rd troponin mildly elevated at 0.08 and 0.07 EKG is very low voltage, it is nondiagnostic. Patient is already on Xarelto 15 mg daily 2. Atrial fibrillation. Again low voltage. Rate is controlled. Patient is already on Xarelto. 3. Low-voltage QRS, likely due to patient's moderate pericardial effusion, but clinically no tamponade physiology. 4. COVID infection, completed remdesivir. On Dexamethasone and Xarelto. 5. History of diabetes. 6. Hypoxemia. SRIRAM RN Subjective Subjective In isolation for Covid. Completed Remdesevir, On Puree diet. Rapid Covid on 05/15 was again positive. Objective Last 24 Hour Vital Signs Date Time Temp Pulse Resp B/P (MAP) Pulse Ox O2 Delivery O2 Flow Rate FiO2 08/19/20 04:13 98.8 70 18 139/70 (93) 98 08/19/20 00:00 98.0 72 18 128/70 (89) 98 08/18/20 21:00 Room Air 08/18/20 20:00 98.7 78 18 126/78 (94) 98 08/18/20 16:00 98.5 61 18 129/81 (97) 97 08/18/20 12:00 98.4 69 19 117/76 (90) 97 08/18/20 09:00 Room Air Intake and Output 08/18/20 08/19/20 19:00 07:00 Intake Total 500 ml Output Total 900 ml 500 ml Balance -400 ml -500 ml Intake Oral 200 ml Other 300 ml Output Urine Total 900 ml 500 ml # Voids 3 Laboratory Tests Test 08/18/20 08:25 08/18/20 12:09 08/18/20 16:42 08/18/20 21:29 White Blood Count 8.5 K/UL (4.8-10.8) Red Blood Count 3.69 M/UL (4.70-6.10) L Hemoglobin 12.1 G/DL (14.2-18.0) L Hematocrit 36.2 % (42.0-52.0) L Mean Corpuscular Volume 98 FL (80-99) Mean Corpuscular Hemoglobin 32.7 PG (27.0-31.0) H Mean Corpuscular Hemoglobin Concent 33.3 G/DL (32.0-36.0) Red Cell Distribution Width 11.7 % (11.6-14.8) Platelet Count 215 K/UL (150-450) Mean Platelet Volume 7.3 FL (6.5-10.1) Neutrophils (%) (Auto) 75.2 % (45.0-75.0) H Lymphocytes (%) (Auto) 15.3 % (20.0-45.0) L Monocytes (%) (Auto) 9.0 % (1.0-10.0) Eosinophils (%) (Auto) 0.2 % (0.0-3.0) Basophils (%) (Auto) 0.3 % (0.0-2.0) Sodium Level 142 MMOL/L (136-145) Potassium Level 3.7 MMOL/L (3.5-5.1) Chloride Level 108 MMOL/L (98-107) H Carbon Dioxide Level 30 MMOL/L (21-32) Anion Gap 4 mmol/L (5-15) L Blood Urea Nitrogen 15 mg/dL (7-18) Creatinine 1.2 MG/DL (0.55-1.30) Estimat Glomerular Filtration Rate > 60 mL/min (>60) Glucose Level 99 MG/DL (74-106) Calcium Level 9.1 MG/DL (8.5-10.1) Phosphorus Level 2.4 MG/DL (2.5-4.9) L Magnesium Level 2.0 MG/DL (1.8-2.4) Ferritin 988 NG/ML (8-388) H Total Bilirubin 0.5 MG/DL (0.2-1.0) Aspartate Amino Transf (AST/SGOT) 24 U/L (15-37) Alanine Aminotransferase (ALT/SGPT) 35 U/L (12-78) Alkaline Phosphatase 48 U/L (46-116) C-Reactive Protein, Quantitative 1.3 mg/dL (0.00-0.90) H Total Protein 5.5 G/DL (6.4-8.2) L Albumin 2.4 G/DL (3.4-5.0) L Globulin 3.1 g/dL Albumin/Globulin Ratio 0.8 (1.0-2.7) L POC Whole Blood Glucose Pending Pending 122 MG/DL (74-106) H Test 08/19/20 06:11 POC Whole Blood Glucose 79 MG/DL (74-106) Objective HEAD AND NECK: Showed no JVD. LUNGS: Coarse rhonchi. CARDIOVASCULAR: Shows irregular S1 and S2 with no gallop or murmur. ABDOMEN: Soft. EXTREMITIES: No pitting edema. Ronald Baer MD Aug 19, 2020 08:20
[2020-08-19] MEDS: Pantoprazole Inj IV SCH (09:28)
[2020-08-19] MEDS: Phospha 250 Neutral tab ORAL SCH ×2 (09:29→13:00)
[2020-08-19] MEDS: dexAMETHasone 10mg/ml Inj IV SCH (09:30)
--- NOTE | 2020-08-19 09:46 | Pulmonology Progress Note ---
Subjective ROS Limited/Unobtainable: No Constitutional: Reports: fatigue; Denies: fever Gastrointestinal/Abdominal: Denies: nausea, vomiting, diarrhea Psychiatric: Denies: depression Skin: Denies: rash Musculoskeletal: Denies: pain Allergies: Coded Allergies: No Known Allergies (Unverified , 08/10/20) Subjective on MS floor no resp distress, no fevers repeated CXR 08/15 -> NGT on RA, pulse ox stable remains in isolation leuk resolved, on steroids completed 5 days of Remdesivivr dc was held since bed in SNF not available till Tuesday according to CM dc plan ongoing daughter declined SNF palcemetn, wants to take him home dc for today with services pending Objective Last 24 Hour Vital Signs Date Time Temp Pulse Resp B/P (MAP) Pulse Ox O2 Delivery O2 Flow Rate FiO2 08/19/20 08:00 97.5 66 19 125/62 (83) 100 08/19/20 04:13 98.8 70 18 139/70 (93) 98 08/19/20 00:00 98.0 72 18 128/70 (89) 98 08/18/20 21:00 Room Air 08/18/20 20:00 98.7 78 18 126/78 (94) 98 08/18/20 16:00 98.5 61 18 129/81 (97) 97 08/18/20 12:00 98.4 69 19 117/76 (90) 97 Intake and Output 08/18/20 08/19/20 19:00 07:00 Intake Total 500 ml Output Total 900 ml 500 ml Balance -400 ml -500 ml Intake Oral 200 ml Other 300 ml Output Urine Total 900 ml 500 ml # Voids 3 Objective General Appearance: cachetic, chronically ill looking, bedridden frail male, confused Lines, tubes and drains: peripheral HEENT: normocephalic, atraumatic, anicteric, Neck: non-tender, normal inspection, trachea midline Respiratory/Chest: no accessory muscle use; f CTAB Cardiovascular/Chest: regular rhythm, Abdomen: normal bowel sounds, non tender, soft Extremities: no calf tenderness, normal capillary refill, no edema Neurologic: abnormal gait, confused, poorly responsive, moves all extremities Musculoskeletal: atrophy - BLE Laboratory Tests 08/18/20 12:09: POC Whole Blood Glucose [Pending] 08/18/20 16:42: POC Whole Blood Glucose [Pending] 08/18/20 21:29: POC Whole Blood Glucose 122H 08/19/20 06:11: POC Whole Blood Glucose 79 Current Medications Medications (Trade) Dose Ordered Sig/Torsten Route PRN Reason Start Time Stop Time Status Last Admin Dose Admin Acetaminophen (Tylenol) 650 mg Q4H PRN ORAL Mild Pain (Pain Scale 1-3) 08/10/20 11:45 09/09/20 11:44 Albuterol Sulfate (Proventil MDI) 2 puff Q4H PRN INH Shortness of Breath 08/10/20 13:30 11/08/20 13:29 Dexamethasone Sodium Phosphate (Decadron 10mg/ ml Inj) 6 mg DAILY IV 08/11/20 09:00 08/20/20 09:01 08/19/20 09:30 Dextrose (Dextrose 50%) 25 ml Q30M PRN IV Hypoglycemia 08/10/20 11:45 11/08/20 11:44 Dextrose (Dextrose 50%) 50 ml Q30M PRN IV Hypoglycemia 08/10/20 11:45 11/08/20 11:44 Insulin Aspart (NovoLOG) BEFORE MEALS AND HS SUBQ 08/10/20 21:00 11/08/20 20:59 08/18/20 17:23 Pantoprazole (Protonix) 40 mg DAILY IV 08/11/20 09:00 09/10/20 08:59 08/19/20 09:28 Phosphorus (Phospha 250 Neutral) 250 mg THREE TIMES A DAY ORAL 08/16/20 13:00 09/15/20 12:59 08/19/20 09:29 Potassium Chloride (K-Dur) 40 meq TWICE A DAY ORAL 08/17/20 18:00 11/15/20 17:59 08/19/20 09:29 Rivaroxaban (Xarelto) 15 mg QPM ORAL 08/11/20 16:30 11/09/20 16:29 08/18/20 16:38 Assessment/Plan Assessment/Plan ASSESSMENT Probably sepsis Recent COVID infection/ never treated Probable PNA Aspiration risk Elevated troponin Bradycardia Paroxysmal atrial fibrillation Acute encephalopathy Elevated D dimer JERRY -resolved Proteinuria, HTN DM Electrolyte imbalance Protein calorie malnutrition PLAN OF CARE MS floor isolation room titrate Fio2 to keep sat above 92%, currently on RA pulse ox stable Albuterol via MDI prn empiric abx, BCX 08/10 NGTD steroids /Day #9 completed Remdesivir for 5 days mild leukocytosis, probably due to steroids -resolved ID follows recent COVID 19 at [facility], not treated at that time, closely monitor resp status repeat COVID 19 08/15 still positive CRP and ferritin trending down CXR 08/12 NGT for acute CP pathology CXR 08/15 no acute process off Zosyn aspiration precautions minimal troponin elevation 08/13 and 08/14 cardio eval appreciates PAF rate controlled on Xarelto already prior at night ericka in high 50th, during the day no ericka closely monitor renal parameters, nephro eval appreciated continue hydration creat remains stable K replaced 08/17, stable 08/18 BSSE done, but pt not participated diet texture as per ST recs now eating, declined NGT aspiration precautions s/p IVF, BP and BS management GI prophylaxis protein suppl as per RD recs supportive care full code dc 08/16 was held since SNF will not have a bed for him till Tuesday according to CM notes dc plan ongoing pending bed availability had 5 days of Remdesivir and 9 days of steroids daughter declined SNF, wants to take him home dc today with HH services case discussed and evaluated by supervising physician Orly Dick NP Aug 19, 2020 09:46 Sonu Fagan MD Aug 19, 2020 12:12
[2020-08-19 10:20] LABS: BASOPHILS % (AUTO) 0.7 % (0.0-2.0); EOSINOPHILS % (AUTO) 0.3 % (0.0-3.0); HEMATOCRIT 41.8 % (42.0-52.0); HEMOGLOBIN 13.6 G/DL (14.2-18.0); LYMPHOCYTES % (AUTO) 15.4 % (20.0-45.0); MEAN CORPUSCULAR VOLUME 100 FL (80-99); MONOCYTES % (AUTO) 6.3 % (1.0-10.0); NEUTROPHILS % (AUTO) 77.3 % (45.0-75.0); PLATELET COUNT 237 K/UL (150-450); RED BLOOD COUNT 4.19 M/UL (4.70-6.10); RED CELL DISTRIBUTION WIDTH 11.8 % (11.6-14.8); WHITE BLOOD COUNT 8.5 K/UL (4.8-10.8)
[2020-08-19 10:31] LABS: ANION GAP 4 mmol/L (5-15); BLOOD UREA NITROGEN 18 mg/dL (7-18); CALCIUM 9.7 MG/DL (8.5-10.1); CARBON DIOXIDE 30 MMOL/L (21-32); CHLORIDE 104 MMOL/L (98-107); CREATININE 1.3 MG/DL (0.55-1.30); POTASSIUM 4.9 MMOL/L (3.5-5.1); SODIUM 138 MMOL/L (136-145)
[2020-08-19 12:00] VITALS: BP 100/48
--- NOTE | 2020-08-19 12:52 | Nephrology Progress Note ---
Assessment/Plan Problem List: (1) Dehydration (2) JERRY (acute kidney injury) (3) Sepsis (4) COVID-19 (5) Encephalopathy Assessment JERRY- Sepsis, recent Covid infection, possible pneumonia Aspiration risk Acute encephalopathy Hypertension Diabetes mellitus BMI 20.5/protein calorie malnutrition Plan August 19: Records data reviewed. Stable from renal standpoint of view. Continue per PMD. August 18: Labs reviewed. Abnormal electrolyte addressed. Continue same treatment plan. August 17: Labs are reviewed. Potassium low. Potassium supplement given. C heck labs tomorrow. August 16: Labs reviewed. Low phosphorus replaced. Stable from renal standpoint of view. Due for discharge to SNF today as he received 5 days of remdesivir and 7 days of steroids August 15: Labs reviewed. Low magnesium and low phosphorus replacement ordered. Continue per consultants. August 14: No chemistry panel done today. Stable from renal standpoint of view. August 13: Labs reviewed. Renal parameters and electrolytes stable. Continue per ID/pulmonary management. Patient on antibiotics, remdesivir, steroids Continue to hydrate Monitor blood sugar Monitor electrolytes and renal parameters Urine studies Avoid nephrotoxic's Per orders Subjective ROS Limited/Unobtainable: No Constitutional: Reports: malaise, weakness Objective Objective Last 24 Hour Vital Signs Date Time Temp Pulse Resp B/P (MAP) Pulse Ox O2 Delivery O2 Flow Rate FiO2 08/19/20 09:00 Room Air 08/19/20 08:00 97.5 66 19 125/62 (83) 100 08/19/20 04:13 98.8 70 18 139/70 (93) 98 08/19/20 00:00 98.0 72 18 128/70 (89) 98 08/18/20 21:00 Room Air 08/18/20 20:00 98.7 78 18 126/78 (94) 98 08/18/20 16:00 98.5 61 18 129/81 (97) 97 Intake and Output 08/18/20 08/19/20 19:00 07:00 Intake Total 500 ml Output Total 900 ml 500 ml Balance -400 ml -500 ml Intake Oral 200 ml Other 300 ml Output Urine Total 900 ml 500 ml # Voids 3 Current Medications Medications (Trade) Dose Ordered Sig/Torsten Route PRN Reason Start Time Stop Time Status Last Admin Dose Admin Acetaminophen (Tylenol) 650 mg Q4H PRN ORAL Mild Pain (Pain Scale 1-3) 08/10/20 11:45 09/09/20 11:44 Albuterol Sulfate (Proventil MDI) 2 puff Q4H PRN INH Shortness of Breath 08/10/20 13:30 11/08/20 13:29 Dexamethasone Sodium Phosphate (Decadron 10mg/ ml Inj) 6 mg DAILY IV 08/11/20 09:00 08/20/20 09:01 08/19/20 09:30 Dextrose (Dextrose 50%) 25 ml Q30M PRN IV Hypoglycemia 08/10/20 11:45 11/08/20 11:44 Dextrose (Dextrose 50%) 50 ml Q30M PRN IV Hypoglycemia 08/10/20 11:45 11/08/20 11:44 Insulin Aspart (NovoLOG) BEFORE MEALS AND HS SUBQ 08/10/20 21:00 11/08/20 20:59 08/18/20 17:23 Pantoprazole (Protonix) 40 mg DAILY IV 08/11/20 09:00 09/10/20 08:59 08/19/20 09:28 Phosphorus (Phospha 250 Neutral) 250 mg THREE TIMES A DAY ORAL 08/16/20 13:00 09/15/20 12:59 08/19/20 09:29 Potassium Chloride (K-Dur) 40 meq TWICE A DAY ORAL 08/17/20 18:00 11/15/20 17:59 08/19/20 09:29 Rivaroxaban (Xarelto) 15 mg QPM ORAL 08/11/20 16:30 11/09/20 16:29 08/18/20 16:38 Laboratory Tests 08/18/20 16:42: POC Whole Blood Glucose [Pending] 08/18/20 21:29: POC Whole Blood Glucose 122H 08/19/20 06:11: POC Whole Blood Glucose 79 08/19/20 10:00: White Blood Count 8.5, Red Blood Count 4.19L, Hemoglobin 13.6L, Hematocrit 41.8L , Mean Corpuscular Volume 100H, Mean Corpuscular Hemoglobin 32.5H, Mean Corpuscular Hemoglobin Concent 32.6, Red Cell Distribution Width 11.8, Platelet Count 237, Mean Platelet Volume 8.5, Neutrophils (%) (Auto) 77.3H, Lymphocytes (%) (Auto) 15.4L, Monocytes (%) (Auto) 6.3, Eosinophils (%) (Auto) 0.3, Basophils (%) (Auto) 0.7, Sodium Level 138, Potassium Level 4.9, Chloride Level 104, Carbon Dioxide Level 30, Anion Gap 4L, Blood Urea Nitrogen 18, Creatinine 1.3, Estimat Glomerular Filtration Rate > 60, Glucose Level 102, Calcium Level 9.7 Height (Feet): 6 Height (Inches): 2.00 Weight (Pounds): 160 General Appearance: no apparent distress Cardiovascular: normal rate Respiratory/Chest: decreased breath sounds Abdomen: soft, distended Objective No change Eyad Hunt MD Aug 19, 2020 12:52
--- NOTE | 2020-08-19 13:00 | NUR ---
NURSE NOTES: DISCHARGE ORDER RECEIVED FOR HOME WITH HOME HEALTH. DC PAPERS PREPARED. REPORT GIVEN TO AMBULANCE PERSONNEL. PERSONAL BELONGING ( ONE GOLD RING) ACCOUNTED FOR. DAUGHTER NOTIFIED BY CASE MANAGEMENT. DTR AT HOME TO RECEIVE PATIENT.
--- NOTE | 2020-08-20 15:50 | Discharge Summary ---
Discharge Summary Discharge Summary _ DATE OF ADMISSION: 08/10/2020 DATE OF DISCHARGE: 08/19/2020 DISCHARGED BY: REASON FOR ADMISSION: 85 years old male, resident of senior care facility, with past medical history of hypertension, diabetes mellitus, recent COVID-19, was sent for evaluation due to hypoxia. Patient was noted in the facility to have pulse oximetry in the 80s. Patient was placed on 100% nonrebreathing mask with improvement in saturation to 92%. Patient was unable to provide any history . Patient was recently admitted to [facility] for generalized weakness, was diagnosed with COVID-19, was doing better and never was treated with steroids or Remdesivir. Patient was on Xarelto for DVT prophylaxis Upon evaluation in emergency department pulse oximetry was 92% on 100% nonrebreather mask, ABG on NRM was stable. Rapid COVID-19 was positive No leukocytosis , hemoglobin 13.8 , hematocrit 42.3, platelet count 119 . D-dimer 0.95 LDH 396, ferritin 1927, CRP 3.2 Electrolytes and renal parameters stable. Lactic acid 4.6 Troponin negative , pro BNP 8[address] . ECG revealed ST no acute ischemic changes Albumin 3.3 . Urinalysis pending at this time. CXR revealed no acute cardiopulmonary pathology. In emergency department patient received empiric antibiotic, septic work-up initiated : pt received fluid bolus, pancultured, started on empiric antibiotic and will be admitted for further management. CONSULTANTS: mat cleaning machine operator Dr. Ivan FORDE specialist Dr. Byers baking factory worker Dr. Hunt [facility] COURSE: Patient admitted to isolation room. Supplemental oxygen titrated to keep pulse oximetry above 92%. Albuterol via MDI provided as needed. Patient started on empiric antibiotics, steroids and remdesivir. Inflammatory markers were closely monitored. Patient was followed-up with chest x-ray. Aspiration precaution maintained. DVT prophylaxis provided. As patient clinically improved, he was able to be weaned to room air . Blood culture 08/10 were negative. Patient completed 5 days of remdesivir and course of steroids. Mild leukocytosis, which was likely due to steroids , resolved. Repeated COVID-19 08/15 still was positive. CRP and ferritin trending down. Chest x-ray on 08/12 revealed no acute cardiopulmonary pathology, and repeated chest x-ray 08/15 also revealed no acute process. Antibiotics were stopped. Aspiration precaution maintained. Patient with history of paroxysmal atrial fibrillation ; already was on Xarelto, rate was controlled. Agriculture Specialist followed for acute kidney injury. Patient started on the hydration. Potassium replaced. Creatinine remained stable. Nephrotoxic's were avoided Bedside swallow evaluation was done , but patient was not participated initially. Patient declined NG tube . As patient clinically improved , food intake increased. Patient required full assistance with meals. Aspiration precaution maintained. IV fluids discontinued. Blood pressure and blood sugar were closely monitored and managed with existing regimen. GI prophylaxis provided. Protein supplements provided as per registered dietitian recommendation. Supportive care provided. Daughter decided that she wants to take her father back home . Home health services were arranged. Patient clinically stabilized and was ready for discharge home with home health services. FINAL DIAGNOSES: Probably sepsis COVID-19 infection Probable pneumonia Aspiration risk Paroxysmal atrial fibrillation Acute encephalopathy Elevated D-dimer Acute kidney injury- resolved Proteinuria Hypertension Diabetes mellitus Electrolyte imbalance Protein calorie malnutrition DISCHARGE MEDICATIONS: See Medication Reconciliation list. DISCHARGE INSTRUCTIONS: Patient was discharged home with home health services. Follow up with primary care provider in one week. Orly Dick NP Aug 20, 2020 15:50
--- NOTE | 2020-08-22 17:00 | Cardiology Report ---
APPROVED REPORT EKG Measurement Heart [id number] <Conclusion> Atrial fibrillation Cannot rule out Anterior infarct, age undetermined Abnormal ECG
--- NOTE | 2020-08-22 17:04 | Cardiology Report ---
APPROVED REPORT EKG Measurement Heart [id number] <Conclusion> Atrial fibrillation Low voltage QRS Nonspecific ST and T wave abnormality Abnormal ECG
== END 2020-08-19 14:15 | disposition home health service (06) | DRG 871 ==
LOC: EDBD 08:13 → EDBEDREQSVC 08:21 → EMR 08:44 → ICU 08:56 → UNDOADMIN 08:56 → EDBEDREQ 10:19 → EDBEDREQSVC 12:20 → EDBEDREQ 14:01 → 2W 14:06 → 4E 08-16 17:20
PROC: XW033E5 Introduction of Remdesivir Anti-infective into Peripheral Vein, Percutaneous Approach, New Technology Group 5 (ICD-10-PCS; principal; 2020-08-10)
DX: A41.9 Sepsis, unspecified organism (principal); U07.1 COVID-19; J12.89 Other viral pneumonia; G93.40 Encephalopathy, unspecified; E46 Unspecified protein-calorie malnutrition; N17.9 Acute kidney failure, unspecified; I31.3 Pericardial effusion (noninflammatory); I10 Essential (primary) hypertension; E11.9 Type 2 diabetes mellitus without complications; I48.0 Paroxysmal atrial fibrillation; Z79.01 Long term (current) use of anticoagulants; R09.02 Hypoxemia; E86.0 Dehydration; R00.1 Bradycardia, unspecified
CPT/HCPCS: 36415; 71045; 80048; 80053; 80061; 80202; 81003; 82140; 82248; 82550; 82553; 82728; 82803; 82962; 82977; 83036; 83605; 83615; 83690; 83735; 83880; 84100; 84300; 84443; 84484; 84550; 85007; 85025; 85379; 85610; 85730; 86140; 87040; 87081; 89050; 93005; 93306; 96361; 96365; 96368; 99285; C9399; J1815; J3490; J7030; J8499; U0002